=== PATIENT | female | born 1965 | race Caucasian/White ===

== ENCOUNTER 2016-04-29 01:45 | Emergency (ER) | payer OTHER ==
[~2016-04-29] VITALS: Ht 162.5 cm; Wt 102.1 kg
[~2016-04-29 01:45] MED LIST: ALBUTEROL0.09 MG/A2 IH; AMARYL4 MG PO; AMITRIPTYLINE25 MG PO; AMITRIPTYLINE50 MG PO; ASPIRIN ADULT L81 M1 PO; ASPIRIN81 M1 PO; AVELOX400 MG PO; CYCLOBENZAPRINE10 MG PO; DOXYCYCLINE HY100 M3 PO; ELAVIL25 MG PO; FLONASE 0.05% 121 EA NAS; HUMALOG 751 UNIT/0.0 SC; HUMALOG100 U/ML SC; IMODIUM2 MG PO; KEFLEX500 MG PO; LISINOPRIL10 MG PO; LISINOPRIL5 MG PO; LOMOTIL 0.025 M1 TA1 PO; LOMOTIL 0.025 M1 TAB PO; MELATONIN3 MG PO; MOTRIN800 MG PO; NAPROSYN500 MG PO; NEURONTIN100 MG PO; NEURONTIN600 MG PO; NEURONTIN800 MG PO; NORCO 5-325 TA1 EACH PO; Orphenadrine C100 MG PO; PREDNICOT10 MG PO; PREDNICOT20 MG PO; ROBITUSSIN AC 110 ML PO; SINGULAIR10 MG PO; TRAD5TAB1 PO; ULTRAM50 MG PO; VOLTAREN50 M1 PO; WOMEN'S ONE DAI1 TAB; ZITHROMAX250 MG PO; ZOFRAN ODT4 MG SL; ZOFRAN ODT8 MG PO; ZOFRAN4 MG PO; [UNRECOGNIZED DRUG - OTHER]
[2016-04-29 02:09] LABS: BASO % 0.3 % (0.0-1.0); HEMATOCRIT 38.6 % (37.0-47.0); HEMOGLOBIN 13.4 g/dl (12.0-16.0); LYMPH # 0.8 10*3/uL (1.3-4.4); LYMPH % 11.4 % (27.0-41.0); MEAN CELL VOLUME 83.9 fl (81.0-99.0); MEAN CORPUSCULAR HGB 29.1 pg (27.0-31.0); MEAN CORPUSCULAR HGB CONC 34.7 g/dl (33.0-37.0); MONO # 0.5 10*3/uL (0.1-1.0); MONO % 6.7 % (3.0-9.0); NEUT # 5.4 10*3/uL (2.3-7.9); NEUT % 81.3 % (47.0-73.0); PLATELET COUNT AUTOMATED 228 10*3/uL (130-400); RED CELL DISTRI WIDTH 12.4 % (0-14.5); WHITE BLOOD COUNT 6.7 10*3/uL (4.8-10.8)
[2016-04-29 02:22] LABS: ALBUMIN 3.4 gm/dl (3.1-4.5); ALKALINE PHOSPHATASE 74 U/L (45-117); BUN 12 mg/dl (7-24); CARBON DIOXIDE 23 mmol/L (21-32); CHLORIDE 105 mmol/L (98-107); EST GLOM FILT AFRICAN AMERICAN > 60 ml/min; GLUCOSE 410 mg/dL (65-99); POTASSIUM 4.1 mmol/L (3.5-5.1); SGOT/AST 9 IU/L (3-35); SGPT/ALT 17 U/L (12-78); SODIUM 140 mmol/L (136-145); TOTAL PROTEIN 6.7 gm/dL (6.4-8.2)
[2016-04-29] MEDS ORDERED: ZOFRAN ODT4 MG SL (02:49)
[2016-04-29 03:11] LABS: BILIRUBIN NEGATIVE (NEGATIVE); BLOOD NEGATIVE (NEGATIVE); CLARITY CLEAR (CLEAR); COLOR YELLOW (YELLOW); GLUCOSE 3+ (NEGATIVE); KETONE 2+ (NEGATIVE); LEUKO ESTERASE NEGATIVE (NEGATIVE); NITRITE NEGATIVE (NEGATIVE); PROTEIN NEGATIVE (NEGATIVE); UROBILINOGEN 0.2 E.U./dl (0.2-1.0)
[2016-04-29 03:18] LABS: EPITHELIAL CELLS 15-20; URINE REFLEX COMMENT NO (NO)
== END 2016-04-29 03:35 | disposition home or self-care (01) ==
LOC: ED 01:45
PROVIDERS: Emergency Medicine
DX: R11.2 Nausea with vomiting, unspecified (principal); R19.7 Diarrhea, unspecified; R73.9 Hyperglycemia, unspecified; I10 Essential (primary) hypertension; E13.10 Other specified diabetes mellitus with ketoacidosis without coma; Z88.6 Allergy status to analgesic agent; Z88.1 Allergy status to other antibiotic agents; Z88.8 Allergy status to other drugs, medicaments and biological substances; Z79.82 Long term (current) use of aspirin; Z79.899 Other long term (current) drug therapy

== ENCOUNTER 2016-06-30 17:18 | Inpatient (IN) | payer OTHER ==
[~2016-06-30] VITALS: Ht 162.6 cm; Wt 96.3 kg
--- NOTE | ~2016-06-30 | PR ---
[place], [place] PROGRESS NOTE NAME: SUELLEN ERWIN UNIT #: [id number] ROOM: 528 DOCTOR: RENETTA PHOENIX MD BIRTHDATE: [birth year] DOS: SUBJECTIVE: The patient who has been admitted to the hospital with nausea, vomiting and diarrhea, she is slowly getting better. She is still having some cramps in the abdomen, and she is tolerating food good and her abdomen is not distended. There is no localized tenderness in the abdomen. Her urine culture and sensitivity did not grow any bacteria. Clostridium difficile toxins were negative. OBJECTIVE: VITAL SIGNS: Blood pressure 135/70, pulse 80, respirations 20, temperature 97.6. PLAN: We will continue with the present treatment, possibly she will go home tomorrow. RENETTA PHOENIX MD CM:PNTRANS [phone] RENETTA PHOENIX MD 07/04/16 0538 interface
--- NOTE | ~2016-06-30 | CON ---
[place], [place] REPORT OF CONSULTATION NAME: SUELLEN ERWIN UNIT #: [id number] ROOM: 528 DOCTOR: JEANETTE KRAMERAYSE BIRTHDATE: [birth year] DOS: 07/03/2016 CHIEF COMPLAINT: A 50-year-old patient who was presented with chief complaint of epigastric abdominal pain, diarrhea. HISTORY OF PRESENT ILLNESS: The patient had endoscopic evaluation, was found to have gastritis. Gastric biopsy was done and under medication. The patient's consultation was dictated irritable bowel syndrome, diabetes mellitus, hypertension, obesity, gastroenteritis, all has been recognized. PAST SURGICAL HISTORY: Carpal tunnel, cholecystectomy, ____ tubal ligation. REVIEW OF SYSTEMS: HEENT: Denies double vision, blurred vision. RESPIRATORY: Denies shortness of breath. CARDIOVASCULAR: Denies chest pain. DIGESTIVE SYSTEM: Nausea and vomiting has improved; however, she is saying that she has 2-3 liquid bowel movement. Stool has been sent for evaluation. PHYSICAL EXAMINATION: VITAL SIGNS: Stable. HEENT: Head normocephalic, nontraumatic. Mouth and buccal mucosa benign. NECK: Supple, no thyromegaly. CHEST: Symmetric anatomy, equal expansion. No wheeze, no rhonchi. HEART: Normal sinus rhythm, no gallop, no murmur. ABDOMEN: Soft. No hepato-organomegaly. Bowel sounds present. No pulsatile mass. Obese. EXTREMITIES: No cyanosis, no pedal edema. NEUROLOGICAL: Alert, oriented to time, place, person. IMPRESSION AND PLAN: Liquid diarrhea, C. diff negativity, urine and blood cultures negative. The patient with history of irritable bowel syndrome. The patient drinks 2-3 liters of carbonated soda per day that I have discussed with her in her room and the last bottle was just been opened and I believe that is the culprit for sugar overloading in the patient. I have asked her to abstain from drinking carbonated soda. Hopefully, she will comply and that would be the cause for diarrhea. Otherwise, if she continues to have diarrhea, then next day or two, we will consider colonoscopy. OTHER ADJUNCTIVE DIAGNOSES: As outlined in the paragraph of past medical and surgical history. [place], [place] REPORT OF CONSULTATION NAME: RIPSUELLEN GRAMAJO UNIT #: [id number] ROOM: 528 DOCTOR: AYSE REID MD BIRTHDATE: [birth year] AYSE REID MD CM:CONSTR:REPORT OF CONSULTATION 1200 07/04/16 0717 interface
--- NOTE | ~2016-06-30 | CON ---
[place], [place] REPORT OF CONSULTATION NAME: SUELLEN ERWIN UNIT #: [id number] ROOM: 528 DOCTOR: AYSE REID MD BIRTHDATE: [birth year] DOS: 07/01/2016 HISTORY OF PRESENT ILLNESS: A 50-year-old patient who presented with chief complaint of nausea, vomiting, epigastric distress, and changes in bowel habits, few bowel movements that she considers to be diarrhea. The patient has been investigated in last year with normal colonoscopic evaluation. At the time of admission, white blood cell was 7, H and H of 13 and 39. Differential within normal limits except glucose was 400+. Electrolytes balanced, lipase, and liver function tests are all within normal limits. Troponin normal. Urinalysis was unremarkable except 1+ ketones that was expected. CBC differential within normal limits. Hemoglobin A1c 10.4. Basic metabolic panel has been reassessed. Magnesium and phosphorus within normal limits. PAST MEDICAL HISTORY: Associated hypertension, obesity, IBS, diabetes mellitus, most likely viral gastroenteritis. PAST SURGICAL HISTORY: Cholecystectomy, carpal tunnel, podiatric, and tubal ligation. SOCIAL HISTORY: Nonsmoker, nonalcohol consumer. ALLERGIES: To multiple medications including DOXYCYCLINE, LEVAQUIN, KEFLEX, PERCOCET, COMPAZINE as well, and TESSALON. MEDICATIONS: List has been reviewed including amitriptyline. REVIEW OF SYSTEMS: HEENT: Denies double vision, blurred vision. RESPIRATORY: Denies shortness of breath. CARDIOVASCULAR: Denies chest pain. DIGESTIVE SYSTEM: Nausea, vomiting, diarrhea. PHYSICAL EXAMINATION: VITAL SIGNS: Stable. GENERAL: No acute distress, nontoxic patient. HEENT: Head normocephalic, nontraumatic. Mouth and buccal mucosa benign. NECK: Supple, no thyromegaly. CHEST: Symmetric anatomy, equal expansion. No wheeze, no rhonchi. HEART: Normal sinus rhythm, no gallop, no murmur. ABDOMEN: Obese, soft. No hepato-organomegaly. Bowel sounds positive. Nonspecific tenderness. EXTREMITIES: No cyanosis. No pedal edema. Evidence of vitiligo upper and lower extremities anatomy and head and neck was noticed. NEUROLOGIC: Alert, oriented to time, place, person. IMPRESSION: 1. Diabetes mellitus, diabetic ketoacidosis with 1+ ketones positivity, glucose was approximately 445. Most likely viral gastroenteritis as a cause of diarrhea and possibility of irritable bowel syndrome, hypertension, obesity, all has been recognized. [place], [place] REPORT OF CONSULTATION NAME: SUELLEN ERWIN UNIT #: [id number] ROOM: 528 DOCTOR: AYSE REID MD BIRTHDATE: [birth year] PLAN AND DISCUSSION: We are going to endoscopically evaluate her upper GI tract and further decision to see if she has to be discharged and followed up as an outpatient. AYSE REID MD CM:CONSTR:REPORT OF CONSULTATION 1453 07/02/16 0428 interface
--- NOTE | ~2016-06-30 | O ---
[place], [place] OPERATIVE NOTE NAME: SUELLEN ERWIN UNIT #: [id number] ROOM: 528 DOCTOR: AYSE REID MD BIRTHDATE: [birth year] DOS: GASTROENDOSCOPIC REPORT INDICATIONS: A 50-year-old patient who has presented with chief complaint of epigastric abdominal pain, dyspepsia, nausea, vomiting, undergoing investigation. The patient with history of diarrhea, suspected of viral gastroenteritis in addition. Consultation in detail has been dictated. PROCEDURE: Today's procedure part of investigation is panendoscopy plus biopsy and photographic series. PREMEDICATION: Versed and Diprivan. SCOPE: Olympus forward-viewing gastroscope Q10 video. REPORT: After putting the patient in the left lateral position and after application of lubricant to the scope, the scope was introduced. Thereafter, under direct visualization, I advanced through the length of esophagus without difficulty. Distal esophagitis was noticed. Gastric pouch was entered. 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 Duodenal bulb, second and third part within normal limit. Antrum was biopsied. The patient extubated, tolerated the procedure well. IMPRESSION: Watermelon gastritis, bile reflux gastritis, status post biopsy. PLAN AND DISCUSSION: Protonix 40 mg IV b.i.d. while inpatient and as an outpatient 40 mg daily. As far as the diarrhea is concerned, is going to be self limiting. Diet is going to be soft. Clinical reassessment. Thank you very much indeed. AYSE REID MD CM:OPRECORD:OPERATIVE NOTE [phone] AYSE REID MD 07/01/162109 interface
--- NOTE | ~2016-06-30 | PR ---
[place], [place] PROGRESS NOTE NAME: SUELLEN REWIN UNIT #: [id number] ROOM: 528 DOCTOR: RENETTA PHOENIX MD BIRTHDATE: [birth year] DOS: 07/01/2016 ADDENDUM: The patient who has been admitted to hospital with vomiting, nausea and diarrhea, and the patient is stable. The detailed note will be dictated by the resident. I discussed with him. I saw this patient and also spoke with her personally. RENETTA PHOENIX MD CM:PNTRANS [phone] RENETTA PHOENIX MD 07/05/16 0654 interface
--- NOTE | ~2016-06-30 | PR ---
[place], [place] PROGRESS NOTE [id number] UN[facility] #: [id number] ROOM: 528 DOCTOR: RENETTA PHOENIX MD BIRTHDATE: [birth year] DOS: SUBJECTIVE: The patient, who has been admitted to hospital with nausea, vomiting and diarrhea. She is feeling better. She is able to tolerate liquids very well and she is also able to eat and she did not have any vomiting, and stools are formed, but she is still having 3 stools since yesterday and she denies having any pain in the abdomen and the patient was seen by Dr. Rizo, who is going to do her panendoscopy. This was done yesterday. Her stomach and duodenum were normal. Biopsy was taken. She has some gastritis due to bile reflex, otherwise it was normal. Advised the patient to be put on Protonix and her C. diff is negative. CK-MB and troponin level is normal. Blood pressure 120/64, pulse 78, respirations 18, temperature 98.4. I will encourage the patient to ambulate, put her Hep-Lock. I will continue to the other treatment, the same medication. The patient advised to drink lot of liquids. RENETTA PHOENIX MD CM:PNTRANS [phone] RENETTA PHOENIX MD 07/02/1639 interface
[2016-06-30 17:37] VITALS: BP 137/77
[2016-06-30] MEDS ORDERED: LISINOPRIL10 M1 PO (17:38)
[2016-06-30] MEDS ORDERED: MELATONIN10 M4 PO (17:39)
[2016-06-30] MEDS ORDERED: CYCLOBENZAPRINE10 MG PO (17:40)
[2016-06-30 18:00] LABS: BASO % 0.4 % (0.0-1.0); HEMATOCRIT 39.6 % (37.0-47.0); HEMOGLOBIN 13.3 g/dl (12.0-16.0); LYMPH % 14.4 % (27.0-41.0); MEAN CELL VOLUME 85.7 fl (81.0-99.0); MEAN CORPUSCULAR HGB 28.8 pg (27.0-31.0); MEAN CORPUSCULAR HGB CONC 33.6 g/dl (33.0-37.0); MONO # 0.4 10*3/uL (0.1-1.0); MONO % 6.1 % (3.0-9.0); NEUT # 5.7 10*3/uL (2.3-7.9); NEUT % 78.7 % (47.0-73.0); PLATELET COUNT AUTOMATED 254 10*3/uL (130-400); RED BLOOD COUNT 4.62 10*6/uL (4.10-5.10); RED CELL DISTRI WIDTH 12.2 % (0-14.5); WHITE BLOOD COUNT 7.2 10*3/uL (4.8-10.8)
[2016-06-30 18:16] LABS: ALBUMIN 3.6 gm/dl (3.1-4.5); ALKALINE PHOSPHATASE 84 U/L (45-117); BILIRUBIN, TOTAL 0.7 mg/dl (0.2-1.0); BUN 12 mg/dl (7-24); CARBON DIOXIDE 24 mmol/L (21-32); CHLORIDE 101 mmol/L (98-107); EST GLOM FILT AFRICAN AMERICAN > 60 ml/min; GLUCOSE 445 mg/dL (65-99); SGOT/AST 8 IU/L (3-35); SGPT/ALT 14 U/L (12-78); SODIUM 135 mmol/L (136-145); TOTAL PROTEIN 6.8 gm/dL (6.4-8.2)
[2016-06-30 19:12] LABS: BILIRUBIN NEGATIVE (NEGATIVE); BLOOD NEGATIVE (NEGATIVE); CLARITY CLEAR (CLEAR); COLOR YELLOW (YELLOW); GLUCOSE 3+ (NEGATIVE); KETONE 1+ (NEGATIVE); LEUKO ESTERASE NEGATIVE (NEGATIVE); NITRITE NEGATIVE (NEGATIVE); PH 5.5 (5.0-9.0); PROTEIN NEGATIVE (NEGATIVE); SPECIFIC GRAVITY <= 1.005 (1.005-1.030); UROBILINOGEN 0.2 E.U./dl (0.2-1.0)
[2016-06-30 19:19] LABS: BACTERIA TRACE
[2016-06-30 19:20] LABS: RBC 0-2 rbc/hpf (0-2)
[2016-06-30 19:21] LABS: URINE REFLEX COMMENT YES (NO)
[2016-06-30 20:25] VITALS: BP 135/76
[2016-07-01] VITALS (11 sets, daily range): BP systolic 116–142; BP diastolic 51–67
[2016-07-01 00:44] LABS: CPK 44 U/L (26-192)
[2016-07-01 00:47] LABS: CKMB < 0.5 ng/ml (0.5-3.6); TROPONIN I < 0.015 ng/ml (<0.045)
[2016-07-01 04:25] LABS: BASO % 0.6 % (0.0-1.0); HEMATOCRIT 37.3 % (37.0-47.0); HEMOGLOBIN 12.7 g/dl (12.0-16.0); LYMPH # 1.3 10*3/uL (1.3-4.4); LYMPH % 26.2 % (27.0-41.0); MEAN CELL VOLUME 86.5 fl (81.0-99.0); MEAN CORPUSCULAR HGB 29.5 pg (27.0-31.0); MONO # 0.4 10*3/uL (0.1-1.0); MONO % 8.9 % (3.0-9.0); NEUT # 3.1 10*3/uL (2.3-7.9); NEUT % 63.7 % (47.0-73.0); PLATELET COUNT AUTOMATED 250 10*3/uL (130-400); RED BLOOD COUNT 4.31 10*6/uL (4.10-5.10); RED CELL DISTRI WIDTH 12.2 % (0-14.5); WHITE BLOOD COUNT 4.9 10*3/uL (4.8-10.8)
[2016-07-01 04:37] LABS: BUN 8 mg/dl (7-24); CARBON DIOXIDE 29 mmol/L (21-32); CHLORIDE 108 mmol/L (98-107); EST GLOM FILT AFRICAN AMERICAN > 60 ml/min; GLUCOSE 171 mg/dL (65-99); POTASSIUM 3.7 mmol/L (3.5-5.1); SODIUM 144 mmol/L (136-145)
[2016-07-01 04:42] LABS: FREE T4 1.04 ng/dl (0.76-1.46); PHOSPHOROUS 3.5 mg/dL (2.5-4.9)
[2016-07-01 04:45] LABS: HEMOGLOBIN A1c 10.4 % (4.8-5.6)
[2016-07-01 06:16] LABS: CKMB 0.6 ng/ml (0.5-3.6); CPK 48 U/L (26-192)
[2016-07-01 06:23] LABS: TROPONIN I < 0.015 ng/ml (<0.045)
[2016-07-01] MEDS ORDERED: IMITREX100 MG PO (09:56)
[2016-07-01 12:10] LABS: CKMB 0.8 ng/ml (0.5-3.6); CPK 41 U/L (26-192)
[2016-07-01 12:13] LABS: TROPONIN I < 0.015 ng/ml (<0.045)
[2016-07-02 00:27] VITALS: BP 120/64
[2016-07-02 08:00] VITALS: BP 150/76
[2016-07-02 12:00] VITALS: BP 139/79
[2016-07-02 16:00] VITALS: BP 140/79
[2016-07-02 20:00] VITALS: BP 143/63
[2016-07-03] VITALS: BP 135/70
[2016-07-03 08:00] VITALS: BP 146/60
[2016-07-03 12:00] VITALS: BP 139/74
[2016-07-03 16:00] VITALS: BP 130/75
[2016-07-03 20:00] VITALS: BP 133/85
[2016-07-04] VITALS: BP 128/71
[2016-07-04 08:00] VITALS: BP 131/65
[2016-07-04 12:00] VITALS: BP 135/76
[2016-07-04] MEDS ORDERED: FLAGYL500 MG PO (14:18)
[2016-07-06 20:13] LABS: FINAL RESULT Final report (.)
== END 2016-07-04 15:59 | disposition home or self-care (01) | DRG 871 ==
LOC: ED 17:18 → 5E 19:04 → EDHOLD 19:04 → 5E 19:58
PROVIDERS: Student in an Organized Health Care Education/Training Program
PROC: 0DB68ZX Excision of Stomach, Via Natural or Artificial Opening Endoscopic, Diagnostic (ICD-10-PCS; principal; 2016-07-01)
DX: A41.9 Sepsis, unspecified organism (principal); E13.10 Other specified diabetes mellitus with ketoacidosis without coma; E11.49 Type 2 diabetes mellitus with other diabetic neurological complication; E87.1 Hypo-osmolality and hyponatremia; K52.9 Noninfective gastroenteritis and colitis, unspecified; K58.9 Irritable bowel syndrome, unspecified; I10 Essential (primary) hypertension; Z90.49 Acquired absence of other specified parts of digestive tract; Z82.49 Family history of ischemic heart disease and other diseases of the circulatory system; Z79.4 Long term (current) use of insulin; K29.60 Other gastritis without bleeding; E66.9 Obesity, unspecified; Z68.37 Body mass index [BMI] 37.0-37.9, adult

== ENCOUNTER 2016-11-18 18:30 | Emergency (ER) | payer BC ==
[~2016-11-18] VITALS: Ht 162.5 cm; Wt 102.1 kg
[~2016-11-18 18:30] MED LIST changes: +FLAGYL500 MG PO; +IMITREX100 MG PO; +LISINOPRIL10 M1 PO; +MELATONIN10 M4 PO
[2016-11-18 18:58] LABS: BILIRUBIN NEGATIVE (NEGATIVE); BLOOD 1+ (NEGATIVE); CLARITY SL CLOUDY (CLEAR); COLOR YELLOW (YELLOW); GLUCOSE 3+ (NEGATIVE); KETONE NEGATIVE (NEGATIVE); LEUKO ESTERASE NEGATIVE (NEGATIVE); NITRITE NEGATIVE (NEGATIVE); PH 6.5 (5.0-9.0); UROBILINOGEN 0.2 E.U./dl (0.2-1.0)
[2016-11-18 19:06] LABS: BACTERIA 1+; WBC 21-30 wbc/hpf (0-5)
[2016-11-18 20:21] LABS: BASO % 0.2 % (0.0-1.0); HEMATOCRIT 35.1 % (37.0-47.0); HEMOGLOBIN 11.9 g/dl (12.0-16.0); LYMPH # 0.5 10*3/uL (1.3-4.4); MEAN CORPUSCULAR HGB 29.2 pg (27.0-31.0); MEAN CORPUSCULAR HGB CONC 33.9 g/dl (33.0-37.0); MEAN PLATELET VOLUME 10.7 fl (9.6-12.3); MONO # 0.6 10*3/uL (0.1-1.0); MONO % 5.7 % (3.0-9.0); NEUT % 89.7 % (47.0-73.0); PLATELET COUNT AUTOMATED 195 10*3/uL (130-400); RED BLOOD COUNT 4.08 10*6/uL (4.10-5.10); RED CELL DISTRI WIDTH 12.5 % (0-14.5); WHITE BLOOD COUNT 11.1 10*3/uL (4.8-10.8)
[2016-11-18 20:37] LABS: ALBUMIN 3.1 gm/dl (3.1-4.5); ALKALINE PHOSPHATASE 75 U/L (45-117); BUN 19 mg/dl (7-24); CHLORIDE 104 mmol/L (98-107); CREATININE 0.67 mg/dL (0.55-1.02); LIPASE 66 U/L (73-393); MAGNESIUM 1.8 mg/dL (1.5-2.1); POTASSIUM 3.7 mmol/L (3.5-5.1); SGOT/AST 7 IU/L (3-35); SGPT/ALT 11 U/L (12-78); SODIUM 136 mmol/L (136-145); TOTAL PROTEIN 6.4 gm/dL (6.4-8.2)
[2016-11-19] MEDS ORDERED: CIPRO250 MG PO (01:05)
[2016-11-19] MEDS ORDERED: NORCO 5-325 TA1 EACH PO (01:05)
== END 2016-11-19 01:20 | disposition home or self-care (01) ==
LOC: ED 18:30
PROVIDERS: Emergency Medicine; Emergency Medicine Emergency Medical Services
DX: N39.0 Urinary tract infection, site not specified (principal); R10.30 Lower abdominal pain, unspecified; E13.40 Other specified diabetes mellitus with diabetic neuropathy, unspecified; I10 Essential (primary) hypertension; K58.9 Irritable bowel syndrome, unspecified; Z98.890 Other specified postprocedural states; Z98.51 Tubal ligation status; Z90.49 Acquired absence of other specified parts of digestive tract; Z79.82 Long term (current) use of aspirin; Z79.899 Other long term (current) drug therapy; Z88.3 Allergy status to other anti-infective agents; Z88.5 Allergy status to narcotic agent; Z88.1 Allergy status to other antibiotic agents; Z88.8 Allergy status to other drugs, medicaments and biological substances

== ENCOUNTER 2016-11-20 18:08 | Inpatient (IN) | payer BC ==
[~2016-11-20] VITALS: Ht 162.5 cm; Wt 92.2 kg
--- NOTE | ~2016-11-20 | DS ---
[place], [place] DISCHARGE SUMMARY NAME: SUELLEN ERWIN [facility] #: [id number] UNIT #: [id number] ROOM: 415 DOCTOR: XAVIER BROWN MD BIRTHDATE: [birth year] DOS: 11/22/2016 DISCHARGE DIAGNOSES: 1. Diabetic ketoacidosis, resolved. 2. Poor compliance with treatment. 3. Type 1 insulin-requiring diabetes mellitus. 4. Diabetic polyneuropathy. 5. Irritable bowel syndrome. 6. Benign essential hypertension. HOSPITAL COURSE: The patient presented with complaints of nausea, vomiting, dizziness, diarrhea and hyperglycemia. The patient was found to be in diabetic ketoacidosis and admitted to ICU where she was treated with infusion of normal saline as well as insulin and blood sugars monitored on regular medication regularly along with serum electrolytes and CO2 level and bicarb levels. Once the patient's bicarb levels came above 21 and she was out of diabetic ketoacidosis, the patient was taken off insulin infusion and started on a sliding scale of regular insulin. The patient's home dose of long-acting insulin 70/30 was restarted. We continued to monitor blood sugars and sugars have been now ranging between 150-250 mostly. The patient has uncontrolled diabetes from poor compliance with treatment. The patient appears to have achieved maximal benefit from this admission and has been slowly rehydrated and has good urine output along with normal serum electrolytes. The patient was also given potassium supplement during her stay at the hospital and potassium level of 3.8. The patient is feeling good and would like to be discharged to home. Benign essential hypertension with controlled blood pressures. The patient is poorly compliant with high sugar control and diet and she was educated on diabetic diet as well as the importance of good sugar control. LABORATORY DATA: Normal serum electrolytes. Blood sugars were ranging 150-250. Urine cultures grew E. coli sensitive to all antibiotics. The patient has urinary tract infection with urine culture growing E. coli ____. DISCHARGE MANAGEMENT: 1. A 70/30 insulin, 30 units before every meal, lisinopril 10 mg a day, aspirin 81 mg a day, gabapentin 800 mg b.i.d., Flexeril 10 mg every 8 hours, amitriptyline 25 mg daily, ciprofloxacin 250 mg b.i.d. for 5 more days. 2. Follow up with Dr. Juan Bolden next week. 3. For hypertension, the patient takes lisinopril. 4. For diabetic polyneuropathy, the patient takes gabapentin. 5. Chronic primary insomnia, treated and controlled with p.r.n. melatonin. 6. The patient's E. coli urine infection to be treated with ciprofloxacin. [place], [place] DISCHARGE SUMMARY NAME: SUELLEN ERWIN UNIT #: [id number] ROOM: [facility] DOCTOR: XAVIER BROWN MD BIRTHDATE: [birth year] XAVIER BROWN MD CM:MAE 29 [phone] XAVIER BROWN MD 11/22/162118 interface
--- NOTE | ~2016-11-20 | WRIGHTHP ---
[place], [place] PATIENT HISTORY AND PHYSICAL EXAM NAME: SUELLEN ERWIN [facility] #: [id number] UNIT #: [id number] ROOM: [facility] DOCTOR: XAVIER BROWN MD BIRTHDATE: [birth year] DOS: 11/20/2016 HISTORY OF PRESENT ILLNESS: A 51-year-old female with a past medical history of: 1. History of type 1 diabetes mellitus, insulin requiring. 2. Diabetic polyneuropathy. 3. Irritable bowel syndrome. 4. Benign essential hypertension. She presented to the Emergency Department with nausea, vomiting, dizziness, diarrhea and diabetic ketoacidosis. The patient was admitted to ICU and started on hydration with normal saline along with insulin infusion. As her condition improved, she was started on basal insulin along with every 4 hour insulin sliding scale. The patient's serum electrolytes, basic metabolic profile were monitored every 6 hours. The patient started to feel much better. She had no nausea, vomiting, dizziness anymore. There were no complaints of any chest pains. No shortness of breath. No other GI or urinary symptoms. The patient says she had been sick for a few days before she came to the Emergency Department. She was already on ciprofloxacin for urinary infection before she came to the Emergency Room. The patient had failed outpatient treatment. REVIEW OF SYSTEMS: LUNGS: No increasing shortness of breath or wheezing. GASTROINTESTINAL: The patient had nausea, vomiting. No diarrhea or constipation. CARDIOVASCULAR: No chest pains or palpitations. FAMILY HISTORY: Noncontributory. HOME MEDICATIONS: The patient takes 70/30 insulin, lisinopril, Flexeril, sumatriptan, amitriptyline. She was on ciprofloxacin, gabapentin at home. ALLERGIES: Known allergies to COMPAZINE, PERCOCET, TESSALON, KEFLEX, LEVAQUIN. PHYSICAL EXAMINATION: GENERAL: Alert and oriented x 3, in no visible distress. HEENT AND NECK: Extraocular movements are intact. Sclerae are anicteric. Oral mucosa is moist and clean. No obvious facial weakness. Neck is supple without any lymphadenopathy. No thyromegaly. No JVD. No carotid arterial bruits. LUNGS: Clear to auscultation. No wheezing. No rhonchi. CARDIOVASCULAR SYSTEM: Heart rate is regular in rate and rhythm. S1 and S2 normally audible. No significant murmur or any other abnormal cardiac sounds. ABDOMEN: Soft, nontender. No obvious organomegaly. Bowel sounds are present. No obvious herniation. EXTREMITIES: Without significant cyanosis or edema. Warm to touch. CENTRAL NERVOUS SYSTEM: Alert and oriented x 3. Cranial nerves II-XII are intact. Speech is normal. The patient is able to move all extremities. Normal muscle strength. Deep tendon reflexes are equal on both sides. Plantars were [place], [place] PATIENT HISTORY AND PHYSICAL EXAM [facility]: [id number] UNIT #: [id number] ROOM: [facility] DOCTOR: XAVIER BROWN MD BIRTHDATE: [birth year] downgoing. LABORATORY DATA: Normal serum electrolytes now. CO2 improved to 17 from 13 at admission. No leukocytosis. Ketones are positive. IMPRESSION: 1. The patient presenting with diabetic ketoacidosis with poor compliance, with treatment history. The patient had recurrent admissions to the hospital for the same issues. The patient was treated with hydration with normal saline, potassium chloride, insulin infusion was used and regular serum electrolytes, BUN and creatinine, CO2 were checked. Plan is to get her CO2 normal on the basic metabolic profile to treat her diabetic ketoacidosis before we stop her dextrose infusion. The patient will be put back on IV insulin infusion if necessary. I will repeat her basic metabolic profile at noon. The patient has been restarted on her basal insulin and also being given subcutaneous insulin every 4 hours according to sliding scale now that IV insulin was stopped by the nursing staff. The patient is being monitored very closely in [facility] and she is asymptomatic now and kidney function, BUN and creatinine remain normal along with normal serum electrolytes and potassium. 2. Urinary tract infection. Urine cultures are still pending. Blood cultures have been negative. The patient is being treated with ciprofloxacin for urinary tract infection because she has multiple allergies, although they seem to be more like side effects than allergies according to previous records. 3. Benign essential hypertension. Blood pressure is to be monitored and treated. 4. Diabetic polyneuropathy, symptoms are controlled. XAVIER BROWN MD CM:HISPHYS:PATIENT HISTORY AND PHYSICAL EXAMINATION 1110 1224 XAVIER BROWN MD 11/21/16 1223 interface
[~2016-11-20 18:08] MED LIST changes: +CIPRO250 MG PO
[2016-11-20 18:10] VITALS: BP 135/69
[2016-11-20 18:54] LABS: BASO % 0.4 % (0.0-1.0); HEMOGLOBIN 13.6 g/dl (12.0-16.0); LYMPH # 0.7 10*3/uL (1.3-4.4); LYMPH % 9.9 % (27.0-41.0); MEAN CORPUSCULAR HGB 29.6 pg (27.0-31.0); MEAN CORPUSCULAR HGB CONC 32.6 g/dl (33.0-37.0); MEAN PLATELET VOLUME 10.6 fl (9.6-12.3); MONO # 0.7 10*3/uL (0.1-1.0); MONO % 8.7 % (3.0-9.0); NEUT % 79.8 % (47.0-73.0); PLATELET COUNT AUTOMATED 219 10*3/uL (130-400); RED BLOOD COUNT 4.59 10*6/uL (4.10-5.10); RED CELL DISTRI WIDTH 12.3 % (0-14.5); WHITE BLOOD COUNT 7.5 10*3/uL (4.8-10.8)
[2016-11-20 18:55] LABS: HEMATOCRIT 41.7 % (37.0-47.0); MEAN CELL VOLUME 90.8 fl (81.0-99.0)
--- NOTE | 2016-11-20 18:59 | NUR ---
NURSE TO NURSE REPORT GIVEN TO THIS RN.PT RESTING IN BED.FLUIDS CONTINUE TO INFUSE.
[2016-11-20 19:00] LABS: ACT PARTIAL THROMBO TIME 30.2 SECONDS (20.8-31.5)
[2016-11-20 19:06] LABS: ALBUMIN 3.3 gm/dl (3.1-4.5); ALKALINE PHOSPHATASE 113 U/L (45-117); BUN 14 mg/dl (7-24); CHLORIDE 99 mmol/L (98-107); CREATININE 0.82 mg/dL (0.55-1.02); LIPASE 46 U/L (73-393); MAGNESIUM 1.8 mg/dL (1.5-2.1); POTASSIUM 4.2 mmol/L (3.5-5.1); SGOT/AST 14 IU/L (3-35); SGPT/ALT 25 U/L (12-78); SODIUM 132 mmol/L (136-145); TOTAL PROTEIN 7.7 gm/dL (6.4-8.2)
[2016-11-20 19:08] LABS: TROPONIN I < 0.015 ng/ml (<0.045)
[2016-11-20 19:48] VITALS: BP 138/69
--- NOTE | 2016-11-20 20:42 | NUR ---
PT REFUSING ICU ADMISSION,PT REQUESTING A REGULAR ROOM.ERASMO KAPADIA NOTIFIED.
--- NOTE | 2016-11-20 20:43 | NUR ---
ERASMO BADILLOE IN TO SPEAK WITH PT.PT AGREEABLE TO ADMISSION AT THIS TIME.
[2016-11-20 21:00] VITALS: BP 132/65
--- NOTE | 2016-11-20 21:00 | NUR ---
A 51yr old female, admitted to ICCU, under the services of Dr. STEPHANIE KRAMER,[facility] with a diagnosis of DKA. Chief complaint is nausea and vomiting. Patient arrived via stretcher from ER. Monitor applied. Initial assessment completed. Vital signs taken and recorded. See assessment for past medical history, medications and allergies. Patient and/or family oriented to unit. [facility] visitation policy reviewed. Clothing/patient valuable form completed. ALBERT SAM L
[2016-11-21] VITALS: BP 136/68
--- NOTE | 2016-11-21 00:06 | NUR ---
ZOFRAN GIVEN EARLIER FOR NAUSEA, EFFECTIVE. IMITREX GIVEN FOR MIGRAINE, INEFFECTIVE FOR MIGRAINE. NICHOLAS WILKINS RN
--- NOTE | 2016-11-21 00:08 | NUR ---
TYLENOL GIVEN AT 2238 ORDERED FOR HEADACHE PAIN, INEFFECTIVE. NICHOLAS WILKINS RN
[2016-11-21 00:13] LABS: BUN 11 mg/dl (7-24); CHLORIDE 110 mmol/L (98-107); CREATININE 0.66 mg/dL (0.55-1.02); POTASSIUM 3.8 mmol/L (3.5-5.1); SODIUM 138 mmol/L (136-145)
[2016-11-21 04:00] VITALS: BP 132/62
[2016-11-21 05:18] LABS: BUN 10 mg/dl (7-24); CHLORIDE 112 mmol/L (98-107); CREATININE 0.55 mg/dL (0.55-1.02); POTASSIUM 4.2 mmol/L (3.5-5.1); SODIUM 140 mmol/L (136-145)
--- NOTE | 2016-11-21 05:46 | NUR ---
PT'S ANION GAP CLOSED AT 11. INSULIN DRIP DISCONTINUE. PT. TO RECEIVED BEDSIDE GLUCS Q4H WITH COVERAGE ORDERED. NICHOLAS WILKINS RN
[2016-11-21 08:00] VITALS: BP 157/80
--- NOTE | 2016-11-21 08:30 | NUR ---
Exercise Instruct in to talk to patient. Patient states lives at HOME with HER SON. There are MANY steps in the home. Physician: DR LANDIN Pharmacy: [facility] IN [place] Home health services: NONE Patient's level of ADLs: INDEPENDENT Patient has working utilities: YES DME: NONE Follow-up physician's appointment after d/c: PREFERS TO MAKE HER OWN APPT Does patient want to access PORTAL?: Discharge plan HOME. RAYMON MUELLER
[2016-11-21 11:58] LABS: BUN 9 mg/dl (7-24); CHLORIDE 108 mmol/L (98-107); CREATININE 0.77 mg/dL (0.55-1.02); POTASSIUM 4.1 mmol/L (3.5-5.1); SODIUM 136 mmol/L (136-145)
[2016-11-21 12:50] VITALS: BP 130/56
[2016-11-21 16:00] VITALS: BP 121/70
[2016-11-21 18:23] LABS: BUN 10 mg/dl (7-24); CHLORIDE 107 mmol/L (98-107); CREATININE 0.74 mg/dL (0.55-1.02); POTASSIUM 3.8 mmol/L (3.5-5.1); SODIUM 139 mmol/L (136-145)
[2016-11-21 20:00] VITALS: BP 128/67
--- NOTE | 2016-11-21 20:26 | NUR ---
PT. RESTING IN BED. HEP LOCK IN LA ASYMPT. LUNGS CLEAR BILAT, PULSE OX 97% ON RA. ABDOMEN SOFT, NONDISTENDED AND NORMO. NO PERIPHERAL EDEMA NOTED. RESP. EASY AND REG NO DISTRESS. NICHOLAS WILKINS RN
--- NOTE | 2016-11-21 21:38 | NUR ---
MEDICATED WITH PO IMETREX ORDERED PER PT REQUEST FOR C/O HEADACHE.
--- NOTE | 2016-11-21 21:55 | NUR ---
PT. TRANSFERRED TO [facility], VS STABLE, ALL BELONGINGS WITH PATIENT. NO COMPLAINTS VOICED. REPORT GIVEN TO DOREEN WILKINS RN
--- NOTE | 2016-11-21 22:03 | NUR ---
PATIENT RESTING IN BED. ASSESSMENT COMPLETE. ORIENTED TO ROOM AND CALL LIGHT. NO NEEDS MADE AT THIS TIME. BED IN LOWEST AND LOCKED POSITION, CALL LIGHT IN REACH
--- NOTE | 2016-11-21 22:59 | NUR ---
24 HR chart check completed.
[2016-11-22] VITALS: BP 129/63
--- NOTE | 2016-11-22 01:52 | NUR ---
PATIENT RESTING IN BED WITH NO S/S OF DISTRESS. RESPS EASY AND REGULAR. BED IN LOWEST POSITION, CALL LIGHT IN REACH
[2016-11-22 08:00] VITALS: BP 127/71
[2016-11-22 12:00] VITALS: BP 107/74
[2016-11-22 16:00] VITALS: BP 112/55
--- NOTE | 2016-11-22 18:44 | NUR ---
[facility] Discharge instructions reviewed with patient/family. Patient receptive and verbalizes understanding. Follow-up care arranged. Written instructions given to patient/family. DONOVAN MCKENZIE
== END 2016-11-22 18:44 | disposition home or self-care (01) | DRG 638 ==
LOC: ED 18:08 → 4E 20:10 → ICCU 20:10 → EDHOLD 20:10 → ICCU 20:18 → 4E 11-21 21:50
PROVIDERS: Nurse Practitioner Family; ADMIT Internal Medicine
DX: E10.10 Type 1 diabetes mellitus with ketoacidosis without coma (principal); N39.0 Urinary tract infection, site not specified; E10.42 Type 1 diabetes mellitus with diabetic polyneuropathy; I10 Essential (primary) hypertension; K58.9 Irritable bowel syndrome, unspecified; Z91.14 Patient's other noncompliance with medication regimen; Z88.1 Allergy status to other antibiotic agents; Z88.8 Allergy status to other drugs, medicaments and biological substances; Z79.82 Long term (current) use of aspirin; Z79.4 Long term (current) use of insulin; Z79.899 Other long term (current) drug therapy; Z82.49 Family history of ischemic heart disease and other diseases of the circulatory system; Z83.6 Family history of other diseases of the respiratory system; Z83.3 Family history of diabetes mellitus; Z80.9 Family history of malignant neoplasm, unspecified

== ENCOUNTER → 2017-01-10 | Outpatient (CLI) | payer BC | END | disposition home or self-care (01) | LOC: MAMMO 12-27 17:40 | DX: Z12.31 Encounter for screening mammogram for malignant neoplasm of breast (principal) ==

== ENCOUNTER 2017-03-25 09:36 | Inpatient (IN) | payer BC ==
[~2017-03-25] VITALS: Ht 162.5 cm; Wt 90.1 kg
--- NOTE | ~2017-03-25 | WRIGHTHP ---
[place], [place] PATIENT HISTORY AND PHYSICAL EXAM NAME: SUELLEN ERWIN [facility] #: [id number] UNIT #: [id number] ROOM: [facility] DOCTOR: RENETTA PHOENIX MD BIRTHDATE: [birth year] DOS: 03/25/2017 HISTORY OF PRESENT ILLNESS: The patient has been admitted to hospital from the Emergency Department with history of severe pain in the abdomen with nausea and repeated vomiting since yesterday, progressively getting worse and weaker and she came to the Emergency Department where on investigation was found to be in diabetic ketoacidosis with severe dehydration with repeated vomiting and uncontrolled diabetes mellitus. The patient does not take very good care of her diabetes mellitus. She does not control her medication properly though she has been instructed again and again about it. PAST MEDICAL HISTORY: Acute abdominal pain, acute gastroenteritis, diabetic neuropathy, diabetic ketoacidosis, glucosuria, hypertension, hyperglycemia, syndrome, insulin-dependent diabetes mellitus, lymphopenia, sepsis, uncontrolled diabetes mellitus, ketones in urine and urinary tract infection. PAST SURGICAL HISTORY: Carpal tunnel syndrome, cholecystectomy, foot surgery and tubal ligation. PERSONAL HISTORY: She does not drink, does not smoke, does not do any drugs. ALLERGIES: TESSELON PERLS, DOXYCYCLINE, COMPAZINE, PERCOCET, KEFLEX, LEVAQUIN. MEDICATIONS: The patient is at present taking following medications: Imitrex 100 mg on p.r.n. basis for her migraine, insulin Humalog 75/25 mix 30 units 3 times daily, aspirin 81 mg daily, gabapentin 800 mg twice daily, Elavil 25 mg at bedtime, lisinopril 10 mg daily, melatonin 10 mg daily, cyclobenzaprine 10 mg p.r.n. FAMILY HISTORY: Her father of lymphoma and COPD. Mother at 66 of myocardial infarction. There is history of diabetes mellitus, hypertension, cancer and coronary heart disease in the family. PHYSICAL EXAMINATION: GENERAL: The patient seems to be dehydrated and in pain and feeling weak. VITAL SIGNS: Her blood pressure 150/66, pulse is 102, respirations 26, temperature 98.1. She seemed to be dehydrated. NECK: No neck rigidity. HEART: Somewhat tachycardic. No murmur. LUNGS: Clear. No creps or rhonchi. ABDOMEN: Not distended. Having definite tenderness in the epigastrium. Liver and spleen not enlarged. There is no other area of tenderness, no mass felt. EXTREMITIES: No edema of leg. CENTRAL NERVOUS SYSTEM: No neurological deficit observed. LABORATORY DATA: Her lactic acid level is 2, which is within normal limit. Protime is 10.3, which is normal. CBC showed white count 15,800, hemoglobin 15.3, hematocrit 46.2, 93% neutrophils, 3% lymphocytes. A rapid influenza test is negative. Ketones are positive at 1:16 dilution. Comprehensive metabolic profile showed glucose 440. Sodium 134, low; carbon dioxide 11, low; total [place], [place] PATIENT HISTORY AND PHYSICAL EXAM NAME: SUELLEN ERWIN UNIT #: [id number] ROOM: [facility] DOCTOR: RENETTA PHOENIX MD BIRTHDATE: [birth year] protein 8.5, low. Other values are normal. Troponin levels are normal. Arterial blood gases show pH is 7.11, pCO2 is 21, pO2 is 120, bicarbonate is 6.5 and O2 saturation 97.3 and chest x-ray is normal. DIAGNOSES: Acute diabetic ketoacidosis with dehydration with uncontrolled insulin-dependent diabetes mellitus with migraine, hypertension, hyperglycemia. PLAN OF TREATMENT: The patient will be admitted to the unit protocol of her ketoacidosis and control her diabetes mellitus. For details, please refer to order sheet. RENETTA PHOENIX MD CM:HISPHYS:PATIENT HISTORY AND PHYSICAL EXAMINATION 1236 1320 RENETTA PHOENIX MD 03/25/17 1318 interface
--- NOTE | ~2017-03-25 | PR ---
[place], [place] PROGRESS NOTE NAME: SUELLEN ERWIN [facility] #: [id number] UNIT #: [id number] ROOM: [facility] DOCTOR: RENETTA PHOENIX MD BIRTHDATE: [birth year] DOS: SUBJECTIVE: The patient has been admitted to the hospital with history of diabetic ketoacidosis, with insulin-dependent diabetes mellitus, with noncompliant behavior and severe vomiting and diarrhea and dehydration. The patient is feeling much better today. She is not vomiting. She is retaining diet fairly good and sitting comfortably in the bed without any distress and her tongue is not as much dry as yesterday. Her urine culture and sensitivity have negative bacteria. I started her on Cipro 500 mg twice daily. Her vitamin B12 and folic acid are normal. Her vitamin D is low. Comprehensive metabolic profile shows glucose 229, chloride is 109, carbon dioxide is 19, calcium 7.5, phosphorous 1.6. Other values are fairly normal. Lipid profile is normal. Her thyroid profile is normal. Hemoglobin A1c 13.3. I discussed with the patient that she has problem of not taking good care of her diabetes. I counseled her in detail how she can adjust her insulin at home and that she has to regulate her diet properly and not ____ 8 at any time. She has to eat the same amount of food in the breakfast, lunch and dinner. I explained to her all these things in detail to her. OBJECTIVE: VITAL SIGNS: Her blood pressure today is 128/68, pulse 56, respirations 20, temperature is 99.5. CHEST: Clear. HEART: Regular. ABDOMEN: Soft. RENETTA PHOENIX MD CM:PNTRANS 1100 140 RENETTA PHOENIX MD 03/26/17 1407 interface
[2017-03-25 10:22] VITALS: BP 170/96
[2017-03-25 10:38] LABS: HEMATOCRIT 46.2 % (37.0-47.0); HEMOGLOBIN 15.3 g/dl (12.0-16.0); MEAN CELL VOLUME 87.2 fl (81.0-99.0); MEAN CORPUSCULAR HGB 28.9 pg (27.0-31.0); MEAN CORPUSCULAR HGB CONC 33.1 g/dl (33.0-37.0); PLATELET COUNT AUTOMATED 343 10*3/uL (130-400); RED CELL DISTRI WIDTH 12.3 % (0-14.5); WHITE BLOOD COUNT 15.8 10*3/uL (4.8-10.8)
[2017-03-25 10:39] VITALS: BP 149/70
[2017-03-25 10:48] LABS: ACT PARTIAL THROMBO TIME 25.1 SECONDS (20.8-31.5)
[2017-03-25 10:55] LABS: BURR CELLS FEW; PLATELET SUFFICIENCY NORMAL (NORMAL); TOTAL CELLS COUNTED 100 #CELLS
[2017-03-25 10:59] LABS: ABG HCO3 6.5 mmol/l (22-26); ABG O2 SATURATION 97.3 % (95-97)
[2017-03-25 11:01] LABS: ALBUMIN 4.4 gm/dl (3.1-4.5); ALKALINE PHOSPHATASE 99 U/L (45-117); BUN 19 mg/dl (7-24); CHLORIDE 101 mmol/L (98-107); CREATININE 0.98 mg/dL (0.55-1.02); POTASSIUM 4.8 mmol/L (3.5-5.1); SGOT/AST 9 IU/L (3-35); SGPT/ALT 18 U/L (12-78); SODIUM 134 mmol/L (136-145); TOTAL PROTEIN 8.5 gm/dL (6.4-8.2)
[2017-03-25 11:03] LABS: ABG BASE EXCESS -22.4 mmol/L (-2.0-2.0); ARTERIAL BLOOD GAS PH 7.115 (7.35-7.45)
[2017-03-25 11:03] LABS: TROPONIN I < 0.015 ng/ml (<0.045)
[2017-03-25 11:05] VITALS: BP 150/66
[2017-03-25 12:00] VITALS: BP 144/67
[2017-03-25 12:59] LABS: BILIRUBIN NEGATIVE (NEGATIVE); BLOOD TRACE-LYSED (NEGATIVE); CLARITY CLEAR (CLEAR); COLOR YELLOW (YELLOW); GLUCOSE 2+ (NEGATIVE); KETONE 3+ (NEGATIVE); LEUKO ESTERASE NEGATIVE (NEGATIVE); NITRITE NEGATIVE (NEGATIVE); SPECIFIC GRAVITY >= 1.030 (1.005-1.030); UROBILINOGEN 0.2 E.U./dl (0.2-1.0)
[2017-03-25 13:07] LABS: BACTERIA TRACE
[2017-03-25 14:43] LABS: BUN 17 mg/dl (7-24); CHLORIDE 114 mmol/L (98-107); CREATININE 0.71 mg/dL (0.55-1.02); POTASSIUM 4.3 mmol/L (3.5-5.1); SODIUM 141 mmol/L (136-145)
[2017-03-25 16:00] VITALS: BP 126/67
[2017-03-25 18:48] LABS: BUN 13 mg/dl (7-24); CHLORIDE 110 mmol/L (98-107); CREATININE 0.74 mg/dL (0.55-1.02); SODIUM 138 mmol/L (136-145)
[2017-03-25 20:00] VITALS: BP 109/50
[2017-03-25 22:04] LABS: BUN 12 mg/dl (7-24); CHLORIDE 108 mmol/L (98-107); CREATININE 0.76 mg/dL (0.55-1.02); POTASSIUM 3.5 mmol/L (3.5-5.1); SODIUM 137 mmol/L (136-145)
[2017-03-26] VITALS: BP 120/59
[2017-03-26 04:00] VITALS: BP 114/65
[2017-03-26 05:23] LABS: BASO % 0.2 % (0.0-1.0); HEMATOCRIT 36.5 % (37.0-47.0); HEMOGLOBIN 12.5 g/dl (12.0-16.0); LYMPH # 1.5 10*3/uL (1.3-4.4); LYMPH % 12.7 % (27.0-41.0); MEAN CELL VOLUME 84.3 fl (81.0-99.0); MEAN CORPUSCULAR HGB 28.9 pg (27.0-31.0); MEAN CORPUSCULAR HGB CONC 34.2 g/dl (33.0-37.0); MEAN PLATELET VOLUME 10.7 fl (9.6-12.3); MONO # 0.7 10*3/uL (0.1-1.0); MONO % 6.5 % (3.0-9.0); NEUT # 9.2 10*3/uL (2.3-7.9); NEUT % 80.1 % (47.0-73.0); PLATELET COUNT AUTOMATED 264 10*3/uL (130-400); RED BLOOD COUNT 4.33 10*6/uL (4.10-5.10); RED CELL DISTRI WIDTH 12.6 % (0-14.5); WHITE BLOOD COUNT 11.5 10*3/uL (4.8-10.8)
[2017-03-26 05:28] LABS: ACT PARTIAL THROMBO TIME 22.1 SECONDS (20.8-31.5)
[2017-03-26 05:45] LABS: ALBUMIN 3.1 gm/dl (3.1-4.5); ALKALINE PHOSPHATASE 66 U/L (45-117); BUN 11 mg/dl (7-24); CHLORIDE 109 mmol/L (98-107); CHOLESTEROL 134 mg/dL (<200); CREATININE 0.67 mg/dL (0.55-1.02); HDL CHOLESTEROL 46 mg/dl (40-60); LDL CHOLESTEROL 76 mg/dL (9-159); PHOSPHOROUS 1.6 mg/dL (2.5-4.9); POTASSIUM 3.5 mmol/L (3.5-5.1); SGOT/AST 8 IU/L (3-35); SGPT/ALT 14 U/L (12-78); SODIUM 141 mmol/L (136-145); TRIGLYCERIDES 62 mg/dl (<150); VLDL CHOLESTEROL 12 mg/dL (6-40)
[2017-03-26 05:46] LABS: FREE T4 1.14 ng/dl (0.76-1.46)
[2017-03-26 05:51] LABS: THYROID STIM HORMONE (HS) 0.558 uIU/ml (0.358-4.75)
[2017-03-26 08:00] VITALS: BP 128/68
[2017-03-26 08:41] LABS: VITAMIN D, 25-HYDROXY 15.2 ng/mL (30-100)
[2017-03-26 12:00] VITALS: BP 123/57
[2017-03-26 16:00] VITALS: BP 129/60
[2017-03-26 20:00] VITALS: BP 145/77
[2017-03-27] VITALS: BP 116/66
[2017-03-27 04:00] VITALS: BP 116/74
[2017-03-27 04:27] LABS: BASO % 0.3 % (0.0-1.0); EOS % 0.2 % (1.0-4.0); HEMATOCRIT 33.8 % (37.0-47.0); HEMOGLOBIN 11.8 g/dl (12.0-16.0); LYMPH # 1.7 10*3/uL (1.3-4.4); LYMPH % 29.1 % (27.0-41.0); MEAN CELL VOLUME 83.5 fl (81.0-99.0); MEAN CORPUSCULAR HGB 29.1 pg (27.0-31.0); MEAN CORPUSCULAR HGB CONC 34.9 g/dl (33.0-37.0); MONO # 0.7 10*3/uL (0.1-1.0); MONO % 11.1 % (3.0-9.0); NEUT # 3.5 10*3/uL (2.3-7.9); NEUT % 58.8 % (47.0-73.0); PLATELET COUNT AUTOMATED 218 10*3/uL (130-400); RED BLOOD COUNT 4.05 10*6/uL (4.10-5.10); RED CELL DISTRI WIDTH 12.6 % (0-14.5)
[2017-03-27 04:45] LABS: BUN 11 mg/dl (7-24); CHLORIDE 112 mmol/L (98-107); SODIUM 146 mmol/L (136-145)
[2017-03-27 08:00] VITALS: BP 138/78
[2017-03-27 12:00] VITALS: BP 138/77
[2017-03-27] MEDS ORDERED: VITAMIN D5000 UNI1 PO (12:43)
[2017-03-27] MEDS ORDERED: CIPROFLOXACIN500 M4 PO (13:13)
== END 2017-03-27 14:09 | disposition home or self-care (01) | DRG 871 ==
LOC: ED 09:36 → EDHOLD 11:22 → ICCU 11:22
PROVIDERS: Emergency Medicine; Hospitalist
DX: A41.51 Sepsis due to Escherichia coli [E. coli] (principal); E11.10 Type 2 diabetes mellitus with ketoacidosis without coma; E11.42 Type 2 diabetes mellitus with diabetic polyneuropathy; E83.39 Other disorders of phosphorus metabolism; N30.01 Acute cystitis with hematuria; E86.0 Dehydration; I10 Essential (primary) hypertension; K58.9 Irritable bowel syndrome, unspecified; E66.9 Obesity, unspecified; E87.6 Hypokalemia; G43.909 Migraine, unspecified, not intractable, without status migrainosus; F51.01 Primary insomnia; D64.9 Anemia, unspecified; E11.65 Type 2 diabetes mellitus with hyperglycemia; Z88.1 Allergy status to other antibiotic agents; Z88.6 Allergy status to analgesic agent; Z79.4 Long term (current) use of insulin; Z88.8 Allergy status to other drugs, medicaments and biological substances; Z90.49 Acquired absence of other specified parts of digestive tract; Z98.51 Tubal ligation status; Z82.5 Family history of asthma and other chronic lower respiratory diseases; Z82.49 Family history of ischemic heart disease and other diseases of the circulatory system; Z68.34 Body mass index [BMI] 34.0-34.9, adult

== ENCOUNTER → 2017-04-18 | Outpatient (CLI) | payer BC ==
[~2017-04-18] MED LIST changes: +CIPROFLOXACIN500 M4 PO; +VITAMIN D5000 UNI1 PO
== END | disposition home or self-care (01) ==
LOC: RAD 16:11
DX: M65.4 Radial styloid tenosynovitis [de Quervain] (principal); M25.531 Pain in right wrist

== ENCOUNTER → 2017-07-14 | Outpatient (CLI) | payer BC | END | disposition home or self-care (01) | LOC: RAD 16:26 | DX: J18.9 Pneumonia, unspecified organism (principal) ==

== ENCOUNTER 2017-11-04 20:06 | Emergency (ER) | payer BC ==
[~2017-11-04] VITALS: Ht 162.5 cm; Wt 99.8 kg
[2017-11-04 21:17] LABS: BILIRUBIN NEGATIVE (NEGATIVE); BLOOD NEGATIVE (NEGATIVE); CLARITY CLEAR (CLEAR); COLOR YELLOW (YELLOW); GLUCOSE 3+ (NEGATIVE); KETONE NEGATIVE (NEGATIVE); LEUKO ESTERASE NEGATIVE (NEGATIVE); NITRITE NEGATIVE (NEGATIVE); SPECIFIC GRAVITY <= 1.005 (1.005-1.030); UROBILINOGEN 0.2 E.U./dl (0.2-1.0)
[2017-11-04 21:19] LABS: BASO % 0.4 % (0.0-1.0); EOS % 0.2 % (1.0-4.0); HEMATOCRIT 37.2 % (37.0-47.0); HEMOGLOBIN 12.4 g/dl (12.0-16.0); LYMPH # 1.5 10*3/uL (1.3-4.4); LYMPH % 26.4 % (27.0-41.0); MEAN CELL VOLUME 88.2 fl (81.0-99.0); MEAN CORPUSCULAR HGB 29.4 pg (27.0-31.0); MEAN CORPUSCULAR HGB CONC 33.3 g/dl (33.0-37.0); MEAN PLATELET VOLUME 10.1 fl (9.6-12.3); MONO # 0.4 10*3/uL (0.1-1.0); MONO % 7.4 % (3.0-9.0); NEUT # 3.7 10*3/uL (2.3-7.9); NEUT % 65.2 % (47.0-73.0); PLATELET COUNT AUTOMATED 217 10*3/uL (130-400); RED BLOOD COUNT 4.22 10*6/uL (4.10-5.10); RED CELL DISTRI WIDTH 12.3 % (0-14.5); WHITE BLOOD COUNT 5.7 10*3/uL (4.8-10.8)
[2017-11-04 21:34] LABS: ALBUMIN 3.3 gm/dl (3.1-4.5); ALKALINE PHOSPHATASE 71 U/L (45-117); BUN 18 mg/dl (7-24); CHLORIDE 103 mmol/L (98-107); CREATININE 0.74 mg/dL (0.55-1.02); SGOT/AST 9 IU/L (3-35); SGPT/ALT 18 U/L (12-78); SODIUM 138 mmol/L (136-145); TOTAL PROTEIN 6.7 gm/dL (6.4-8.2)
== END 2017-11-05 01:27 | disposition home or self-care (01) ==
LOC: ED 20:06
PROVIDERS: Emergency Medicine
DX: E11.65 Type 2 diabetes mellitus with hyperglycemia (principal); E11.10 Type 2 diabetes mellitus with ketoacidosis without coma; I10 Essential (primary) hypertension; K58.9 Irritable bowel syndrome, unspecified; G43.909 Migraine, unspecified, not intractable, without status migrainosus; F51.01 Primary insomnia; Z90.49 Acquired absence of other specified parts of digestive tract; Z98.51 Tubal ligation status; Z79.4 Long term (current) use of insulin; Z79.82 Long term (current) use of aspirin; Z79.899 Other long term (current) drug therapy; Z88.5 Allergy status to narcotic agent; Z88.8 Allergy status to other drugs, medicaments and biological substances; Z88.1 Allergy status to other antibiotic agents

== ENCOUNTER → 2017-12-12 | Outpatient (CLI) | payer BC | END | disposition home or self-care (01) | LOC: RAD 14:19 | DX: J18.9 Pneumonia, unspecified organism (principal); I10 Essential (primary) hypertension; E11.9 Type 2 diabetes mellitus without complications ==

== ENCOUNTER 2018-04-22 13:29 | Emergency (ER) | payer BC ==
[~2018-04-22] VITALS: Ht 162.5 cm; Wt 104.3 kg
--- NOTE | ~2018-04-22 | EKG ---
[place], [place] ELECTROCARDIOGRAM REPORT NAME: SUELLEN ERWIN UNIT #: [id number] ROOM: DOCTOR: EPIPHANY DRAFT REPORT BIRTHDATE: [birth year] [facility] Test Date: 2018-04-22 Test Time: 14:06:53 Pat Name: SUELLEN ERWIN Department: ER Room: Gender: F Collections Analyst: : 1965 Requested By: SHLOMO KRUEGER DNP Order Number: [id number] Reading MD: Leslye Forrest MD Measurements Intervals [place] Rate: 88 P: 32 SC: 159 QRS: 116 QRSD: 94 T: 14 QT: 414 QTc: 501 Interpretive Statements Sinus rhythm Right axis deviation Nonspecific T abnrm, anterolateral leads Borderline prolonged QT interval Electronically Signed On 04-23-2018 14:06:19 PDT by Leslye Forrest MD CM:EKGRPT:ELECTROCARDIOGRAM REPORT 1406 1406 SHLOMO KRUEGER DNP EPIPHANY DRAFT REPORT SHLOMO KRUEGER DNP
[2018-04-22 14:14] LABS: BASO % 0.6 % (0.0-1.0); HEMATOCRIT 38.2 % (37.0-47.0); HEMOGLOBIN 12.8 g/dl (12.0-16.0); LYMPH # 0.4 10*3/uL (1.3-4.4); LYMPH % 8.2 % (27.0-41.0); MEAN CELL VOLUME 89.9 fl (81.0-99.0); MEAN CORPUSCULAR HGB 30.1 pg (27.0-31.0); MEAN CORPUSCULAR HGB CONC 33.5 g/dl (33.0-37.0); MEAN PLATELET VOLUME 10.1 fl (9.6-12.3); MONO # 0.6 10*3/uL (0.1-1.0); MONO % 10.8 % (3.0-9.0); NEUT # 4.1 10*3/uL (2.3-7.9); PLATELET COUNT AUTOMATED 202 10*3/uL (130-400); RED BLOOD COUNT 4.25 10*6/uL (4.10-5.10); RED CELL DISTRI WIDTH 12.2 % (0-14.5); WHITE BLOOD COUNT 5.1 10*3/uL (4.8-10.8)
[2018-04-22 14:29] LABS: ACT PARTIAL THROMBO TIME 25.3 SECONDS (20.8-31.5)
[2018-04-22 14:35] LABS: ALBUMIN 3.2 gm/dl (3.1-4.5); ALKALINE PHOSPHATASE 72 U/L (45-117); BUN 11 mg/dl (7-24); CHLORIDE 106 mmol/L (98-107); CREATININE 0.66 mg/dL (0.55-1.02); POTASSIUM 3.7 mmol/L (3.5-5.1); SGOT/AST 11 IU/L (3-35); SGPT/ALT 15 U/L (12-78); SODIUM 138 mmol/L (136-145); TOTAL PROTEIN 6.7 gm/dL (6.4-8.2)
[2018-04-22 14:36] LABS: TROPONIN I < 0.015 ng/ml (<0.045)
[2018-04-22] MEDS ORDERED: GOOD NEIGHBOR M25 M1 PO (16:03)
[2018-04-22] MEDS ORDERED: ZOFRAN4 MG PO (16:03)
[2018-07-10] MEDS ORDERED: AMITRIPTYLINE50 MG PO (01:14)
[2018-07-10] MEDS ORDERED: NEURONTIN600 MG PO (01:16)
[2018-07-10] MEDS ORDERED: MELATONIN10 M5 SL (01:19)
[2018-07-10] MEDS ORDERED: MELATONIN10 M4 PO (01:20)
[2018-07-10] MEDS ORDERED: HUMALOG 751 UNIT/0.0 SC (01:22)
[2018-07-10] MEDS ORDERED: CALCIUM 600 +1 EAC4 PO (01:23)
[2018-07-10] MEDS ORDERED: ONE DAILY FOR1 EACH PO (01:24)
[2018-07-11] MEDS ORDERED: ZOLOFT25 MG PO (12:02)
[2018-07-11] MEDS ORDERED: HUMALOG 751 UNIT/0.0 SC (12:02)
[2018-07-13] MEDS ORDERED: OZEMPIC0.25 MG/01 SQ (13:46)
[2018-07-13] MEDS ORDERED: ZANTAC 150150 MG PO (13:48)
[2018-07-17] MEDS ORDERED: IBUPROFEN600 MG PO (08:35)
== END 2018-04-22 16:09 | disposition home or self-care (01) ==
LOC: ED 13:29
PROVIDERS: Nurse Practitioner Family
DX: B34.9 Viral infection, unspecified (principal); R42 Dizziness and giddiness; R79.1 Abnormal coagulation profile; E11.9 Type 2 diabetes mellitus without complications; Z88.1 Allergy status to other antibiotic agents; Z88.8 Allergy status to other drugs, medicaments and biological substances; Z79.899 Other long term (current) drug therapy; Z79.82 Long term (current) use of aspirin; Z88.6 Allergy status to analgesic agent; Z79.4 Long term (current) use of insulin

== ENCOUNTER → 2018-06-18 | Outpatient (CLI) | payer OTHER ==
[~2018-06-18] MED LIST changes: +CALCIUM 600 +1 EAC4 PO; +GOOD NEIGHBOR M25 M1 PO; +IBUPROFEN600 MG PO; +MELATONIN10 M5 SL; +ONE DAILY FOR1 EACH PO; +OZEMPIC0.25 MG/01 SQ; +ZANTAC 150150 MG PO; +ZOLOFT25 MG PO
== END | disposition home or self-care (01) ==
LOC: RAD 17:24
DX: S33.5XXA Sprain of ligaments of lumbar spine, initial encounter (principal); X58.XXXA Exposure to other specified factors, initial encounter; Y93.89 Activity, other specified; Y92.89 Other specified places as the place of occurrence of the external cause; Y99.8 Other external cause status

== ENCOUNTER 2019-02-20 07:53 | Emergency (ER) | payer OTHER ==
[~2019-02-20] VITALS: Ht 162.5 cm; Wt 99.8 kg
[2019-02-20 08:47] LABS: HEMATOCRIT 43.4 % (37.0-47.0); HEMOGLOBIN 14.1 g/dl (12.0-16.0); MEAN CELL VOLUME 90.4 fl (81.0-99.0); MEAN CORPUSCULAR HGB 29.4 pg (27.0-31.0); MEAN CORPUSCULAR HGB CONC 32.5 g/dl (33.0-37.0); MEAN PLATELET VOLUME 10.2 fl (9.6-12.3); PLATELET COUNT AUTOMATED 243 10*3/uL (130-400); RED CELL DISTRI WIDTH 12.2 % (0-14.5); WHITE BLOOD COUNT 9.2 10*3/uL (4.8-10.8)
[2019-02-20 09:02] LABS: ALBUMIN 3.5 gm/dl (3.1-4.5); ALKALINE PHOSPHATASE 72 U/L (45-117); BUN 17 mg/dl (7-24); CHLORIDE 108 mmol/L (98-107); CREATININE 0.79 mg/dL (0.55-1.02); POTASSIUM 4.5 mmol/L (3.5-5.1); SGOT/AST 11 IU/L (3-35); SGPT/ALT 18 U/L (12-78); SODIUM 140 mmol/L (136-145); TOTAL PROTEIN 6.8 gm/dL (6.4-8.2)
[2019-02-20 09:23] LABS: TOTAL CELLS COUNTED 100 #CELLS
[2019-02-20 09:24] LABS: PLATELET SUFFICIENCY NORMAL (NORMAL)
[2019-02-20] MEDS ORDERED: TAMIFLU 75MG CA75 MG PO (09:45)
== END 2019-02-20 09:46 | disposition home or self-care (01) ==
LOC: ED 07:53
PROVIDERS: Emergency Medicine
DX: Z20.828 Contact with and (suspected) exposure to other viral communicable diseases (principal); R11.2 Nausea with vomiting, unspecified; R19.7 Diarrhea, unspecified; I10 Essential (primary) hypertension; E78.00 Pure hypercholesterolemia, unspecified; E11.43 Type 2 diabetes mellitus with diabetic autonomic (poly)neuropathy; G43.909 Migraine, unspecified, not intractable, without status migrainosus; E66.9 Obesity, unspecified; Z88.8 Allergy status to other drugs, medicaments and biological substances; Z88.1 Allergy status to other antibiotic agents; Z88.6 Allergy status to analgesic agent; Z79.899 Other long term (current) drug therapy; Z79.82 Long term (current) use of aspirin; Z68.34 Body mass index [BMI] 34.0-34.9, adult

== ENCOUNTER → 2019-05-15 | Outpatient (CLI) | payer OTHER ==
[~2019-05-15] MED LIST changes: +TAMIFLU 75MG CA75 MG PO
== END | disposition home or self-care (01) ==
LOC: RAD 16:53
DX: M25.562 Pain in left knee (principal)

== ENCOUNTER → 2019-07-17 | Outpatient (CLI) | payer OTHER | LOC: MRI 07-10 15:00 | DX: M94.262 Chondromalacia, left knee (principal); M25.562 Pain in left knee; R07.9 Chest pain, unspecified; R05 Cough ==

== ENCOUNTER → 2019-08-15 | Outpatient (CLI) | payer OTHER ==
[2019-08-15 19:09] LABS: BASO % 0.5 % (0.0-1.0); HEMATOCRIT 42.7 % (37.0-47.0); LYMPH # 1.8 10*3/uL (1.3-4.4); LYMPH % 25.3 % (27.0-41.0); MEAN CELL VOLUME 87.1 fl (81.0-99.0); MEAN CORPUSCULAR HGB 28.6 pg (27.0-31.0); MEAN CORPUSCULAR HGB CONC 32.8 g/dl (33.0-37.0); MEAN PLATELET VOLUME 11.8 fl (9.6-12.3); MONO # 0.5 10*3/uL (0.1-1.0); MONO % 6.7 % (3.0-9.0); NEUT # 4.9 10*3/uL (2.3-7.9); NEUT % 67.1 % (47.0-73.0); PLATELET COUNT AUTOMATED 285 10*3/uL (130-400); RED CELL DISTRI WIDTH 12.9 % (0-14.5); WHITE BLOOD COUNT 7.3 10*3/uL (4.8-10.8)
[2019-08-15 19:34] LABS: BACTERIA 1+; BILIRUBIN NEGATIVE (NEGATIVE); BLOOD NEGATIVE (NEGATIVE); CLARITY CLEAR (CLEAR); COLOR YELLOW (YELLOW); EPITHELIAL CELLS 16-20; GLUCOSE 2+ (NEGATIVE); KETONE NEGATIVE (NEGATIVE); LEUKO ESTERASE TRACE (NEGATIVE); NITRITE NEGATIVE (NEGATIVE); SPECIFIC GRAVITY 1.015 (1.005-1.030); UROBILINOGEN 0.2 E.U./dl (0.2-1.0); WBC 21-30 wbc/hpf (0-5); YEAST 1+
[2019-08-15 19:39] LABS: ALBUMIN 3.4 gm/dl (3.1-4.5); ALKALINE PHOSPHATASE 73 U/L (45-117); BUN 19 mg/dl (7-24); CHLORIDE 103 mmol/L (98-107); CREATININE 0.86 mg/dL (0.55-1.02); FREE T4 1.02 ng/dl (0.76-1.46); POTASSIUM 3.9 mmol/L (3.5-5.1); SGOT/AST 11 IU/L (3-35); SGPT/ALT 15 U/L (12-78); SODIUM 134 mmol/L (136-145); TOTAL PROTEIN 6.9 gm/dL (6.4-8.2)
== END | disposition home or self-care (01) ==
LOC: LAB 15:24
PROVIDERS: Internal Medicine
DX: R53.83 Other fatigue (principal)

== ENCOUNTER → 2019-10-26 | Outpatient (CLI) | payer OTHER ==
[2019-10-26 11:37] LABS: BILIRUBIN NEGATIVE; BUN 15 mg/dl (7-24); CHLORIDE 104 mmol/L (98-107); CLARITY CLEAR (CLEAR); COLOR YELLOW (YELLOW); CREATININE 0.74 mg/dL (0.55-1.02); GLUCOSE 3+; KETONE 2+; POTASSIUM 4.5 mmol/L (3.5-5.1); SODIUM 139 mmol/L (136-145)
[2019-10-26 11:38] LABS: BLOOD NEGATIVE (NEGATIVE); LEUKO ESTERASE NEGATIVE (NEGATIVE); NITRITE NEGATIVE (NEGATIVE); SPECIFIC GRAVITY >= 1.030 (1.001-1.030); UROBILINOGEN 0.2 E.U./dl (0.0-1.0)
== END | disposition home or self-care (01) ==
LOC: LAB 10:37
PROVIDERS: ATTEND Internal Medicine
DX: E11.65 Type 2 diabetes mellitus with hyperglycemia (principal); R30.0 Dysuria

== ENCOUNTER 2019-11-21 12:09 | Inpatient (IN) | payer OTHER ==
[~2019-11-21] VITALS: Ht 162.6 cm; Wt 97.2 kg
[2019-11-21 12:35] VITALS: BP 135/68
[2019-11-21 14:13] LABS: BASO # 0.1 10*3/uL (0.0-0.1); BASO % 0.4 % (0.0-1.0); HEMATOCRIT 44.6 % (37.0-47.0); LYMPH # 0.9 10*3/uL (1.3-4.4); LYMPH % 7.7 % (27.0-41.0); MEAN CELL VOLUME 90.3 fl (81.0-99.0); MEAN CORPUSCULAR HGB 28.5 pg (27.0-31.0); MEAN CORPUSCULAR HGB CONC 31.6 g/dl (33.0-37.0); MEAN PLATELET VOLUME 10.8 fl (9.6-12.3); MONO # 0.3 10*3/uL (0.1-1.0); MONO % 2.1 % (3.0-9.0); NEUT # 10.8 10*3/uL (2.3-7.9); NEUT % 88.9 % (47.0-73.0); PLATELET COUNT AUTOMATED 327 10*3/uL (130-400); RED BLOOD COUNT 4.94 10*6/uL (4.10-5.10); RED CELL DISTRI WIDTH 12.1 % (0-14.5); WHITE BLOOD COUNT 12.1 10*3/uL (4.8-10.8)
[2019-11-21 14:33] LABS: ALKALINE PHOSPHATASE 99 U/L (45-117); BUN 23 mg/dl (7-24); CHLORIDE 100 mmol/L (98-107); CREATININE 1.07 mg/dL (0.55-1.02); LIPASE 37 U/L (73-393); POTASSIUM 4.5 mmol/L (3.5-5.1); SGOT/AST 9 IU/L (3-35); SGPT/ALT 15 U/L (12-78); SODIUM 133 mmol/L (136-145); TOTAL PROTEIN 8.3 gm/dL (6.4-8.2)
[2019-11-21 14:35] LABS: TROPONIN I < 0.015 ng/ml (<0.045)
[2019-11-21 14:37] LABS: ACT PARTIAL THROMBO TIME 23.7 SECONDS (20.0-32.1); INTERNATIONAL NORM RATIO 0.9 (2.0-3.5)
[2019-11-21 16:17] LABS: BILIRUBIN Negative (Negative); BLOOD Negative (Negative); CLARITY Clear (Clear); COLOR Yellow (Yellow); GLUCOSE 3+ (Negative); KETONE 4+ (Negative); LEUKO ESTERASE Negative (Negative); NITRITE Negative (Negative); SPECIFIC GRAVITY 1.025 (1.001-1.030); UROBILINOGEN 0.2 E.U./dl (0.0-1.0)
[2019-11-21 16:45] LABS: ABG BASE EXCESS -7.7 mmol/L (-2.0-2.0); ARTERIAL BLOOD GAS PH 7.347 (7.35-7.45)
[2019-11-21 16:51] LABS: BACTERIA TRACE; EPITHELIAL CELLS 0-2; WBC 0-2 wbc/hpf (0-5)
[2019-11-21 17:30] VITALS: BP 98/52
[2019-11-21 18:19] LABS: BUN 19 mg/dl (7-24); CHLORIDE 109 mmol/L (98-107); CREATININE 0.85 mg/dL (0.55-1.02); SODIUM 139 mmol/L (136-145)
[2019-11-21] MEDS ORDERED: PANTOPRAZOLE SO40 MG PO (19:28)
[2019-11-21 20:00] VITALS: BP 123/47
[2019-11-21 22:37] LABS: BUN 19 mg/dl (7-24); CHLORIDE 106 mmol/L (98-107); CREATININE 0.81 mg/dL (0.55-1.02); POTASSIUM 4.1 mmol/L (3.5-5.1); SODIUM 138 mmol/L (136-145)
[2019-11-22] VITALS: BP 121/48
[2019-11-22 03:10] LABS: BUN 18 mg/dl (7-24); CHLORIDE 106 mmol/L (98-107); POTASSIUM 3.8 mmol/L (3.5-5.1); SODIUM 138 mmol/L (136-145)
[2019-11-22 04:00] VITALS: BP 143/82
[2019-11-22 06:20] LABS: BASO # 0.1 10*3/uL (0.0-0.1); BASO % 0.6 % (0.0-1.0); EOS # 0.2 10*3/uL (0.0-0.4); EOS % 2.6 % (1.0-4.0); HEMATOCRIT 39.7 % (37.0-47.0); LYMPH # 1.5 10*3/uL (1.3-4.4); LYMPH % 17.2 % (27.0-41.0); MEAN CELL VOLUME 88.4 fl (81.0-99.0); MEAN CORPUSCULAR HGB 28.5 pg (27.0-31.0); MEAN CORPUSCULAR HGB CONC 32.2 g/dl (33.0-37.0); MEAN PLATELET VOLUME 10.8 fl (9.6-12.3); MONO # 0.6 10*3/uL (0.1-1.0); MONO % 7.2 % (3.0-9.0); NEUT # 6.3 10*3/uL (2.3-7.9); NEUT % 71.8 % (47.0-73.0); PLATELET COUNT AUTOMATED 251 10*3/uL (130-400); RED BLOOD COUNT 4.49 10*6/uL (4.10-5.10); RED CELL DISTRI WIDTH 12.4 % (0-14.5); WHITE BLOOD COUNT 8.8 10*3/uL (4.8-10.8)
[2019-11-22 06:36] LABS: CHLORIDE 107 mmol/L (98-107); POTASSIUM 3.6 mmol/L (3.5-5.1); SODIUM 137 mmol/L (136-145)
[2019-11-22 06:47] LABS: ALKALINE PHOSPHATASE 72 U/L (45-117); BUN 17 mg/dl (7-24); CREATININE 0.89 mg/dL (0.55-1.02); SGOT/AST 9 IU/L (3-35); SGPT/ALT 12 U/L (12-78); TOTAL PROTEIN 6.3 gm/dL (6.4-8.2)
[2019-11-22 08:00] VITALS: BP 119/67
[2019-11-22 10:23] LABS: BUN 18 mg/dl (7-24); CHLORIDE 107 mmol/L (98-107); CREATININE 0.85 mg/dL (0.55-1.02); POTASSIUM 3.8 mmol/L (3.5-5.1); SODIUM 138 mmol/L (136-145)
[2019-11-22 12:00] VITALS: BP 106/51
[2019-11-22 16:00] VITALS: BP 109/62
[2019-11-22 20:00] VITALS: BP 125/65
[2019-11-23] VITALS: BP 96/42
[2019-11-23 12:00] VITALS: BP 134/61
[2019-11-23] MEDS ORDERED: INSULIN LI100 UNIT/3 SC (12:14)
[2019-11-23] MEDS ORDERED: HUMALOG 751 UNIT/0.0 SC (12:16)
[2019-11-23] MEDS ORDERED: LIPITOR40 MG PO (12:18)
== END 2019-11-23 15:30 | disposition home or self-care (01) | DRG 637 ==
LOC: ED 12:09 → EDHOLD 15:07 → 5E 15:07 → ICCU 15:07 → 5E 11-22 15:10
PROVIDERS: Internal Medicine; Nurse Practitioner Family; Student in an Organized Health Care Education/Training Program; ADMIT Internal Medicine; ATTEND Internal Medicine
DX: E11.10 Type 2 diabetes mellitus with ketoacidosis without coma (principal); N17.0 Acute kidney failure with tubular necrosis; E87.1 Hypo-osmolality and hyponatremia; K58.9 Irritable bowel syndrome, unspecified; E11.40 Type 2 diabetes mellitus with diabetic neuropathy, unspecified; I10 Essential (primary) hypertension; T14.8XXA Other injury of unspecified body region, initial encounter; F51.01 Primary insomnia; E83.41 Hypermagnesemia; E66.9 Obesity, unspecified; Z79.4 Long term (current) use of insulin; Z90.49 Acquired absence of other specified parts of digestive tract; Z82.49 Family history of ischemic heart disease and other diseases of the circulatory system; Z88.1 Allergy status to other antibiotic agents; Z88.8 Allergy status to other drugs, medicaments and biological substances; Z79.82 Long term (current) use of aspirin; Z79.899 Other long term (current) drug therapy; Y93.89 Activity, other specified; Y92.89 Other specified places as the place of occurrence of the external cause; Y99.8 Other external cause status; Z68.36 Body mass index [BMI] 36.0-36.9, adult

== ENCOUNTER → 2020-04-05 | Outpatient (CLI) | payer OTHER ==
[~2020-04-05] MED LIST changes: +B121000 MCG/1 IM; +D3-200050 MCG PO; +DEBROX15 ML OT; +DITROPAN XL10 MG PO; +GABAPENTIN600 MG PO; +HUMALOG100 UNIT/2 SQ; +INSULIN LI100 UNIT/3 SC; +LIPITOR40 MG PO; +MEDI-MECLIZINE25 MG PO; +PANTOPRAZOLE SO40 MG PO; +ZOLOFT100 MG PO
[2020-04-05 13:04] LABS: ALBUMIN 3.4 gm/dl (3.1-4.5); BUN 19 mg/dl (7-24); CHLORIDE 107 mmol/L (98-107); CHOLESTEROL 136 mg/dL (<200); CREATININE 0.66 mg/dL (0.55-1.02); HDL CHOLESTEROL 61 mg/dl (40-60); LDL CHOLESTEROL 66 mg/dL (9-159); POTASSIUM 3.7 mmol/L (3.5-5.1); SGOT/AST 9 IU/L (3-35); SGPT/ALT 21 U/L (12-78); SODIUM 140 mmol/L (136-145); TOTAL PROTEIN 6.9 gm/dL (6.4-8.2); VLDL CHOLESTEROL 9 mg/dL (6-40)
[2020-04-05 13:10] LABS: ALKALINE PHOSPHATASE 81 U/L (45-117); FREE T4 0.83 ng/dl (0.76-1.46)
[2020-04-07 13:07] LABS: CREATININE,URINE 62.9 mg/dL (Not Estab.)
== END | disposition home or self-care (01) ==
LOC: LAB 11:46
PROVIDERS: Nurse Practitioner; ATTEND Internal Medicine
DX: E10.8 Type 1 diabetes mellitus with unspecified complications (principal); E78.5 Hyperlipidemia, unspecified; E03.9 Hypothyroidism, unspecified

== ENCOUNTER 2020-06-08 05:21 | Observation (INO) | payer OTHER ==
[~2020-06-08] VITALS: Ht 162.6 cm; Wt 111.1 kg
[~2020-06-08 05:21] MED LIST changes: -B121000 MCG/1 IM; -D3-200050 MCG PO; -DEBROX15 ML OT; -DITROPAN XL10 MG PO; -GABAPENTIN600 MG PO; -HUMALOG100 UNIT/2 SQ; -MEDI-MECLIZINE25 MG PO; -ZOLOFT100 MG PO
[2020-06-08 05:41] VITALS: BP 131/68
[2020-06-08 07:04] LABS: BASO % 0.5 % (0.0-1.0); HEMATOCRIT 41.3 % (37.0-47.0); LYMPH # 0.9 10*3/uL (1.3-4.4); LYMPH % 16.2 % (27.0-41.0); MEAN CELL VOLUME 89.6 fl (81.0-99.0); MEAN CORPUSCULAR HGB 28.6 pg (27.0-31.0); MEAN PLATELET VOLUME 9.6 fl (9.6-12.3); MONO # 0.4 10*3/uL (0.1-1.0); MONO % 7.1 % (3.0-9.0); NEUT # 4.3 10*3/uL (2.3-7.9); NEUT % 75.8 % (47.0-73.0); PLATELET COUNT AUTOMATED 282 10*3/uL (130-400); RED BLOOD COUNT 4.61 10*6/uL (4.10-5.10); RED CELL DISTRI WIDTH 12.5 % (0-14.5); WHITE BLOOD COUNT 5.6 10*3/uL (4.8-10.8)
[2020-06-08 07:23] LABS: ALBUMIN 3.2 gm/dl (3.1-4.5); ALKALINE PHOSPHATASE 82 U/L (45-117); BUN 18 mg/dl (7-24); CHLORIDE 107 mmol/L (98-107); CREATININE 0.74 mg/dL (0.55-1.02); POTASSIUM 4.2 mmol/L (3.5-5.1); SGOT/AST 13 IU/L (3-35); SGPT/ALT 21 U/L (12-78); SODIUM 140 mmol/L (136-145); TOTAL PROTEIN 6.8 gm/dL (6.4-8.2)
[2020-06-08 07:29] LABS: TROPONIN I < 0.015 ng/ml (<0.045)
[2020-06-08 17:15] VITALS: BP 150/85
[2020-06-08] MEDS ORDERED: ZOLOFT100 MG PO (17:48)
[2020-06-08] MEDS ORDERED: LIPITOR40 MG PO (17:49)
[2020-06-08] MEDS ORDERED: PANTOPRAZOLE SO40 MG PO (17:50)
[2020-06-08] MEDS ORDERED: DITROPAN XL10 MG PO (17:52)
[2020-06-08] MEDS ORDERED: HUMALOG100 UNIT/2 SQ (19:23)
[2020-06-08 20:00] VITALS: BP 120/60
[2020-06-08] MEDS ORDERED: GABAPENTIN600 MG PO (20:42)
[2020-06-09] VITALS: BP 116/48
[2020-06-09 06:16] LABS: BASO % 0.6 % (0.0-1.0); HEMATOCRIT 41.8 % (37.0-47.0); LYMPH # 1.5 10*3/uL (1.3-4.4); LYMPH % 28.7 % (27.0-41.0); MEAN CELL VOLUME 91.9 fl (81.0-99.0); MEAN CORPUSCULAR HGB 28.8 pg (27.0-31.0); MEAN CORPUSCULAR HGB CONC 31.3 g/dl (33.0-37.0); MEAN PLATELET VOLUME 9.9 fl (9.6-12.3); MONO # 0.4 10*3/uL (0.1-1.0); MONO % 8.3 % (3.0-9.0); NEUT # 3.2 10*3/uL (2.3-7.9); NEUT % 61.8 % (47.0-73.0); PLATELET COUNT AUTOMATED 285 10*3/uL (130-400); RED BLOOD COUNT 4.55 10*6/uL (4.10-5.10); RED CELL DISTRI WIDTH 12.4 % (0-14.5); WHITE BLOOD COUNT 5.2 10*3/uL (4.8-10.8)
[2020-06-09 06:41] LABS: ALBUMIN 3.1 gm/dl (3.1-4.5); BUN 22 mg/dl (7-24); CHLORIDE 111 mmol/L (98-107); CREATININE 0.64 mg/dL (0.55-1.02); POTASSIUM 4.3 mmol/L (3.5-5.1); SGOT/AST 15 IU/L (3-35); SGPT/ALT 20 U/L (12-78); SODIUM 143 mmol/L (136-145); TOTAL PROTEIN 6.1 gm/dL (6.4-8.2)
[2020-06-09 06:51] LABS: ALKALINE PHOSPHATASE 71 U/L (45-117)
[2020-06-09 08:00] VITALS: BP 137/63
[2020-06-09 12:00] VITALS: BP 142/66
[2020-06-09 16:00] VITALS: BP 144/68
[2020-06-09] MEDS ORDERED: D3-200050 MCG PO (16:16)
[2020-06-09] MEDS ORDERED: MEDI-MECLIZINE25 MG PO ×2 (16:16→16:33)
[2020-06-09] MEDS ORDERED: DEBROX15 ML OT ×3 (16:23→16:25)
[2020-06-09] MEDS ORDERED: B121000 MCG/1 IM (16:33)
== END 2020-06-09 17:15 | disposition home or self-care (01) ==
LOC: ED 05:21 → EDHOLD 09:53 → 4E 16:50
PROVIDERS: Emergency Medicine; Student in an Organized Health Care Education/Training Program; ADMIT Internal Medicine; ATTEND Internal Medicine
DX: R42 Dizziness and giddiness (principal); Z20.822 Contact with and (suspected) exposure to COVID-19; I10 Essential (primary) hypertension; E66.9 Obesity, unspecified; K58.9 Irritable bowel syndrome, unspecified; E11.40 Type 2 diabetes mellitus with diabetic neuropathy, unspecified; E11.10 Type 2 diabetes mellitus with ketoacidosis without coma; G40.909 Epilepsy, unspecified, not intractable, without status epilepticus; G47.00 Insomnia, unspecified; E55.9 Vitamin D deficiency, unspecified; R26.81 Unsteadiness on feet; E11.65 Type 2 diabetes mellitus with hyperglycemia; E83.41 Hypermagnesemia; Z79.4 Long term (current) use of insulin; Z98.890 Other specified postprocedural states; Z90.49 Acquired absence of other specified parts of digestive tract

== ENCOUNTER → 2020-07-15 | Outpatient (CLI) | payer OTHER ==
[~2020-07-15] MED LIST changes: +B121000 MCG/1 IM; +D3-200050 MCG PO; +DEBROX15 ML OT; +DITROPAN XL10 MG PO; +GABAPENTIN600 MG PO; +HUMALOG100 UNIT/2 SQ; +MEDI-MECLIZINE25 MG PO; +ZOLOFT100 MG PO
[2020-07-15 20:40] LABS: ALBUMIN 3.5 gm/dl (3.1-4.5); ALKALINE PHOSPHATASE 89 U/L (45-117); BUN 21 mg/dl (7-24); CHLORIDE 106 mmol/L (98-107); CHOLESTEROL 146 mg/dL (<200); CREATININE 0.81 mg/dL (0.55-1.02); LDL CHOLESTEROL 70 mg/dL (9-159); SGOT/AST 12 IU/L (3-35); SGPT/ALT 20 U/L (12-78); SODIUM 139 mmol/L (136-145); TOTAL PROTEIN 6.9 gm/dL (6.4-8.2); TRIGLYCERIDES 119 mg/dl (<150)
[2020-07-15 20:41] LABS: FREE T4 0.81 ng/dl (0.76-1.46)
[2020-07-17 04:06] LABS: LDL CHOLESTEROL (DIRECT) 71 mg/dL (0-99)
== END | disposition home or self-care (01) ==
LOC: LAB 19:17
PROVIDERS: ATTEND Internal Medicine Endocrinology, Diabetes & Metabolism
DX: E10.8 Type 1 diabetes mellitus with unspecified complications (principal); E78.5 Hyperlipidemia, unspecified; E03.9 Hypothyroidism, unspecified

== ENCOUNTER → 2020-09-02 | Outpatient (CLI) | payer OTHER ==
[2020-09-02 18:52] LABS: ALBUMIN 3.6 gm/dl (3.1-4.5); ALKALINE PHOSPHATASE 81 U/L (45-117); BUN 19 mg/dl (7-24); CHLORIDE 106 mmol/L (98-107); CHOLESTEROL 133 mg/dL (<200); CREATININE 0.61 mg/dL (0.55-1.02); LDL CHOLESTEROL 65 mg/dL (9-159); POTASSIUM 3.7 mmol/L (3.5-5.1); SGOT/AST 13 IU/L (3-35); SGPT/ALT 18 U/L (12-78); SODIUM 140 mmol/L (136-145); TOTAL PROTEIN 6.9 gm/dL (6.4-8.2); TRIGLYCERIDES 86 mg/dl (<150)
[2020-09-03 08:08] LABS: LDL CHOLESTEROL (DIRECT) 61 mg/dL (0-99)
== END | disposition home or self-care (01) ==
LOC: LAB 17:43
PROVIDERS: ATTEND Nurse Practitioner
DX: M79.672 Pain in left foot (principal); E10.8 Type 1 diabetes mellitus with unspecified complications; E78.5 Hyperlipidemia, unspecified; E03.9 Hypothyroidism, unspecified

== ENCOUNTER 2020-10-03 17:39 | Emergency (ER) | payer OTHER ==
[~2020-10-03] VITALS: Wt 104.3 kg
== END 2020-10-03 23:56 | disposition home or self-care (01) ==
LOC: ED 17:39
DX: S92.511A Displaced fracture of proximal phalanx of right lesser toe(s), initial encounter for closed fracture (principal); Z88.1 Allergy status to other antibiotic agents; Z88.8 Allergy status to other drugs, medicaments and biological substances; Z79.899 Other long term (current) drug therapy; Z79.4 Long term (current) use of insulin; X58.XXXA Exposure to other specified factors, initial encounter; Y93.89 Activity, other specified; Y92.89 Other specified places as the place of occurrence of the external cause; Y99.8 Other external cause status

== ENCOUNTER → 2020-12-11 | Outpatient (CLI) | payer OTHER | END | disposition home or self-care (01) | LOC: MRI 07:49 | PROVIDERS: ATTEND Internal Medicine | DX: M25.561 Pain in right knee (principal) ==

== ENCOUNTER → 2020-12-21 | Outpatient (CLI) | payer OTHER | END | disposition home or self-care (01) | LOC: RAD 15:27 | PROVIDERS: ATTEND Internal Medicine | DX: M25.561 Pain in right knee (principal) ==

== ENCOUNTER 2020-12-23 12:44 | Emergency (ER) | payer OTHER ==
[~2020-12-23] VITALS: Wt 108.9 kg
== END 2020-12-23 17:02 | disposition home or self-care (01) ==
LOC: ED 12:44
DX: S80.12XA Contusion of left lower leg, initial encounter (principal); S80.11XA Contusion of right lower leg, initial encounter; Z88.8 Allergy status to other drugs, medicaments and biological substances; Z88.1 Allergy status to other antibiotic agents; Z79.899 Other long term (current) drug therapy; W22.8XXA Striking against or struck by other objects, initial encounter; Y93.89 Activity, other specified; Y92.89 Other specified places as the place of occurrence of the external cause; Y99.8 Other external cause status

== ENCOUNTER 2021-01-28 13:26 | Inpatient (IN) | payer OTHER ==
[2021-01-28 14:50] VITALS: BP 128/60
[2021-01-28 15:19] LABS: BASO % 0.3 % (0.0-1.0); HEMATOCRIT 40.5 % (37.0-47.0); LYMPH # 0.4 10*3/uL (1.3-4.4); MEAN CELL VOLUME 88.6 fl (81.0-99.0); MEAN CORPUSCULAR HGB 28.7 pg (27.0-31.0); MEAN CORPUSCULAR HGB CONC 32.3 g/dl (33.0-37.0); MONO # 0.3 10*3/uL (0.1-1.0); MONO % 5.5 % (3.0-9.0); NEUT # 5.3 10*3/uL (2.3-7.9); NEUT % 87.7 % (47.0-73.0); PLATELET COUNT AUTOMATED 204 10*3/uL (130-400); RED BLOOD COUNT 4.57 10*6/uL (4.10-5.10); RED CELL DISTRI WIDTH 12.1 % (0-14.5)
[2021-01-28 15:31] LABS: ACT PARTIAL THROMBO TIME 24.5 SECONDS (20.0-32.1)
[2021-01-28 15:40] LABS: ALBUMIN 3.4 gm/dl (3.1-4.5); ALKALINE PHOSPHATASE 81 U/L (45-117); BUN 17 mg/dl (7-24); CHLORIDE 102 mmol/L (98-107); CREATININE 0.85 mg/dL (0.55-1.02); LIPASE 26 U/L (73-393); POTASSIUM 4.1 mmol/L (3.5-5.1); SGOT/AST 25 IU/L (3-35); SGPT/ALT 23 U/L (12-78); SODIUM 135 mmol/L (136-145); TOTAL PROTEIN 7.1 gm/dL (6.4-8.2)
[2021-01-28 20:22] VITALS: BP 133/55
[2021-01-28 20:32] LABS: BUN 17 mg/dl (7-24); CHLORIDE 105 mmol/L (98-107); CREATININE 0.77 mg/dL (0.55-1.02); POTASSIUM 3.7 mmol/L (3.5-5.1); SODIUM 137 mmol/L (136-145)
[2021-01-28 21:00] LABS: BILIRUBIN Negative (Negative); BLOOD Negative (Negative); CLARITY Clear (Clear); COLOR Yellow (Yellow); GLUCOSE 3+ (Negative); KETONE 3+ (Negative); LEUKO ESTERASE Negative (Negative); NITRITE Negative (Negative); PH 6.5 (4.5-8.0); SPECIFIC GRAVITY >= 1.030 (1.001-1.030)
[2021-01-28 21:22] LABS: BACTERIA 1+
[2021-01-28 21:23] LABS: MUCOUS 1+
[2021-01-29 00:39] VITALS: BP 124/49
[2021-01-29 06:46] VITALS: BP 119/58
[2021-01-29 07:29] LABS: BASO % 0.3 % (0.0-1.0); HEMATOCRIT 37.9 % (37.0-47.0); LYMPH % 28.3 % (27.0-41.0); MEAN CELL VOLUME 88.1 fl (81.0-99.0); MEAN CORPUSCULAR HGB 28.8 pg (27.0-31.0); MEAN CORPUSCULAR HGB CONC 32.7 g/dl (33.0-37.0); MEAN PLATELET VOLUME 10.5 fl (9.6-12.3); MONO # 0.4 10*3/uL (0.1-1.0); NEUT % 58.8 % (47.0-73.0); PLATELET COUNT AUTOMATED 224 10*3/uL (130-400); RED CELL DISTRI WIDTH 12.4 % (0-14.5); WHITE BLOOD COUNT 3.4 10*3/uL (4.8-10.8)
[2021-01-29 07:39] LABS: BUN 14 mg/dl (7-24); CHLORIDE 106 mmol/L (98-107); CREATININE 0.65 mg/dL (0.55-1.02); POTASSIUM 3.6 mmol/L (3.5-5.1); SODIUM 137 mmol/L (136-145)
[2021-01-29 09:16] VITALS: BP 106/65
[2021-01-29 14:19] LABS: BUN 17 mg/dl (7-24); CHLORIDE 103 mmol/L (98-107); CREATININE 0.96 mg/dL (0.55-1.02); POTASSIUM 3.8 mmol/L (3.5-5.1); SODIUM 137 mmol/L (136-145)
== END 2021-01-29 16:37 | disposition home or self-care (01) | DRG 637 ==
LOC: ED 13:26 → EDHOLD 17:29
PROVIDERS: Emergency Medicine; Student in an Organized Health Care Education/Training Program; ADMIT Internal Medicine; ATTEND Internal Medicine
DX: E11.10 Type 2 diabetes mellitus with ketoacidosis without coma (principal); U07.1 COVID-19; E11.40 Type 2 diabetes mellitus with diabetic neuropathy, unspecified; E83.41 Hypermagnesemia; I10 Essential (primary) hypertension; E66.01 Morbid (severe) obesity due to excess calories; F51.01 Primary insomnia; E53.8 Deficiency of other specified B group vitamins; G43.909 Migraine, unspecified, not intractable, without status migrainosus; Z79.899 Other long term (current) drug therapy; Z90.49 Acquired absence of other specified parts of digestive tract; Z82.49 Family history of ischemic heart disease and other diseases of the circulatory system; Z83.6 Family history of other diseases of the respiratory system; Z88.8 Allergy status to other drugs, medicaments and biological substances; Z79.82 Long term (current) use of aspirin; Z79.4 Long term (current) use of insulin; Z86.79 Personal history of other diseases of the circulatory system

== ENCOUNTER 2021-02-01 02:20 | Emergency (ER) | payer OTHER ==
[~2021-02-01] VITALS: Ht 165.1 cm; Wt 131.1 kg
[2021-02-01 04:03] LABS: HEMATOCRIT 37.7 % (37.0-47.0); LYMPH # 0.4 10*3/uL (1.3-4.4); LYMPH % 12.8 % (27.0-41.0); MEAN CELL VOLUME 90.6 fl (81.0-99.0); MEAN CORPUSCULAR HGB 29.1 pg (27.0-31.0); MEAN CORPUSCULAR HGB CONC 32.1 g/dl (33.0-37.0); MEAN PLATELET VOLUME 10.2 fl (9.6-12.3); MONO # 0.3 10*3/uL (0.1-1.0); MONO % 9.1 % (3.0-9.0); NEUT # 2.6 10*3/uL (2.3-7.9); NEUT % 77.8 % (47.0-73.0); PLATELET COUNT AUTOMATED 184 10*3/uL (130-400); RED BLOOD COUNT 4.16 10*6/uL (4.10-5.10); RED CELL DISTRI WIDTH 12.1 % (0-14.5); WHITE BLOOD COUNT 3.3 10*3/uL (4.8-10.8)
[2021-02-01 04:18] LABS: ALBUMIN 3.1 gm/dl (3.1-4.5); ALKALINE PHOSPHATASE 72 U/L (45-117); BUN 11 mg/dl (7-24); CHLORIDE 109 mmol/L (98-107); CREATININE 0.65 mg/dL (0.55-1.02); POTASSIUM 3.4 mmol/L (3.5-5.1); SGOT/AST 35 IU/L (3-35); SGPT/ALT 27 U/L (12-78); SODIUM 139 mmol/L (136-145); TOTAL PROTEIN 6.4 gm/dL (6.4-8.2)
[2021-02-01] MEDS ORDERED: ZOFRAN4 MG PO (09:33)
== END 2021-02-01 09:54 | disposition home or self-care (01) ==
LOC: ED 02:20
PROVIDERS: Emergency Medicine
DX: U07.1 COVID-19 (principal)

== ENCOUNTER → 2021-03-24 | Outpatient (CLI) | payer OTHER ==
[2021-03-24 10:46] LABS: ALBUMIN 3.3 gm/dl (3.1-4.5); ALKALINE PHOSPHATASE 82 U/L (45-117); BUN 17 mg/dl (7-24); CHLORIDE 105 mmol/L (98-107); CHOLESTEROL 125 mg/dL (<200); CREATININE 0.76 mg/dL (0.55-1.02); POTASSIUM 4.3 mmol/L (3.5-5.1); SGOT/AST 17 IU/L (3-35); SGPT/ALT 19 U/L (12-78); SODIUM 138 mmol/L (136-145); TOTAL PROTEIN 6.9 gm/dL (6.4-8.2); TRIGLYCERIDES 56 mg/dl (<150)
[2021-03-24 10:51] LABS: FREE T4 0.96 ng/dl (0.76-1.46); LDL CHOLESTEROL 56 mg/dL (9-159)
[2021-03-25 05:06] LABS: LDL CHOLESTEROL (DIRECT) 67 mg/dL (0-99)
== END | disposition home or self-care (01) ==
LOC: LAB 09:59
PROVIDERS: ATTEND Internal Medicine Endocrinology, Diabetes & Metabolism
DX: E10.8 Type 1 diabetes mellitus with unspecified complications (principal); E03.9 Hypothyroidism, unspecified; E78.5 Hyperlipidemia, unspecified

== ENCOUNTER 2021-07-22 12:43 | Emergency (ER) | payer OTHER ==
[~2021-07-22] VITALS: Ht 162.5 cm; Wt 113.4 kg
[2021-07-22 13:52] LABS: HEMATOCRIT 39.9 % (37.0-47.0); MEAN CELL VOLUME 88.5 fl (81.0-99.0); MEAN CORPUSCULAR HGB 28.8 pg (27.0-31.0); MEAN CORPUSCULAR HGB CONC 32.6 g/dl (33.0-37.0); MEAN PLATELET VOLUME 10.3 fl (9.6-12.3); PLATELET COUNT AUTOMATED 232 10*3/uL (130-400); RED BLOOD COUNT 4.51 10*6/uL (4.10-5.10); RED CELL DISTRI WIDTH 12.4 % (0-14.5); WHITE BLOOD COUNT 10.8 10*3/uL (4.8-10.8)
[2021-07-22 13:54] LABS: MANUAL DIFF REFLEX YES
[2021-07-22 14:08] LABS: ALKALINE PHOSPHATASE 81 U/L (45-117); BUN 24 mg/dl (7-24); CHLORIDE 103 mmol/L (98-107); CREATININE 0.91 mg/dL (0.55-1.02); LIPASE 18 U/L (73-393); POTASSIUM 5.3 mmol/L (3.5-5.1); SGOT/AST 35 IU/L (3-35); SGPT/ALT 23 U/L (12-78); SODIUM 135 mmol/L (136-145); TOTAL PROTEIN 6.9 gm/dL (6.4-8.2)
[2021-07-22 14:15] LABS: PLATELET SUFFICIENCY NORMAL (NORMAL); TOTAL CELLS COUNTED 100 #CELLS; TOXIC GRANULATION SLIGHT
[2021-07-22 14:57] LABS: BILIRUBIN Negative (Negative); BLOOD Negative (Negative); CLARITY Clear (Clear); COLOR Yellow (Yellow); GLUCOSE 3+ (Negative); KETONE Negative (Negative); LEUKO ESTERASE Negative (Negative); NITRITE Negative (Negative); SPECIFIC GRAVITY 1.025 (1.001-1.030)
[2021-07-22 15:04] LABS: BACTERIA 2+
[2021-07-22 15:05] LABS: WBC 16-20 wbc/hpf (0-5)
[2021-07-22] MEDS ORDERED: ZOFRAN4 MG PO (17:01)
[2021-07-22] MEDS ORDERED: NITROFURANTOIN100 M9 PO (17:01)
== END 2021-07-22 17:25 | disposition home or self-care (01) ==
LOC: ED 12:43
PROVIDERS: Family Medicine
DX: N39.0 Urinary tract infection, site not specified (principal); Z88.8 Allergy status to other drugs, medicaments and biological substances; Z88.1 Allergy status to other antibiotic agents; Z98.51 Tubal ligation status; Z90.49 Acquired absence of other specified parts of digestive tract; Z98.890 Other specified postprocedural states

== ENCOUNTER → 2021-09-01 | Outpatient (CLI) | payer OTHER ==
[~2021-09-01] MED LIST changes: +NITROFURANTOIN100 M9 PO
[2021-09-01 08:51] LABS: ACT PARTIAL THROMBO TIME 24.8 SECONDS (20.0-32.1)
[2021-09-01 08:55] LABS: ALKALINE PHOSPHATASE 73 U/L (45-117); BUN 22 mg/dl (7-24); CHLORIDE 108 mmol/L (98-107); CREATININE 0.68 mg/dL (0.55-1.02); POTASSIUM 4.3 mmol/L (3.5-5.1); SGOT/AST 14 IU/L (3-35); SGPT/ALT 19 U/L (12-78); SODIUM 140 mmol/L (136-145); TOTAL PROTEIN 6.6 gm/dL (6.4-8.2)
[2021-09-01 09:02] VITALS: BP 140/65
== END | disposition home or self-care (01) ==
LOC: CT 08-31 08:00 → LAB 01:39 → CT 01:39
PROVIDERS: ATTEND Internal Medicine
DX: I51.7 Cardiomegaly (principal); R16.0 Hepatomegaly, not elsewhere classified; K76.6 Portal hypertension; M16.11 Unilateral primary osteoarthritis, right hip; Z90.49 Acquired absence of other specified parts of digestive tract

== ENCOUNTER 2021-09-19 08:39 | Emergency (ER) | payer OTHER ==
[~2021-09-19] VITALS: Ht 162.5 cm; Wt 108.9 kg
== END 2021-09-19 10:40 | disposition home or self-care (01) ==
LOC: ED 08:39
DX: S93.402A Sprain of unspecified ligament of left ankle, initial encounter (principal); S83.92XA Sprain of unspecified site of left knee, initial encounter; Z88.8 Allergy status to other drugs, medicaments and biological substances; Z88.1 Allergy status to other antibiotic agents; Z88.6 Allergy status to analgesic agent; Z79.2 Long term (current) use of antibiotics; Z79.899 Other long term (current) drug therapy; Z79.4 Long term (current) use of insulin; Z79.82 Long term (current) use of aspirin; Z90.49 Acquired absence of other specified parts of digestive tract; Z98.51 Tubal ligation status; Z98.890 Other specified postprocedural states; W01.0XXA Fall on same level from slipping, tripping and stumbling without subsequent striking against object, initial encounter; Y93.89 Activity, other specified; Y92.89 Other specified places as the place of occurrence of the external cause; Y99.8 Other external cause status

== ENCOUNTER → 2021-12-07 | Outpatient (CLI) | payer OTHER ==
[2021-12-07 09:29] LABS: CREATININE 0.72 mg/dL (0.55-1.02)
== END | disposition home or self-care (01) ==
LOC: CT 08:00 → LAB 08:37
PROVIDERS: Radiology Diagnostic Radiology; ATTEND Internal Medicine
DX: Z01.818 Encounter for other preprocedural examination (principal); Z90.49 Acquired absence of other specified parts of digestive tract; R93.5 Abnormal findings on diagnostic imaging of other abdominal regions, including retroperitoneum; R59.9 Enlarged lymph nodes, unspecified

== ENCOUNTER → 2022-02-12 | Outpatient (CLI) | payer OTHER ==
[2022-02-12 11:26] LABS: ALKALINE PHOSPHATASE 84 U/L (46-116); BUN 10 mg/dl (9-23); CHLORIDE 103 mmol/L (98-107); CHOLESTEROL 130 mg/dL (<200); CREATININE 0.79 mg/dL (0.55-1.02); FREE T4 0.91 ng/dl (0.89-1.76); LDL CHOLESTEROL 64 mg/dL (9-159); POTASSIUM 4.9 mmol/L (3.4-5.1); SGPT/ALT 13 U/L (10-49); THYROID STIM HORMONE (HS) 1.911 uIU/ml (0.550-4.780); TOTAL PROTEIN 6.8 gm/dL (6.0-8.0); TRIGLYCERIDES 59 mg/dl (<150)
== END | disposition home or self-care (01) ==
LOC: LAB 10:48
PROVIDERS: ATTEND Physician Assistant
DX: E10.65 Type 1 diabetes mellitus with hyperglycemia (principal)

== ENCOUNTER → 2022-10-04 | Outpatient (CLI) | payer OTHER ==
[2022-10-04 17:44] LABS: ALKALINE PHOSPHATASE 83 U/L (46-116); BUN 16 mg/dl (9-23); CHLORIDE 112 mmol/L (98-107); CHOLESTEROL 161 mg/dL (<200); FREE T4 0.82 ng/dl (0.89-1.76); LDL CHOLESTEROL 94 mg/dL (9-159); POTASSIUM 4.2 mmol/L (3.4-5.1); SGPT/ALT 10 U/L (10-49); TOTAL PROTEIN 6.5 gm/dL (6.0-8.0)
== END | disposition home or self-care (01) ==
LOC: LAB 17:02
PROVIDERS: ATTEND Physician Assistant
DX: E10.65 Type 1 diabetes mellitus with hyperglycemia (principal); E78.5 Hyperlipidemia, unspecified; E03.9 Hypothyroidism, unspecified

== ENCOUNTER 2022-10-23 20:13 | Inpatient (IN) | payer OTHER ==
[~2022-10-23] VITALS: Ht 162.5 cm; Wt 115.4 kg
[2022-10-23 20:26] VITALS: BP 129/56
[2022-10-23 20:51] LABS: HEMATOCRIT 41.3 % (37.0-47.0); MEAN CELL VOLUME 88.2 fl (81.0-99.0); MEAN CORPUSCULAR HGB 29.3 pg (27.0-31.0); MEAN CORPUSCULAR HGB CONC 33.2 g/dl (33.0-37.0); MEAN PLATELET VOLUME 10.5 fl (9.6-12.3); PLATELET COUNT AUTOMATED 302 10*3/uL (130-400); RED BLOOD COUNT 4.68 10*6/uL (4.10-5.10); RED CELL DISTRI WIDTH 12.7 % (0-14.5); WHITE BLOOD COUNT 15.4 10*3/uL (4.8-10.8)
[2022-10-23 20:53] LABS: MANUAL DIFF REFLEX YES
[2022-10-23 21:14] LABS: POTASSIUM 4.6 mmol/L (3.4-5.1); TOTAL PROTEIN 7.5 gm/dL (6.0-8.0)
[2022-10-23 21:16] LABS: PLATELET SUFFICIENCY NORMAL (NORMAL); TOTAL CELLS COUNTED 100 #CELLS
[2022-10-23 21:18] LABS: BURR CELLS FEW
[2022-10-23] MEDS ORDERED: LISINOPRIL20 MG PO (22:13)
[2022-10-24] VITALS (7 sets, daily range): BP systolic 110–152; BP diastolic 50–78
[2022-10-24 01:27] LABS: BUN 21 mg/dl (9-23); CHLORIDE 109 mmol/L (98-107); POTASSIUM 4.1 mmol/L (3.4-5.1)
[2022-10-24 05:50] LABS: VITAMIN D, 25-HYDROXY 33.7 ng/mL (30-100)
[2022-10-24 05:52] LABS: BUN 24 mg/dl (9-23); CHLORIDE 109 mmol/L (98-107); POTASSIUM 4.2 mmol/L (3.4-5.1)
[2022-10-24 06:34] LABS: BASO % 0.3 % (0.0-1.0); HEMATOCRIT 34.1 % (37.0-47.0); LYMPH # 0.9 10*3/uL (1.3-4.4); LYMPH % 8.7 % (27.0-41.0); MEAN CELL VOLUME 88.1 fl (81.0-99.0); MEAN CORPUSCULAR HGB 29.2 pg (27.0-31.0); MEAN CORPUSCULAR HGB CONC 33.1 g/dl (33.0-37.0); MONO # 0.8 10*3/uL (0.1-1.0); MONO % 7.7 % (3.0-9.0); NEUT % 82.7 % (47.0-73.0); PLATELET COUNT AUTOMATED 261 10*3/uL (130-400); RED BLOOD COUNT 3.87 10*6/uL (4.10-5.10); RED CELL DISTRI WIDTH 12.8 % (0-14.5); WHITE BLOOD COUNT 10.8 10*3/uL (4.8-10.8)
[2022-10-24 18:32] LABS: BILIRUBIN Negative (Negative); BLOOD Negative (Negative); CLARITY Clear (Clear); COLOR Yellow (Yellow); GLUCOSE 1+ (Negative); KETONE 1+ (Negative); LEUKO ESTERASE 1+ (Negative); NITRITE Negative (Negative); SPECIFIC GRAVITY >= 1.030 (1.001-1.030)
[2022-10-24 18:54] LABS: BACTERIA 2+; RBC 0-2 rbc/hpf (0-2)
[2022-10-24 20:28] LABS: BUN 20 mg/dl (9-23); CHLORIDE 110 mmol/L (98-107); POTASSIUM 3.5 mmol/L (3.4-5.1)
[2022-10-25] VITALS: BP 132/63
[2022-10-25 06:21] LABS: BUN 14 mg/dl (9-23); CHLORIDE 112 mmol/L (98-107); POTASSIUM 3.8 mmol/L (3.4-5.1)
[2022-10-25 08:00] VITALS: BP 142/60
[2022-10-25 12:00] VITALS: BP 152/63
[2022-10-25] MEDS ORDERED: CEFUROXIME AXE500 MG PO (12:31)
[2022-10-25 16:00] VITALS: BP 140/78
== END 2022-10-25 18:21 | disposition home or self-care (01) | DRG 638 ==
LOC: ED 20:13 → ICCU 10-24 02:26 → EDHOLD 10-24 02:26 → ICCU 10-24 07:54
PROVIDERS: Internal Medicine; Student in an Organized Health Care Education/Training Program; ADMIT Internal Medicine; ATTEND Internal Medicine
DX: E10.10 Type 1 diabetes mellitus with ketoacidosis without coma (principal); N17.9 Acute kidney failure, unspecified; N39.0 Urinary tract infection, site not specified; N18.9 Chronic kidney disease, unspecified; D72.829 Elevated white blood cell count, unspecified; I12.9 Hypertensive chronic kidney disease with stage 1 through stage 4 chronic kidney disease, or unspecified chronic kidney disease; E10.22 Type 1 diabetes mellitus with diabetic chronic kidney disease; E78.5 Hyperlipidemia, unspecified; E10.40 Type 1 diabetes mellitus with diabetic neuropathy, unspecified; F51.01 Primary insomnia; E87.8 Other disorders of electrolyte and fluid balance, not elsewhere classified; Z88.6 Allergy status to analgesic agent; Z86.16 Personal history of COVID-19; Z88.1 Allergy status to other antibiotic agents; Z88.8 Allergy status to other drugs, medicaments and biological substances; Z90.49 Acquired absence of other specified parts of digestive tract; Z98.51 Tubal ligation status; Z82.49 Family history of ischemic heart disease and other diseases of the circulatory system; Z83.6 Family history of other diseases of the respiratory system

== ENCOUNTER → 2022-11-15 | Outpatient (CLI) | payer OTHER ==
[~2022-11-15] MED LIST changes: +CEFUROXIME AXE500 MG PO; +LISINOPRIL20 MG PO
== END | disposition home or self-care (01) ==
LOC: MAMMO 16:15
PROVIDERS: ATTEND Internal Medicine
DX: Z12.31 Encounter for screening mammogram for malignant neoplasm of breast (principal)

== ENCOUNTER 2022-11-27 12:43 | Inpatient (IN) | payer OTHER ==
[2022-11-27] VITALS (10 sets, daily range): BP systolic 153–189; BP diastolic 61–95
[~2022-11-27] VITALS: Ht 162.5 cm; Wt 113.6 kg
[2022-11-27 17:17] LABS: BASO % 0.2 % (0.0-1.0); EOS % 0.1 % (1.0-4.0); HEMATOCRIT 40.5 % (37.0-47.0); LYMPH # 1.1 10*3/uL (1.3-4.4); LYMPH % 11.3 % (27.0-41.0); MEAN CELL VOLUME 87.9 fl (81.0-99.0); MEAN CORPUSCULAR HGB 29.3 pg (27.0-31.0); MEAN CORPUSCULAR HGB CONC 33.3 g/dl (33.0-37.0); MEAN PLATELET VOLUME 10.2 fl (9.6-12.3); MONO # 0.6 10*3/uL (0.1-1.0); MONO % 5.8 % (3.0-9.0); NEUT # 8.1 10*3/uL (2.3-7.9); NEUT % 82.4 % (47.0-73.0); PLATELET COUNT AUTOMATED 243 10*3/uL (130-400); RED BLOOD COUNT 4.61 10*6/uL (4.10-5.10); RED CELL DISTRI WIDTH 12.7 % (0-14.5); WHITE BLOOD COUNT 9.8 10*3/uL (4.8-10.8)
[2022-11-27 17:58] LABS: ALKALINE PHOSPHATASE 128 U/L (46-116); BUN 13 mg/dl (9-23); CHLORIDE 107 mmol/L (98-107); POTASSIUM 3.8 mmol/L (3.4-5.1); SGPT/ALT 57 U/L (10-49); TOTAL PROTEIN 6.7 gm/dL (6.0-8.0)
[2022-11-27 21:12] LABS: BILIRUBIN Negative (Negative); BLOOD Negative (Negative); CLARITY Clear (Clear); COLOR Yellow (Yellow); GLUCOSE Negative (Negative); KETONE Negative (Negative); LEUKO ESTERASE 2+ (Negative); NITRITE Negative (Negative); PH 6.5 (4.5-8.0); SPECIFIC GRAVITY 1.015 (1.001-1.030)
[2022-11-27 21:38] LABS: BACTERIA 3+
[2022-11-27 21:39] LABS: EPITHELIAL CELLS TNTC; WBC 21-30 wbc/hpf (0-5)
[2022-11-28] VITALS (9 sets, daily range): BP systolic 118–150; BP diastolic 48–83
[2022-11-28 04:33] LABS: BASO % 0.4 % (0.0-1.0); HEMATOCRIT 37.4 % (37.0-47.0); LYMPH # 0.7 10*3/uL (1.3-4.4); LYMPH % 9.6 % (27.0-41.0); MEAN CELL VOLUME 87.6 fl (81.0-99.0); MEAN CORPUSCULAR HGB 29.7 pg (27.0-31.0); MONO # 0.6 10*3/uL (0.1-1.0); MONO % 7.4 % (3.0-9.0); NEUT # 6.3 10*3/uL (2.3-7.9); NEUT % 82.3 % (47.0-73.0); PLATELET COUNT AUTOMATED 229 10*3/uL (130-400); RED BLOOD COUNT 4.27 10*6/uL (4.10-5.10); RED CELL DISTRI WIDTH 12.8 % (0-14.5); WHITE BLOOD COUNT 7.6 10*3/uL (4.8-10.8)
[2022-11-28 04:53] LABS: ALKALINE PHOSPHATASE 107 U/L (46-116); BUN 13 mg/dl (9-23); CHLORIDE 107 mmol/L (98-107); POTASSIUM 3.7 mmol/L (3.4-5.1); SGPT/ALT 41 U/L (10-49); TOTAL PROTEIN 6.1 gm/dL (6.0-8.0)
[2022-11-29] VITALS: BP 102/50
[2022-11-29 05:32] LABS: ALKALINE PHOSPHATASE 96 U/L (46-116); BUN 11 mg/dl (9-23); CHLORIDE 108 mmol/L (98-107); POTASSIUM 3.6 mmol/L (3.4-5.1); SGPT/ALT 20 U/L (10-49); TOTAL PROTEIN 6.1 gm/dL (6.0-8.0)
[2022-11-29 06:15] LABS: BASO % 0.5 % (0.0-1.0); HEMATOCRIT 39.6 % (37.0-47.0); LYMPH # 1.3 10*3/uL (1.3-4.4); LYMPH % 16.3 % (27.0-41.0); MEAN CELL VOLUME 90.2 fl (81.0-99.0); MEAN CORPUSCULAR HGB 29.2 pg (27.0-31.0); MEAN CORPUSCULAR HGB CONC 32.3 g/dl (33.0-37.0); MEAN PLATELET VOLUME 11.5 fl (9.6-12.3); MONO # 0.8 10*3/uL (0.1-1.0); MONO % 9.8 % (3.0-9.0); PLATELET COUNT AUTOMATED 239 10*3/uL (130-400); RED BLOOD COUNT 4.39 10*6/uL (4.10-5.10); RED CELL DISTRI WIDTH 12.6 % (0-14.5); WHITE BLOOD COUNT 8.2 10*3/uL (4.8-10.8)
[2022-11-29 08:12] VITALS: BP 122/51
[2022-11-29 11:20] VITALS: BP 113/46
[2022-11-29 16:00] VITALS: BP 118/60
[2022-11-29 20:00] VITALS: BP 118/76
[2022-11-30] VITALS: BP 136/82
[2022-11-30 08:00] VITALS: BP 133/90
[2022-11-30 12:00] VITALS: BP 116/66
[2022-11-30 16:00] VITALS: BP 136/61
== END 2022-11-30 17:17 | disposition left against medical advice (07) | DRG 494 ==
LOC: ED 12:43 → 5E 17:07 → EDHOLD 17:07 → 5E 18:58
PROVIDERS: Internal Medicine; ADMIT Internal Medicine; ATTEND Internal Medicine
PROC: 0QSK04Z Reposition Left Fibula with Internal Fixation Device, Open Approach (ICD-10-PCS; principal; 2022-11-28)
PROC: 0QSH04Z Reposition Left Tibia with Internal Fixation Device, Open Approach (ICD-10-PCS; 2022-11-28)
PROC: 3E0T3BZ Introduction of Anesthetic Agent into Peripheral Nerves and Plexi, Percutaneous Approach (ICD-10-PCS; 2022-11-28)
DX: S82.852A Displaced trimalleolar fracture of left lower leg, initial encounter for closed fracture (principal); E10.40 Type 1 diabetes mellitus with diabetic neuropathy, unspecified; I10 Essential (primary) hypertension; G43.909 Migraine, unspecified, not intractable, without status migrainosus; E53.8 Deficiency of other specified B group vitamins; R26.81 Unsteadiness on feet; Z88.1 Allergy status to other antibiotic agents; Z88.8 Allergy status to other drugs, medicaments and biological substances; Z90.49 Acquired absence of other specified parts of digestive tract; Z98.51 Tubal ligation status; Z83.6 Family history of other diseases of the respiratory system; Z82.49 Family history of ischemic heart disease and other diseases of the circulatory system; Z83.3 Family history of diabetes mellitus; Z80.9 Family history of malignant neoplasm, unspecified

== ENCOUNTER → 2022-12-05 | Outpatient (CLI) | payer OTHER | END | disposition home or self-care (01) | LOC: ORTHO 13:20 | PROVIDERS: ATTEND Orthopaedic Surgery | DX: S82.852A Displaced trimalleolar fracture of left lower leg, initial encounter for closed fracture (principal); X58.XXXA Exposure to other specified factors, initial encounter; Y93.89 Activity, other specified; Y92.89 Other specified places as the place of occurrence of the external cause; Y99.8 Other external cause status ==

== ENCOUNTER → 2023-01-04 | Outpatient (CLI) | payer OTHER | END | disposition home or self-care (01) | LOC: ORTHO 11:03 | PROVIDERS: ATTEND Orthopaedic Surgery | DX: S82.852D Displaced trimalleolar fracture of left lower leg, subsequent encounter for closed fracture with routine healing (principal); X58.XXXD Exposure to other specified factors, subsequent encounter ==

== ENCOUNTER → 2023-02-15 | Outpatient (CLI) | payer OTHER | END | disposition home or self-care (01) | LOC: ORTHO 02:47 | PROVIDERS: ATTEND Orthopaedic Surgery | DX: S82.852D Displaced trimalleolar fracture of left lower leg, subsequent encounter for closed fracture with routine healing (principal); M79.89 Other specified soft tissue disorders; X58.XXXD Exposure to other specified factors, subsequent encounter ==

== ENCOUNTER 2023-03-19 21:02 | Inpatient (IN) | payer OTHER ==
[~2023-03-19] VITALS: Ht 167.6 cm; Wt 112.6 kg
[2023-03-19] MEDS ORDERED: INSULIN REGULAR, HUMAN 1 UNIT/0.01 ML IV ONE ×2 (21:25→22:10)
[2023-03-19] MEDS ORDERED: SODIUM CHLORIDE 0.9% 1,000 ML IV ONE ×2 (21:25→21:27)
[2023-03-19] MEDS ORDERED: Ondansetron Hydrochloride 4 MG/2 ML VIAL ONE (21:27)
[2023-03-19 21:35] LABS: HEMATOCRIT 40.9 % (37.0-47.0); MEAN CELL VOLUME 90.7 fl (81.0-99.0); MEAN CORPUSCULAR HGB 28.8 pg (27.0-31.0); MEAN CORPUSCULAR HGB CONC 31.8 g/dl (33.0-37.0); MEAN PLATELET VOLUME 10.9 fl (9.6-12.3); PLATELET COUNT AUTOMATED 291 10*3/uL (130-400); RED BLOOD COUNT 4.51 10*6/uL (4.10-5.10); RED CELL DISTRI WIDTH 12.7 % (0-14.5); WHITE BLOOD COUNT 16.7 10*3/uL (4.8-10.8)
[2023-03-19 21:36] LABS: MANUAL DIFF REFLEX YES
[2023-03-19 21:54] LABS: PLATELET SUFFICIENCY NORMAL (NORMAL); TOTAL CELLS COUNTED 100 #CELLS
[2023-03-19 22:04] LABS: ALKALINE PHOSPHATASE 115 U/L (46-116); BUN 20 mg/dl (9-23); CHLORIDE 98 mmol/L (98-107); LIPASE 19 U/L (12-53); POTASSIUM 4.7 mmol/L (3.4-5.1); SGPT/ALT 17 U/L (5-49); TOTAL PROTEIN 7.3 gm/dL (6.0-8.0)
[2023-03-19] MEDS ORDERED: ACETAMINOPHEN 325 MG TAB PO ONE (22:20)
[2023-03-19 22:52] LABS: BILIRUBIN Negative (Negative); BLOOD Negative (Negative); CLARITY Clear (Clear); COLOR Yellow (Yellow); GLUCOSE 3+ (Negative); KETONE 3+ (Negative); LEUKO ESTERASE Negative (Negative); NITRITE Negative (Negative); PH 5.5 (4.5-8.0); SPECIFIC GRAVITY >= 1.030 (1.001-1.030); UROBILINOGEN 0.2 E.U./dl (0.0-1.0)
[2023-03-20 00:44] LABS: ABG BASE EXCESS -2.1 mmol/L (-2.0-2.0); ARTERIAL BLOOD GAS PH 7.414 (7.35-7.45)
[2023-03-20 01:35] VITALS: BP 106/44
[2023-03-20 02:47] VITALS: BP 111/61
[2023-03-20 03:00] VITALS: BP 96/32
[2023-03-20] MEDS ORDERED: DEXCOM G61 EAC1 MC (03:15)
[2023-03-20] MEDS ORDERED: SAMBUCUS E50 MG/5 M1 PO (03:15)
[2023-03-20 03:16] LABS: BUN 21 mg/dl (9-23); CHLORIDE 104 mmol/L (98-107); POTASSIUM 4.7 mmol/L (3.4-5.1)
[2023-03-20] MEDS ORDERED: CLOBEX T (03:17)
[2023-03-20] MEDS ORDERED: INSULIN REGULAR IN 0.9 % NACL 100 ML IV SCH ×2 (03:30→07:10)
[2023-03-20] MEDS ORDERED: Acetaminophen/Hydrocodone 5 MG/325 MG TABLET PO ONE (03:30)
[2023-03-20] MEDS ORDERED: Ondansetron Hydrochloride 4 MG/2 ML VIAL IV ONE (03:30)
[2023-03-20] MEDS ORDERED: DEXTROSE 5% SALINE 0.45% 1,000 ML IV SCH (03:35)
[2023-03-20] MEDS ORDERED: Ondansetron Hydrochloride 4 MG/2 ML VIAL IM ONE (05:25)
[2023-03-20] MEDS ORDERED: INSULIN REGULAR, HUMAN 1 UNIT/0.01 ML SC ONE (05:25)
[2023-03-20 06:44] LABS: ALKALINE PHOSPHATASE 98 U/L (46-116); BUN 16 mg/dl (9-23); CHLORIDE 103 mmol/L (98-107); POTASSIUM 4.9 mmol/L (3.4-5.1); SGPT/ALT 14 U/L (5-49); TOTAL PROTEIN 6.6 gm/dL (6.0-8.0)
[2023-03-20 06:49] LABS: HEMATOCRIT 37.5 % (37.0-47.0); MANUAL DIFF REFLEX YES; MEAN CELL VOLUME 91.2 fl (81.0-99.0); MEAN CORPUSCULAR HGB 28.7 pg (27.0-31.0); MEAN CORPUSCULAR HGB CONC 31.5 g/dl (33.0-37.0); MEAN PLATELET VOLUME 12.1 fl (9.6-12.3); PLATELET COUNT AUTOMATED 274 10*3/uL (130-400); RED BLOOD COUNT 4.11 10*6/uL (4.10-5.10); RED CELL DISTRI WIDTH 13.1 % (0-14.5); WHITE BLOOD COUNT 13.9 10*3/uL (4.8-10.8)
[2023-03-20 07:40] LABS: BURR CELLS MODERATE; PLATELET SUFFICIENCY NORMAL (NORMAL); POLYCHROMASIA SLIGHT; TOTAL CELLS COUNTED 100 #CELLS; TOXIC GRANULATION SLIGHT; VACUOLATION OF NEUTROPHILS SLIGHT
[2023-03-20] MEDS ORDERED: Enoxaparin Sodium 40 MG/0.4 ML SYR SC SCH (10:00)
[2023-03-20 10:47] LABS: BUN 22 mg/dl (9-23); CHLORIDE 108 mmol/L (98-107)
[2023-03-20 10:48] LABS: POTASSIUM 3.8 mmol/L (3.4-5.1)
[2023-03-20 12:00] VITALS: BP 104/42
[2023-03-20] MEDS ORDERED: Insulin Glargine, Recombinan 1 UNIT/0.01 ML SC ONE ×2 (12:20→22:15)
[2023-03-20] MEDS ORDERED: Doxycycline Hyclate 100 MG CAP PO SCH (12:36)
[2023-03-20 16:00] VITALS: BP 113/39
[2023-03-20] MEDS ORDERED: INSULIN REGULAR, HUMAN 1 UNIT/0.01 ML SC SCH (16:30)
[2023-03-20] MEDS ORDERED: Ketorolac Tromethamine 30 MG/ML VIAL IV ONE (19:55)
[2023-03-20 20:00] VITALS: BP 138/60
[2023-03-21] VITALS: BP 122/48
[2023-03-21 06:15] LABS: BASO % 0.2 % (0.0-1.0); EOS % 0.2 % (1.0-4.0); HEMATOCRIT 37.1 % (37.0-47.0); LYMPH # 1.4 10*3/uL (1.3-4.4); MEAN CELL VOLUME 90.7 fl (81.0-99.0); MEAN CORPUSCULAR HGB 28.6 pg (27.0-31.0); MEAN CORPUSCULAR HGB CONC 31.5 g/dl (33.0-37.0); MONO # 0.9 10*3/uL (0.1-1.0); NEUT # 11.8 10*3/uL (2.3-7.9); NEUT % 83.2 % (47.0-73.0); PLATELET COUNT AUTOMATED 268 10*3/uL (130-400); RED BLOOD COUNT 4.09 10*6/uL (4.10-5.10); RED CELL DISTRI WIDTH 13.2 % (0-14.5); WHITE BLOOD COUNT 14.2 10*3/uL (4.8-10.8)
[2023-03-21 06:28] LABS: BUN 22 mg/dl (9-23); CHLORIDE 105 mmol/L (98-107)
[2023-03-21 08:00] VITALS: BP 133/54
[2023-03-21 12:00] VITALS: BP 149/69
[2023-03-21] MEDS ORDERED: DOXYCYCLINE MO100 MG PO (12:21)
[2023-03-21] MEDS ORDERED: Insulin Glargine, Recombinan 1 UNIT/0.01 ML SC ONE (13:30)
== END 2023-03-21 18:59 | disposition home or self-care (01) | DRG 637 ==
LOC: ED 21:02 → EDHOLD 03-20 02:04 → ICCU 03-20 02:04
PROVIDERS: Internal Medicine; Student in an Organized Health Care Education/Training Program; ADMIT Internal Medicine; ATTEND Internal Medicine
DX: E11.10 Type 2 diabetes mellitus with ketoacidosis without coma (principal); N17.0 Acute kidney failure with tubular necrosis; Z68.41 Body mass index [BMI] 40.0-44.9, adult; I95.9 Hypotension, unspecified; J40 Bronchitis, not specified as acute or chronic; E86.0 Dehydration; E66.9 Obesity, unspecified; Z98.51 Tubal ligation status; Z90.49 Acquired absence of other specified parts of digestive tract; Z82.5 Family history of asthma and other chronic lower respiratory diseases; Z82.49 Family history of ischemic heart disease and other diseases of the circulatory system; Z88.1 Allergy status to other antibiotic agents; Z88.8 Allergy status to other drugs, medicaments and biological substances; Z88.5 Allergy status to narcotic agent; Z79.82 Long term (current) use of aspirin; Z79.4 Long term (current) use of insulin; Z79.899 Other long term (current) drug therapy

== ENCOUNTER → 2023-03-27 | Outpatient (CLI) | payer OTHER ==
[~2023-03-27] MED LIST changes: +CLOBEX T; +DEXCOM G61 EAC1 MC; +DOXYCYCLINE MO100 MG PO; +SAMBUCUS E50 MG/5 M1 PO
== END | disposition home or self-care (01) ==
LOC: ORTHO 02:07
PROVIDERS: ATTEND Orthopaedic Surgery
DX: S82.852D Displaced trimalleolar fracture of left lower leg, subsequent encounter for closed fracture with routine healing (principal); M25.472 Effusion, left ankle; X58.XXXD Exposure to other specified factors, subsequent encounter

== ENCOUNTER → 2023-05-26 | Outpatient (CLI) | payer OTHER | LOC: ORTHO 00:44 | PROVIDERS: ATTEND Orthopaedic Surgery | DX: S82.852D Displaced trimalleolar fracture of left lower leg, subsequent encounter for closed fracture with routine healing (principal); M79.89 Other specified soft tissue disorders; X58.XXXD Exposure to other specified factors, subsequent encounter ==

== ENCOUNTER 2023-06-20 18:29 | Inpatient (IN) | payer OTHER ==
[~2023-06-20] VITALS: Ht 162.6 cm; Wt 122.0 kg
[2023-06-20 18:48] VITALS: BP 146/51
[2023-06-20] MEDS ORDERED: SODIUM CHLORIDE 0.9% 1,000 ML IV ONE ×3 (18:50→23:47)
[2023-06-20 19:05] LABS: HEMATOCRIT 37.5 % (37.0-47.0); MEAN CELL VOLUME 89.9 fl (81.0-99.0); MEAN CORPUSCULAR HGB 28.8 pg (27.0-31.0); MEAN PLATELET VOLUME 10.5 fl (9.6-12.3); PLATELET COUNT AUTOMATED 259 10*3/uL (130-400); RED BLOOD COUNT 4.17 10*6/uL (4.10-5.10); WHITE BLOOD COUNT 14.4 10*3/uL (4.8-10.8)
[2023-06-20 19:10] LABS: VENOUS PH 7.336 (7.37-7.45)
[2023-06-20 19:11] LABS: MANUAL DIFF REFLEX YES
[2023-06-20 19:28] LABS: ALKALINE PHOSPHATASE 92 U/L (46-116); BUN 23 mg/dl (9-23); CHLORIDE 101 mmol/L (98-107); POTASSIUM 4.6 mmol/L (3.4-5.1); SGPT/ALT 15 U/L (5-49); TOTAL PROTEIN 6.9 gm/dL (6.0-8.0)
[2023-06-20 19:29] LABS: PLATELET SUFFICIENCY NORMAL (NORMAL); TOTAL CELLS COUNTED 100 #CELLS
[2023-06-20 19:30] LABS: BURR CELLS FEW
[2023-06-20] MEDS ORDERED: INSULIN REGULAR, HUMAN 1 UNIT/0.01 ML IV ONE (19:45)
[2023-06-20 20:01] LABS: BILIRUBIN Negative (Negative); BLOOD Negative (Negative); CLARITY Clear (Clear); COLOR Yellow (Yellow); GLUCOSE 3+ (Negative); KETONE 2+ (Negative); NITRITE Negative (Negative); SPECIFIC GRAVITY 1.025 (1.001-1.030); UROBILINOGEN 0.2 E.U./dl (0.0-1.0)
[2023-06-20 20:14] LABS: BACTERIA 1+; LEUKO ESTERASE Trace (Negative); RBC 0-2 rbc/hpf (0-2)
[2023-06-20] MEDS ORDERED: ACETAMINOPHEN 325 MG TAB PO ONE (20:20)
[2023-06-20] MEDS ORDERED: Ondansetron Hydrochloride 4 MG/2 ML VIAL IV ONE ×2 (22:05→22:35)
[2023-06-20] MEDS ORDERED: Magnesium Hydroxide 30 ML UDC PO PRN (22:25)
[2023-06-20] MEDS ORDERED: ACETAMINOPHEN 650 MG SUPP R PRN (22:25)
[2023-06-20] MEDS ORDERED: ACETAMINOPHEN 325 MG TAB PO PRN (22:25)
[2023-06-20] MEDS ORDERED: BISACODYL 5 MG TAB PO PRN (22:25)
[2023-06-20] MEDS ORDERED: BISACODYL 10 MG SUPP R PRN (22:25)
[2023-06-20 23:28] VITALS: BP 141/75
[2023-06-20 23:33] LABS: BUN 20 mg/dl (9-23); CHLORIDE 106 mmol/L (98-107); POTASSIUM 4.3 mmol/L (3.4-5.1)
[2023-06-20] MEDS ORDERED: DEXTROSE 10 % IN WATER 250 ML DEHP.FR.BG IV PRN (23:40)
[2023-06-20] MEDS ORDERED: POTASSIUM CHLORIDE 20 MEQ/100 ML BAG IV PRN (23:40)
[2023-06-20] MEDS ORDERED: INSULIN REGULAR IN 0.9 % NACL 100 ML IV SCH (23:40)
[2023-06-20] MEDS ORDERED: POTASSIUM CHLORIDE 20 MEQ TAB PO PRN (23:40)
[2023-06-21] VITALS (7 sets, daily range): BP systolic 101–157; BP diastolic 42–57
[2023-06-21] MEDS ORDERED: SODIUM CHLORIDE 0.9% 1,000 ML IV ONE (01:35)
[2023-06-21] MEDS ORDERED: Ketorolac Tromethamine 15 MG/ML VIAL IV ONE (01:40)
[2023-06-21] MEDS ORDERED: CIPROFLOXACIN 200 ML IV SCH (01:40)
[2023-06-21] MEDS ORDERED: diphenhydrAMINE hydrochloride 50 MG/ML VIAL IV ONE (01:40)
[2023-06-21 02:05] LABS: VITAMIN D, 25-HYDROXY 46.5 ng/mL (30-100)
[2023-06-21] MEDS ORDERED: SODIUM CHLORIDE 0.45% 1,000 ML IV SCH ×2 (02:50→02:55)
[2023-06-21] MEDS ORDERED: POTASSIUM CL D5/.45NS SOL. 1,000 ML IV ONE (03:00)
[2023-06-21 04:59] LABS: BUN 19 mg/dl (9-23); CHLORIDE 110 mmol/L (98-107); CHOLESTEROL 114 mg/dL (<200); FREE T4 0.92 ng/dl (0.89-1.76); LDL CHOLESTEROL 54 mg/dL (9-159); POTASSIUM 4.2 mmol/L (3.4-5.1); TRIGLYCERIDES 49 mg/dl (<150)
[2023-06-21 08:13] LABS: BUN 26 mg/dl (9-23); CHLORIDE 112 mmol/L (98-107); POTASSIUM 3.7 mmol/L (3.4-5.1)
[2023-06-21] MEDS ORDERED: Ondansetron Hydrochloride 4 MG TAB PO PRN (12:35)
[2023-06-21 12:36] LABS: BUN 27 mg/dl (9-23); CHLORIDE 106 mmol/L (98-107); POTASSIUM 4.3 mmol/L (3.4-5.1)
[2023-06-21] MEDS ORDERED: INSULIN REGULAR, HUMAN 1 UNIT/0.01 ML SC ONE (12:50)
[2023-06-21] MEDS ORDERED: SODIUM CHLORIDE 0.9% 1,000 ML IV SCH (13:50)
[2023-06-21] MEDS ORDERED: INSULIN LISPRO 1 UNIT/0.01 ML SQ ONE (15:45)
[2023-06-21] MEDS ORDERED: DEXTROSE 10 % IN WATER 250 ML IV PRN (16:10)
[2023-06-21] MEDS ORDERED: INSULIN LISPRO 1 UNIT/0.01 ML SQ SCH (16:30)
[2023-06-21] MEDS ORDERED: Insulin Glargine, Recombinan 1 UNIT/0.01 ML SC ONE (17:30)
[2023-06-21] MEDS ORDERED: Ketorolac Tromethamine 30 MG/ML VIAL IV ONE (19:15)
[2023-06-22] VITALS: BP 122/50
[2023-06-22] MEDS ORDERED: Pantoprazole Sodium 40 MG VIAL IV SCH (06:00)
[2023-06-22 06:11] LABS: BUN 25 mg/dl (9-23); CHLORIDE 107 mmol/L (98-107)
[2023-06-22 06:30] LABS: BASO % 0.4 % (0.0-1.0); HEMATOCRIT 33.7 % (37.0-47.0); LYMPH # 1.3 10*3/uL (1.3-4.4); LYMPH % 13.5 % (27.0-41.0); MEAN CELL VOLUME 92.3 fl (81.0-99.0); MEAN CORPUSCULAR HGB 28.8 pg (27.0-31.0); MEAN CORPUSCULAR HGB CONC 31.2 g/dl (33.0-37.0); MEAN PLATELET VOLUME 10.4 fl (9.6-12.3); MONO # 0.7 10*3/uL (0.1-1.0); MONO % 6.9 % (3.0-9.0); NEUT # 7.6 10*3/uL (2.3-7.9); NEUT % 78.8 % (47.0-73.0); PLATELET COUNT AUTOMATED 261 10*3/uL (130-400); RED BLOOD COUNT 3.65 10*6/uL (4.10-5.10); RED CELL DISTRI WIDTH 13.4 % (0-14.5); WHITE BLOOD COUNT 9.7 10*3/uL (4.8-10.8)
[2023-06-22 08:00] VITALS: BP 122/50
[2023-06-22 12:00] VITALS: BP 141/51
[2023-06-23] MEDS ORDERED: AQUAPHOR OINTMENT Base 50 GM TUBE T SCH (10:00)
== END 2023-06-22 17:17 | disposition home or self-care (01) | DRG 638 ==
LOC: ED 18:29 → EDHOLD 21:28 → ICCU 06-21 18:37
PROVIDERS: Physician Assistant Medical; Student in an Organized Health Care Education/Training Program; ADMIT Internal Medicine; ATTEND Internal Medicine
DX: E10.10 Type 1 diabetes mellitus with ketoacidosis without coma (principal); N39.0 Urinary tract infection, site not specified; E10.49 Type 1 diabetes mellitus with other diabetic neurological complication; I10 Essential (primary) hypertension; E53.8 Deficiency of other specified B group vitamins; E55.9 Vitamin D deficiency, unspecified; E78.5 Hyperlipidemia, unspecified; E86.0 Dehydration; Z90.49 Acquired absence of other specified parts of digestive tract; Z98.51 Tubal ligation status; Z82.5 Family history of asthma and other chronic lower respiratory diseases; Z82.49 Family history of ischemic heart disease and other diseases of the circulatory system; Z88.1 Allergy status to other antibiotic agents; Z88.5 Allergy status to narcotic agent; Z88.8 Allergy status to other drugs, medicaments and biological substances; Z79.82 Long term (current) use of aspirin; Z79.4 Long term (current) use of insulin; Z79.899 Other long term (current) drug therapy

== ENCOUNTER 2023-08-03 22:07 | Emergency (ER) | payer OTHER ==
[~2023-08-03] VITALS: Ht 162.5 cm; Wt 113.4 kg
[2023-08-03] MEDS ORDERED: SODIUM CHLORIDE 0.9% 1,000 ML IV ONE (22:30)
[2023-08-03] MEDS ORDERED: Ondansetron Hydrochloride 4 MG/2 ML VIAL IV ONE (22:30)
[2023-08-03 23:09] LABS: BASO % 0.3 % (0.0-1.0); EOS % 0.1 % (1.0-4.0); HEMATOCRIT 37.4 % (37.0-47.0); LYMPH # 0.8 10*3/uL (1.3-4.4); LYMPH % 8.3 % (27.0-41.0); MEAN CELL VOLUME 89.5 fl (81.0-99.0); MEAN CORPUSCULAR HGB 29.2 pg (27.0-31.0); MEAN CORPUSCULAR HGB CONC 32.6 g/dl (33.0-37.0); MEAN PLATELET VOLUME 10.1 fl (9.6-12.3); MONO # 0.4 10*3/uL (0.1-1.0); MONO % 4.5 % (3.0-9.0); NEUT # 8.3 10*3/uL (2.3-7.9); NEUT % 86.5 % (47.0-73.0); PLATELET COUNT AUTOMATED 254 10*3/uL (130-400); RED BLOOD COUNT 4.18 10*6/uL (4.10-5.10); RED CELL DISTRI WIDTH 12.8 % (0-14.5); WHITE BLOOD COUNT 9.6 10*3/uL (4.8-10.8)
[2023-08-03 23:22] LABS: ACT PARTIAL THROMBO TIME 23.9 SECONDS (20.0-32.1)
[2023-08-03 23:30] LABS: ALKALINE PHOSPHATASE 81 U/L (46-116); BUN 14 mg/dl (9-23); CHLORIDE 108 mmol/L (98-107); LIPASE 20 U/L (12-53); POTASSIUM 3.7 mmol/L (3.4-5.1); SGPT/ALT 10 U/L (5-49); TOTAL PROTEIN 6.9 gm/dL (6.0-8.0)
[2023-08-03] MEDS ORDERED: Meclizine Hydrochloride 25 MG TAB PO ONE (23:40)
[2023-08-04 00:59] LABS: BILIRUBIN Negative (Negative); BLOOD Negative (Negative); CLARITY Clear (Clear); COLOR Yellow (Yellow); GLUCOSE Trace (Negative); KETONE 1+ (Negative); LEUKO ESTERASE Negative (Negative); NITRITE Negative (Negative); SPECIFIC GRAVITY 1.015 (1.001-1.030); UROBILINOGEN 0.2 E.U./dl (0.0-1.0)
[2023-08-04 01:20] LABS: EPITHELIAL CELLS 16-20
[2023-08-04] MEDS ORDERED: Ondansetron4 MG PO ×2 (01:31→09:22)
[2023-08-04] MEDS ORDERED: Ondansetron Hydrochloride 4 MG/2 ML VIAL IV ONE (01:45)
[2023-08-04] MEDS ORDERED: Phenergan25 MG PO (09:22)
== END 2023-08-04 02:43 | disposition home or self-care (01) ==
LOC: ED 22:07
PROVIDERS: Nurse Practitioner Family
DX: R11.2 Nausea with vomiting, unspecified (principal); R42 Dizziness and giddiness; E11.649 Type 2 diabetes mellitus with hypoglycemia without coma; Z79.4 Long term (current) use of insulin; E78.00 Pure hypercholesterolemia, unspecified; E11.40 Type 2 diabetes mellitus with diabetic neuropathy, unspecified

== ENCOUNTER 2023-08-04 06:52 | Emergency (ER) | payer OTHER ==
[~2023-08-04] VITALS: Ht 162.5 cm; Wt 113.4 kg
[~2023-08-04 06:52] MED LIST changes: +Ondansetron4 MG PO
[2023-08-04] MEDS ORDERED: diphenhydrAMINE hydrochloride 50 MG/ML VIAL IV ONE (07:40)
[2023-08-04] MEDS ORDERED: SODIUM CHLORIDE 0.9% 1,000 ML IV ONE (07:40)
[2023-08-04] MEDS ORDERED: Metoclopramide Hydrochloride 10 MG/2 ML AMP IV ONE (07:40)
[2023-08-04] MEDS ORDERED: FAMOTIDINE 50 ML IV ONE (07:40)
[2023-08-04 07:56] LABS: HEMATOCRIT 41.4 % (37.0-47.0); MEAN CELL VOLUME 90.4 fl (81.0-99.0); MEAN CORPUSCULAR HGB 29.3 pg (27.0-31.0); MEAN CORPUSCULAR HGB CONC 32.4 g/dl (33.0-37.0); MEAN PLATELET VOLUME 10.1 fl (9.6-12.3); PLATELET COUNT AUTOMATED 268 10*3/uL (130-400); RED BLOOD COUNT 4.58 10*6/uL (4.10-5.10); RED CELL DISTRI WIDTH 12.9 % (0-14.5); WHITE BLOOD COUNT 16.4 10*3/uL (4.8-10.8)
[2023-08-04 08:03] LABS: MANUAL DIFF REFLEX YES
[2023-08-04 08:26] LABS: BURR CELLS MODERATE; PLATELET SUFFICIENCY NORMAL (NORMAL); POLYCHROMASIA SLIGHT; ROULEAUX SLIGHT; TOTAL CELLS COUNTED 100 #CELLS
[2023-08-04 08:32] LABS: ALKALINE PHOSPHATASE 88 U/L (46-116); BUN 17 mg/dl (9-23); CHLORIDE 106 mmol/L (98-107); POTASSIUM 3.7 mmol/L (3.4-5.1); SGPT/ALT 13 U/L (5-49); TOTAL PROTEIN 7.2 gm/dL (6.0-8.0)
[2023-08-04 09:01] LABS: BILIRUBIN Negative (Negative); BLOOD Negative (Negative); CLARITY Clear (Clear); COLOR Yellow (Yellow); GLUCOSE 3+ (Negative); KETONE 3+ (Negative); LEUKO ESTERASE Negative (Negative); NITRITE Negative (Negative); PH 5.5 (4.5-8.0); SPECIFIC GRAVITY >= 1.030 (1.001-1.030); UROBILINOGEN 0.2 E.U./dl (0.0-1.0)
[2023-08-04] MEDS ORDERED: INSULIN REGULAR, HUMAN 1 UNIT/0.01 ML IV ONE (09:20)
[2023-08-04] MEDS ORDERED: Ondansetron4 MG PO (09:22)
[2023-08-04] MEDS ORDERED: Phenergan25 MG PO (09:22)
[2023-08-04 09:57] LABS: BACTERIA 1+
== END 2023-08-04 09:55 | disposition home or self-care (01) ==
LOC: ED 06:52
PROVIDERS: Emergency Medicine
DX: R11.2 Nausea with vomiting, unspecified (principal); E10.65 Type 1 diabetes mellitus with hyperglycemia; I10 Essential (primary) hypertension; E78.5 Hyperlipidemia, unspecified; E78.00 Pure hypercholesterolemia, unspecified; Z79.4 Long term (current) use of insulin; Z88.8 Allergy status to other drugs, medicaments and biological substances; Z88.1 Allergy status to other antibiotic agents; Z90.49 Acquired absence of other specified parts of digestive tract; Z98.890 Other specified postprocedural states; Z98.51 Tubal ligation status

== ENCOUNTER → 2023-12-26 | Outpatient (CLI) | payer OTHER ==
[~2023-12-26] MED LIST changes: +Phenergan25 MG PO
== END | disposition home or self-care (01) ==
LOC: MAMMO 13:19
PROVIDERS: ATTEND Internal Medicine
DX: Z12.31 Encounter for screening mammogram for malignant neoplasm of breast (principal); M25.572 Pain in left ankle and joints of left foot; M25.472 Effusion, left ankle

== ENCOUNTER 2024-02-05 17:27 | Inpatient (IN) | payer OTHER ==
[~2024-02-05] VITALS: Ht 162.6 cm; Wt 127.0 kg
[2024-02-05] VITALS (9 sets, daily range): BP systolic 11–133; BP diastolic 26–54
[2024-02-05] MEDS ORDERED: SODIUM CHLORIDE 0.9% 1,000 ML IV ONE ×4 (17:35→21:35)
[2024-02-05 18:00] LABS: BILIRUBIN Negative (Negative); BLOOD Trace-Intact (Negative); CLARITY Clear (Clear); COLOR Yellow (Yellow); GLUCOSE 3+ (Negative); KETONE 1+ (Negative); LEUKO ESTERASE Negative (Negative); NITRITE Negative (Negative); SPECIFIC GRAVITY 1.025 (1.001-1.030); UROBILINOGEN 0.2 E.U./dl (0.0-1.0)
[2024-02-05 18:03] LABS: ABG BASE EXCESS -15.1 mmol/L (-2.0-3.0); ARTERIAL BLOOD GAS PH 7.263 (7.350-7.450); ARTERIAL BLOOD GAS PO2 120.9 mmHg (83.0-108.0)
[2024-02-05 18:08] LABS: WBC 0-2 wbc/hpf (0-5)
[2024-02-05 18:11] LABS: URINE AMPHETAMINES Negative (1000ng/ml); URINE BARBITURATES Negative (200ng/ml); URINE BENZODIAZEPINES Negative (200ng/ml); URINE CANNABINOIDS (THC) Negative (50ng/ml); URINE COCAINE Negative (300ng/ml); URINE METHADONE Negative (300ng/ml); URINE OPIATES Negative (300ng/ml); URINE PHENCYCLIDINE Negative (25ng/ml)
[2024-02-05 18:27] LABS: HEMATOCRIT 36.7 % (37.0-47.0); MEAN CELL VOLUME 98.4 fl (81.0-99.0); MEAN CORPUSCULAR HGB 29.5 pg (27.0-31.0); MEAN PLATELET VOLUME 11.5 fl (9.6-12.3); PLATELET COUNT AUTOMATED 287 10*3/uL (130-400); RED BLOOD COUNT 3.73 10*6/uL (4.10-5.10); RED CELL DISTRI WIDTH 13.9 % (0-14.5); WHITE BLOOD COUNT 17.4 10*3/uL (4.8-10.8)
[2024-02-05 18:31] LABS: MANUAL DIFF REFLEX YES
[2024-02-05 18:48] LABS: ALKALINE PHOSPHATASE 99 U/L (46-116); BUN 41 mg/dl (9-23); CHLORIDE 97 mmol/L (98-107); CPK 178 U/L (34-171); ETHYL ALCOHOL < 3.0 mg/dl (<3); POTASSIUM 5.1 mmol/L (3.4-5.1); SGPT/ALT 27 U/L (5-49); TOTAL PROTEIN 6.4 gm/dL (6.0-8.0)
[2024-02-05] MEDS ORDERED: NOREPINEPHRINE BITARTRATE/D5W 250 ML IV SCH (18:55)
[2024-02-05] MEDS ORDERED: INSULIN REGULAR IN 0.9 % NACL 100 ML IV SCH ×2 (19:00→21:35)
[2024-02-05] MEDS ORDERED: INSULIN REGULAR, HUMAN 1 UNIT/0.01 ML IV ONE (19:00)
[2024-02-05 19:02] LABS: PLATELET SUFFICIENCY NORMAL (NORMAL); TOTAL CELLS COUNTED 100 #CELLS
[2024-02-05 19:03] LABS: BURR CELLS FEW; OVALOCYTES FEW
[2024-02-05] MEDS ORDERED: Vancomycin Hydrochloride 250 ML IV ONE ×2 (19:10→21:50)
[2024-02-05] MEDS ORDERED: Piperacillin Sodium/Tazobact 50 ML IV ONE (19:10)
[2024-02-05] MEDS ORDERED: Ketamine Hydrochloride 500 MG/10 ML VIAL IV ONE (19:25)
[2024-02-05] MEDS ORDERED: Midazolam Hydrochloride 5 MG/5 ML VIAL IV ONE (19:55)
[2024-02-05] MEDS ORDERED: ACETAMINOPHEN 325 MG TAB PO PRN (21:30)
[2024-02-05] MEDS ORDERED: Magnesium Hydroxide 30 ML UDC PO PRN (21:30)
[2024-02-05] MEDS ORDERED: BISACODYL 5 MG TAB PO PRN (21:30)
[2024-02-05] MEDS ORDERED: BISACODYL 10 MG SUPP R PRN (21:30)
[2024-02-05] MEDS ORDERED: ACETAMINOPHEN 650 MG SUPP R PRN (21:30)
[2024-02-05] MEDS ORDERED: POTASSIUM CHLORIDE 20 MEQ TAB PO PRN (21:35)
[2024-02-05] MEDS ORDERED: POTASSIUM CHLORIDE 20 MEQ/100 ML BAG IV PRN (21:35)
[2024-02-05] MEDS ORDERED: METRONIDAZOLE 100 ML IV SCH (22:00)
[2024-02-05] MEDS ORDERED: Doxycycline Hyclate 100 MG in SODIUM CHLORIDE 0.9% 250 ML IV SCH (22:00)
[2024-02-05] MEDS ORDERED: Promethazine Hydrochloride 25 MG/ML VIAL IV PRN (22:30)
[2024-02-05] MEDS ORDERED: ASPIRIN 300 MG SUPP R ONE (22:35)
[2024-02-05] MEDS ORDERED: HEPARIN SODIUM 250 ML IV SCH (22:40)
[2024-02-05 22:54] LABS: BUN 50 mg/dl (9-23); CHLORIDE 104 mmol/L (98-107)
[2024-02-05 23:01] LABS: POTASSIUM 3.6 mmol/L (3.4-5.1)
[2024-02-06] VITALS (50 sets, daily range): BP systolic 91–162; BP diastolic 34–66
[2024-02-06] MEDS ORDERED: LORazepam 2 MG/ML VIAL IM ONE (01:10)
[2024-02-06] MEDS ORDERED: LORazepam 2 MG/ML VIAL IV PRN (01:35)
[2024-02-06] MEDS ORDERED: Piperacillin Sodium/Tazobact 2.25 GM in SODIUM CHLORIDE 0.9% 50 ML IV SCH (02:00)
[2024-02-06 02:32] LABS: POTASSIUM 3.5 mmol/L (3.4-5.1)
[2024-02-06] MEDS ORDERED: Lactated Ringer's Solution 1,000 ML IV ONE (03:05)
[2024-02-06] MEDS ORDERED: DEXTROSE 5% SALINE 0.45% 1,000 ML IV SCH (05:20)
[2024-02-06 05:58] LABS: FREE T4 0.83 ng/dl (0.89-1.76)
[2024-02-06 06:39] LABS: HEMATOCRIT 32.6 % (37.0-47.0); MEAN CORPUSCULAR HGB 29.2 pg (27.0-31.0); MEAN CORPUSCULAR HGB CONC 32.2 g/dl (33.0-37.0); MEAN PLATELET VOLUME 10.5 fl (9.6-12.3); PLATELET COUNT AUTOMATED 343 10*3/uL (130-400); RED BLOOD COUNT 3.59 10*6/uL (4.10-5.10); RED CELL DISTRI WIDTH 13.5 % (0-14.5); WHITE BLOOD COUNT 20.5 10*3/uL (4.8-10.8)
[2024-02-06 06:56] LABS: MANUAL DIFF REFLEX YES; MEAN CELL VOLUME 90.8 fl (81.0-99.0)
[2024-02-06 07:19] LABS: TOTAL CELLS COUNTED 100 #CELLS
[2024-02-06 07:20] LABS: PLATELET SUFFICIENCY NORMAL (NORMAL); POLYCHROMASIA SLIGHT
[2024-02-06 08:11] LABS: VITAMIN D, 25-HYDROXY 30.2 ng/mL (30-100)
[2024-02-06] MEDS ORDERED: DEXMEDETOMIDINE IN 0.9 % NACL 100 ML IV SCH (09:35)
[2024-02-06] MEDS ORDERED: ASPIRIN ENTERIC COATED 81 MG TAB PO SCH (10:00)
[2024-02-06] MEDS ORDERED: ATORVASTATIN CALCIUM 40 MG TABLET PO SCH (10:00)
[2024-02-06 10:04] LABS: POTASSIUM 4.4 mmol/L (3.4-5.1)
[2024-02-06] MEDS ORDERED: LORazepam 2 MG/ML VIAL ONE (11:39)
[2024-02-06] MEDS ORDERED: SODIUM CHLORIDE 0.9% 2,000 ML IV ONE (13:04)
[2024-02-07] MEDS ORDERED: VANCOMYCIN/WATER FOR INJ (PEG) 400 ML IV SCH (10:00)
== END 2024-02-06 16:07 | disposition short-term general hospital (02) | DRG 871 ==
LOC: ED 17:27 → EDHOLD 21:06 → ICCU 21:06
PROVIDERS: Nurse Practitioner Family; ADMIT Internal Medicine; ATTEND Internal Medicine
PROC: 02HV33Z Insertion of Infusion Device into Superior Vena Cava, Percutaneous Approach (ICD-10-PCS; principal; 2024-02-05)
PROC: B548ZZA Ultrasonography of Superior Vena Cava, Guidance (ICD-10-PCS; 2024-02-05)
DX: A41.9 Sepsis, unspecified organism (principal); E11.10 Type 2 diabetes mellitus with ketoacidosis without coma; G93.41 Metabolic encephalopathy; J96.01 Acute respiratory failure with hypoxia; R65.21 Severe sepsis with septic shock; N17.0 Acute kidney failure with tubular necrosis; I21.4 Non-ST elevation (NSTEMI) myocardial infarction; N18.4 Chronic kidney disease, stage 4 (severe); E87.0 Hyperosmolality and hypernatremia; D50.9 Iron deficiency anemia, unspecified; E11.22 Type 2 diabetes mellitus with diabetic chronic kidney disease; E11.40 Type 2 diabetes mellitus with diabetic neuropathy, unspecified; I12.9 Hypertensive chronic kidney disease with stage 1 through stage 4 chronic kidney disease, or unspecified chronic kidney disease; Z20.822 Contact with and (suspected) exposure to COVID-19; E55.9 Vitamin D deficiency, unspecified; E78.5 Hyperlipidemia, unspecified; Z79.4 Long term (current) use of insulin; Z82.5 Family history of asthma and other chronic lower respiratory diseases; Z82.49 Family history of ischemic heart disease and other diseases of the circulatory system; Z88.1 Allergy status to other antibiotic agents; Z88.8 Allergy status to other drugs, medicaments and biological substances; Z79.899 Other long term (current) drug therapy; Z90.49 Acquired absence of other specified parts of digestive tract; Z98.51 Tubal ligation status; Z79.82 Long term (current) use of aspirin

== ENCOUNTER 2024-02-13 12:32 | Inpatient (IN) | payer OTHER ==
[~2024-02-13] VITALS: Ht 162.6 cm; Wt 113.6 kg
[2024-02-13] MEDS ORDERED: SODIUM CHLORIDE 0.9% 1,000 ML IV ONE (13:00)
[2024-02-13] MEDS ORDERED: Ondansetron Hydrochloride 4 MG/2 ML VIAL IV ONE (13:00)
[2024-02-13] MEDS ORDERED: INSULIN REGULAR, HUMAN 1 UNIT/0.01 ML IV ONE (13:00)
[2024-02-13 14:07] LABS: BILIRUBIN Negative (Negative); BLOOD Negative (Negative); CLARITY Clear (Clear); COLOR Yellow (Yellow); GLUCOSE 3+ (Negative); KETONE 1+ (Negative); LEUKO ESTERASE Negative (Negative); NITRITE Negative (Negative); PH 5.5 (4.5-8.0); SPECIFIC GRAVITY >= 1.030 (1.001-1.030); UROBILINOGEN 0.2 E.U./dl (0.0-1.0)
[2024-02-13 14:18] LABS: EPITHELIAL CELLS 21-30; RBC 0-2 rbc/hpf (0-2); WBC 0-2 wbc/hpf (0-5)
[2024-02-13 14:38] LABS: BASO % 0.4 % (0.0-1.0); HEMATOCRIT 38.2 % (37.0-47.0); MEAN CELL VOLUME 92.9 fl (81.0-99.0); MEAN CORPUSCULAR HGB 29.7 pg (27.0-31.0); MEAN CORPUSCULAR HGB CONC 31.9 g/dl (33.0-37.0); MEAN PLATELET VOLUME 11.1 fl (9.6-12.3); MONO # 0.5 10*3/uL (0.1-1.0); MONO % 7.1 % (3.0-9.0); NEUT % 80.6 % (47.0-73.0); PLATELET COUNT AUTOMATED 263 10*3/uL (130-400); RED BLOOD COUNT 4.11 10*6/uL (4.10-5.10); RED CELL DISTRI WIDTH 13.5 % (0-14.5); WHITE BLOOD COUNT 7.4 10*3/uL (4.8-10.8)
[2024-02-13 14:45] LABS: VENOUS BLOOD GAS O2 SAT 91.1 % (60.0-85.0)
[2024-02-13 15:14] LABS: POTASSIUM 4.8 mmol/L (3.4-5.1); TOTAL PROTEIN 7.5 gm/dL (6.0-8.0)
[2024-02-13 17:11] LABS: ACT PARTIAL THROMBO TIME 23.6 SECONDS (20.0-32.1)
[2024-02-13] MEDS ORDERED: SODIUM CHLORIDE 0.9% 1,000 ML IV SCH (18:55)
[2024-02-13 19:43] LABS: BUN 11 mg/dl (9-23); CHLORIDE 104 mmol/L (98-107)
[2024-02-13 19:44] LABS: POTASSIUM 3.7 mmol/L (3.4-5.1)
[2024-02-13] MEDS ORDERED: POTASSIUM CHLORIDE 20 MEQ TAB PO ONE (20:15)
[2024-02-13] MEDS ORDERED: MIX SC ONE (20:25)
[2024-02-13] MEDS ORDERED: INSULIN NOVOLOG SC ONE (20:25)
[2024-02-13 20:34] VITALS: BP 138/74
[2024-02-13] MEDS ORDERED: GABAPENTIN 600 MG TAB PO SCH (22:00)
[2024-02-13] MEDS ORDERED: ATORVASTATIN CALCIUM 40 MG TABLET PO SCH (22:00)
[2024-02-13] MEDS ORDERED: Oxybutynin Chloride 5 MG TAB PO SCH (22:00)
[2024-02-13] MEDS ORDERED: Pantoprazole Sodium 40 MG TAB PO SCH (22:00)
[2024-02-13] MEDS ORDERED: ASPIRIN, CHEWABLE 81 MG TAB PO SCH (22:00)
[2024-02-13] MEDS ORDERED: INSULIN NPH HUM/REG INSULIN HM 1 UNIT/0.01 ML SC ONE (23:25)
[2024-02-14 00:42] LABS: BUN 12 mg/dl (9-23); CHLORIDE 102 mmol/L (98-107); POTASSIUM 4.1 mmol/L (3.4-5.1)
[2024-02-14 01:37] VITALS: BP 124/70
[2024-02-14] MEDS ORDERED: ACETAMINOPHEN 325 MG TAB PO PRN (04:35)
[2024-02-14 06:04] VITALS: BP 134/59
[2024-02-14 06:50] LABS: BASO % 0.2 % (0.0-1.0); HEMATOCRIT 31.9 % (37.0-47.0); MEAN CELL VOLUME 92.2 fl (81.0-99.0); MEAN CORPUSCULAR HGB 29.5 pg (27.0-31.0); MONO # 0.8 10*3/uL (0.1-1.0); MONO % 7.7 % (3.0-9.0); NEUT # 7.9 10*3/uL (2.3-7.9); NEUT % 76.3 % (47.0-73.0); PLATELET COUNT AUTOMATED 243 10*3/uL (130-400); RED BLOOD COUNT 3.46 10*6/uL (4.10-5.10); RED CELL DISTRI WIDTH 13.9 % (0-14.5); WHITE BLOOD COUNT 10.3 10*3/uL (4.8-10.8)
[2024-02-14 07:13] LABS: ALKALINE PHOSPHATASE 104 U/L (46-116); BUN 12 mg/dl (9-23); CHLORIDE 104 mmol/L (98-107); POTASSIUM 4.2 mmol/L (3.4-5.1); SGPT/ALT 63 U/L (5-49); TOTAL PROTEIN 5.8 gm/dL (6.0-8.0)
[2024-02-14] MEDS ORDERED: Sertraline Hydrochloride 50 MG TAB PO SCH (10:00)
[2024-02-14] MEDS ORDERED: Enoxaparin Sodium 40 MG/0.4 ML SYR SC SCH (10:00)
[2024-02-14] MEDS ORDERED: LISINOPRIL 20 MG TAB PO SCH (10:00)
[2024-02-14] MEDS ORDERED: INSULIN NPH HUM/REG INSULIN HM 1 UNIT/0.01 ML SC ONE (13:45)
[2024-02-14] MEDS ORDERED: DEXTROSE 50% 25 GM/50 ML VIAL IV PRN (13:45)
[2024-02-14] MEDS ORDERED: INSULIN REGULAR, HUMAN 1 UNIT/0.01 ML SC SCH (16:30)
[2024-02-14] MEDS ORDERED: Insulin Glargine, Recombinan 1 UNIT/0.01 ML SC ONE (17:10)
[2024-02-14] MEDS ORDERED: INSULIN LISPRO 1 UNIT/0.01 ML SQ ONE (17:10)
[2024-02-14 17:52] VITALS: BP 158/84
[2024-02-14 19:42] VITALS: BP 149/73
[2024-02-14 22:18] VITALS: BP 154/60
[2024-02-15 01:00] VITALS: BP 120/64
[2024-02-15] MEDS ORDERED: Lopressor25 MG PO (01:26)
[2024-02-15] MEDS ORDERED: LANTUS100 UNIT/1 SQ (01:27)
[2024-02-15 08:00] VITALS: BP 146/866
[2024-02-15] MEDS ORDERED: Insulin Glargine, Recombinan 1 UNIT/0.01 ML SC ONE (11:00)
[2024-02-15 11:54] VITALS: BP 130/50
[2024-02-15] MEDS ORDERED: INSULIN NPH HUM/REG INSULIN HM 1 UNIT/0.01 ML SC SCH (16:00)
== END 2024-02-15 15:03 | disposition home or self-care (01) | DRG 638 ==
LOC: ED 12:32 → EDHOLD 18:10 → 4E 18:10 → ICCU 19:42 → EDHOLD 20:22 → 4E 02-14 23:45
PROVIDERS: Internal Medicine; ADMIT Internal Medicine; ATTEND Internal Medicine
DX: E11.10 Type 2 diabetes mellitus with ketoacidosis without coma (principal); N18.4 Chronic kidney disease, stage 4 (severe); E11.40 Type 2 diabetes mellitus with diabetic neuropathy, unspecified; E53.8 Deficiency of other specified B group vitamins; E55.9 Vitamin D deficiency, unspecified; G43.909 Migraine, unspecified, not intractable, without status migrainosus; K58.9 Irritable bowel syndrome, unspecified; F51.01 Primary insomnia; E78.5 Hyperlipidemia, unspecified; E11.22 Type 2 diabetes mellitus with diabetic chronic kidney disease; I12.9 Hypertensive chronic kidney disease with stage 1 through stage 4 chronic kidney disease, or unspecified chronic kidney disease; I25.2 Old myocardial infarction; Z90.49 Acquired absence of other specified parts of digestive tract; Z98.51 Tubal ligation status; Z82.5 Family history of asthma and other chronic lower respiratory diseases; Z82.49 Family history of ischemic heart disease and other diseases of the circulatory system; Z83.3 Family history of diabetes mellitus; Z88.1 Allergy status to other antibiotic agents; Z88.8 Allergy status to other drugs, medicaments and biological substances; Z88.5 Allergy status to narcotic agent; Z79.82 Long term (current) use of aspirin; Z79.4 Long term (current) use of insulin; Z79.899 Other long term (current) drug therapy

== ENCOUNTER 2024-02-17 13:02 | Inpatient (IN) | payer OTHER ==
[~2024-02-17] VITALS: Ht 162.5 cm; Wt 120.3 kg
[~2024-02-17 13:02] MED LIST changes: +INSULIN NPH HUM/REG INSULIN HM 1 UNIT/0.01 ML SC ONE; +LANTUS100 UNIT/1 SQ; +Lopressor25 MG PO
[2024-02-17 13:12] VITALS: BP 142/58
[2024-02-17] MEDS ORDERED: SODIUM CHLORIDE 0.9% 1,000 ML IV ONE ×2 (13:30→17:05)
[2024-02-17 14:19] LABS: BILIRUBIN Negative (Negative); BLOOD Negative (Negative); CLARITY Clear (Clear); COLOR Yellow (Yellow); GLUCOSE 3+ (Negative); KETONE Trace (Negative); LEUKO ESTERASE Negative (Negative); NITRITE Negative (Negative); SPECIFIC GRAVITY 1.025 (1.001-1.030); UROBILINOGEN 0.2 E.U./dl (0.0-1.0)
[2024-02-17 14:31] LABS: BASO # 0.1 10*3/uL (0.0-0.1); BASO % 0.4 % (0.0-1.0); EOS % 0.1 % (1.0-4.0); HEMATOCRIT 33.9 % (37.0-47.0); MEAN CELL VOLUME 93.1 fl (81.0-99.0); MEAN CORPUSCULAR HGB 29.7 pg (27.0-31.0); MEAN CORPUSCULAR HGB CONC 31.9 g/dl (33.0-37.0); MEAN PLATELET VOLUME 10.6 fl (9.6-12.3); MONO # 0.8 10*3/uL (0.1-1.0); MONO % 4.8 % (3.0-9.0); NEUT # 14.4 10*3/uL (2.3-7.9); NEUT % 87.5 % (47.0-73.0); PLATELET COUNT AUTOMATED 274 10*3/uL (130-400); RED BLOOD COUNT 3.64 10*6/uL (4.10-5.10); RED CELL DISTRI WIDTH 14.1 % (0-14.5); WHITE BLOOD COUNT 16.4 10*3/uL (4.8-10.8)
[2024-02-17 14:32] LABS: BACTERIA TRACE; EPITHELIAL CELLS 16-20; WBC 0-2 wbc/hpf (0-5); YEAST TRACE
[2024-02-17 14:44] LABS: VENOUS BLOOD GAS O2 SAT 98.4 % (60.0-85.0)
[2024-02-17 14:55] LABS: ALKALINE PHOSPHATASE 108 U/L (46-116); BUN 9 mg/dl (9-23); CHLORIDE 102 mmol/L (98-107); LIPASE 27 U/L (12-53); POTASSIUM 3.8 mmol/L (3.4-5.1); SGPT/ALT 37 U/L (5-49); TOTAL PROTEIN 6.2 gm/dL (6.0-8.0)
[2024-02-17] MEDS ORDERED: INSULIN REGULAR, HUMAN 1 UNIT/0.01 ML IV ONE (15:10)
[2024-02-17] MEDS ORDERED: Ciprofloxacin Hydrochloride 500 MG TAB PO ONE (15:20)
[2024-02-17] MEDS ORDERED: METRONIDAZOLE 500 MG TAB PO ONE (15:20)
[2024-02-17] MEDS ORDERED: VANCOMYCIN HCL 250 MG CAPSULE PO SCH (18:00)
[2024-02-17 19:32] VITALS: BP 147/55
[2024-02-17] MEDS ORDERED: Insulin Glargine, Recombinan 1 UNIT/0.01 ML SC SCH (22:00)
[2024-02-17] MEDS ORDERED: GABAPENTIN 600 MG TAB PO SCH (22:00)
[2024-02-17] MEDS ORDERED: Oxybutynin Chloride 5 MG TAB PO SCH (22:00)
[2024-02-17] MEDS ORDERED: Metoprolol Tartrate 25 MG TAB PO SCH (22:00)
[2024-02-17] MEDS ORDERED: ASPIRIN, CHEWABLE 81 MG TAB PO SCH (22:00)
[2024-02-17] MEDS ORDERED: Pantoprazole Sodium 40 MG TAB PO SCH (22:00)
[2024-02-17] MEDS ORDERED: Melatonin 5 MG TABLET PO SCH (22:00)
[2024-02-17] MEDS ORDERED: ATORVASTATIN CALCIUM 40 MG TABLET PO SCH (22:00)
[2024-02-18 05:35] VITALS: BP 149/57
[2024-02-18 08:00] VITALS: BP 149/54
[2024-02-18] MEDS ORDERED: Menthol/Zinc Oxide 4 GM THIN T PRN (09:45)
[2024-02-18] MEDS ORDERED: ACETAMINOPHEN 325 MG TAB PO PRN (09:45)
[2024-02-18] MEDS ORDERED: DEXTROSE 10 % IN WATER 250 ML IV PRN (09:50)
[2024-02-18] MEDS ORDERED: DEXTROSE 50% 25 GM/50 ML VIAL IV PRN (09:50)
[2024-02-18] MEDS ORDERED: Menthol/Zinc Oxide 4 GM THIN T SCH (10:00)
[2024-02-18] MEDS ORDERED: Sertraline Hydrochloride 50 MG TAB PO SCH (10:00)
[2024-02-18] MEDS ORDERED: LISINOPRIL 20 MG TAB PO SCH (10:00)
[2024-02-18] MEDS ORDERED: Enoxaparin Sodium 40 MG/0.4 ML SYR SC SCH (10:00)
[2024-02-18] MEDS ORDERED: INSULIN REGULAR, HUMAN 1 UNIT/0.01 ML SC SCH (11:30)
[2024-02-18 17:00] VITALS: BP 144/68
[2024-02-18] MEDS ORDERED: SODIUM CHLORIDE 0.9% 1,000 ML IV SCH (17:00)
[2024-02-18 17:08] VITALS: BP 153/50
[2024-02-18] MEDS ORDERED: METRONIDAZOLE 100 ML IV SCH (18:00)
[2024-02-18] MEDS ORDERED: INSULIN LISPRO 1 UNIT/0.01 ML SQ SCH (22:00)
[2024-02-18] MEDS ORDERED: Insulin Glargine, Recombinan 1 UNIT/0.01 ML SC SCH (22:00)
[2024-02-18 22:23] VITALS: BP 149/57
[2024-02-19 06:01] VITALS: BP 144/79
[2024-02-19 06:33] LABS: HEMATOCRIT 32.7 % (37.0-47.0); MEAN CELL VOLUME 93.2 fl (81.0-99.0); MEAN CORPUSCULAR HGB 29.3 pg (27.0-31.0); MEAN CORPUSCULAR HGB CONC 31.5 g/dl (33.0-37.0); MEAN PLATELET VOLUME 10.5 fl (9.6-12.3); PLATELET COUNT AUTOMATED 295 10*3/uL (130-400); RED BLOOD COUNT 3.51 10*6/uL (4.10-5.10); RED CELL DISTRI WIDTH 14.1 % (0-14.5); WHITE BLOOD COUNT 8.6 10*3/uL (4.8-10.8)
[2024-02-19 06:41] LABS: MANUAL DIFF REFLEX YES
[2024-02-19 07:09] LABS: ALKALINE PHOSPHATASE 85 U/L (46-116); BUN 6 mg/dl (9-23); CHLORIDE 107 mmol/L (98-107); SGPT/ALT 25 U/L (5-49); TOTAL PROTEIN 5.4 gm/dL (6.0-8.0)
[2024-02-19 08:00] VITALS: BP 153/59
[2024-02-19 08:04] LABS: BASOPHILS 1 % (0-1); BURR CELLS FEW; OVALOCYTES FEW; PLATELET SUFFICIENCY NORMAL (NORMAL); POLYCHROMASIA SLIGHT; ROULEAUX SLIGHT; SCHISTOCYTES FEW; TOTAL CELLS COUNTED 100 #CELLS
[2024-02-19 08:37] VITALS: BP 153/59
[2024-02-19] MEDS ORDERED: LISINOPRIL 10 MG TAB PO SCH (10:00)
[2024-02-19 11:42] VITALS: BP 128/75
[2024-02-19 20:00] VITALS: BP 144/65
[2024-02-19 20:30] VITALS: BP 144/68
[2024-02-20] VITALS: BP 145/64
[2024-02-20 08:00] VITALS: BP 147/69
[2024-02-20 11:33] VITALS: BP 150/72
[2024-02-20] MEDS ORDERED: VANCOCIN250 M1 PO (13:45)
== END 2024-02-20 14:49 | disposition home or self-care (01) | DRG 371 ==
LOC: ED 13:02 → EDHOLD 15:27 → 4E 15:27 → EDHOLD 02-18 19:40 → 4E 02-19 16:09
PROVIDERS: Nurse Practitioner Family; ADMIT Internal Medicine; ATTEND Internal Medicine
DX: A04.72 Enterocolitis due to Clostridium difficile, not specified as recurrent (principal); E11.10 Type 2 diabetes mellitus with ketoacidosis without coma; E44.0 Moderate protein-calorie malnutrition; N18.4 Chronic kidney disease, stage 4 (severe); Z68.42 Body mass index [BMI] 45.0-49.9, adult; D72.829 Elevated white blood cell count, unspecified; E53.8 Deficiency of other specified B group vitamins; G43.909 Migraine, unspecified, not intractable, without status migrainosus; E11.65 Type 2 diabetes mellitus with hyperglycemia; E11.22 Type 2 diabetes mellitus with diabetic chronic kidney disease; E55.9 Vitamin D deficiency, unspecified; D50.9 Iron deficiency anemia, unspecified; F51.01 Primary insomnia; E78.5 Hyperlipidemia, unspecified; I12.9 Hypertensive chronic kidney disease with stage 1 through stage 4 chronic kidney disease, or unspecified chronic kidney disease; E11.40 Type 2 diabetes mellitus with diabetic neuropathy, unspecified; Z88.1 Allergy status to other antibiotic agents; Z88.8 Allergy status to other drugs, medicaments and biological substances; I25.2 Old myocardial infarction; Z83.6 Family history of other diseases of the respiratory system; Z82.49 Family history of ischemic heart disease and other diseases of the circulatory system

== ENCOUNTER 2024-03-24 12:05 | Emergency (ER) | payer OTHER ==
[~2024-03-24] VITALS: Ht 162.5 cm; Wt 106.6 kg
[~2024-03-24 12:05] MED LIST changes: -INSULIN NPH HUM/REG INSULIN HM 1 UNIT/0.01 ML SC ONE; +VANCOCIN250 M1 PO
[2024-03-24] MEDS ORDERED: Metoclopramide Hydrochloride 10 MG/2 ML VIAL IV ONE (15:30)
[2024-03-24] MEDS ORDERED: Ketorolac Tromethamine 15 MG/ML VIAL IV ONE (15:30)
[2024-03-24] MEDS ORDERED: diphenhydrAMINE hydrochloride 50 MG/ML VIAL IV ONE (15:30)
[2024-03-24 15:50] LABS: BASO % 0.4 % (0.0-1.0); HEMATOCRIT 41.9 % (37.0-47.0); MEAN CELL VOLUME 92.7 fl (81.0-99.0); MEAN CORPUSCULAR HGB 29.4 pg (27.0-31.0); MEAN CORPUSCULAR HGB CONC 31.7 g/dl (33.0-37.0); MEAN PLATELET VOLUME 10.1 fl (9.6-12.3); MONO # 0.5 10*3/uL (0.1-1.0); MONO % 8.9 % (3.0-9.0); NEUT # 4.3 10*3/uL (2.3-7.9); NEUT % 81.6 % (47.0-73.0); PLATELET COUNT AUTOMATED 216 10*3/uL (130-400); RED BLOOD COUNT 4.52 10*6/uL (4.10-5.10); RED CELL DISTRI WIDTH 13.2 % (0-14.5); WHITE BLOOD COUNT 5.3 10*3/uL (4.8-10.8)
[2024-03-24 16:05] LABS: BUN 9 mg/dl (9-23); CHLORIDE 102 mmol/L (98-107); POTASSIUM 3.5 mmol/L (3.4-5.1)
[2024-03-24] MEDS ORDERED: AMOX-CLAV 875-1 EACH PO (17:20)
== END 2024-03-24 17:30 | disposition home or self-care (01) ==
LOC: ED 12:05
PROVIDERS: Emergency Medicine
DX: J40 Bronchitis, not specified as acute or chronic (principal); Z20.822 Contact with and (suspected) exposure to COVID-19; R51.9 Headache, unspecified; R11.2 Nausea with vomiting, unspecified; R42 Dizziness and giddiness; I10 Essential (primary) hypertension; E78.5 Hyperlipidemia, unspecified; E78.00 Pure hypercholesterolemia, unspecified; E11.40 Type 2 diabetes mellitus with diabetic neuropathy, unspecified; Z79.4 Long term (current) use of insulin; Z88.8 Allergy status to other drugs, medicaments and biological substances; Z88.5 Allergy status to narcotic agent; Z88.1 Allergy status to other antibiotic agents; Z90.49 Acquired absence of other specified parts of digestive tract; Z98.890 Other specified postprocedural states

== ENCOUNTER → 2024-03-27 | Outpatient (CLI) | payer OTHER ==
[~2024-03-27] MED LIST changes: +AMOX-CLAV 875-1 EACH PO
== END | disposition home or self-care (01) ==
LOC: RAD 11:47
PROVIDERS: ATTEND Internal Medicine
DX: J45.909 Unspecified asthma, uncomplicated (principal); R05.9 Cough, unspecified

== ENCOUNTER → 2024-04-05 | Outpatient (CLI) | payer OTHER | END | disposition home or self-care (01) | LOC: LAB 14:05 | PROVIDERS: ATTEND Internal Medicine | DX: R19.7 Diarrhea, unspecified (principal) ==

== ENCOUNTER → 2024-04-09 | Outpatient (CLI) | payer OTHER ==
[~2024-04-09] MED LIST changes: +Regadenoson 0.4 MG/5 ML SYR IV ONE
== END | disposition home or self-care (01) ==
LOC: CARD 03:23
PROVIDERS: ATTEND Internal Medicine Cardiovascular Disease
DX: I21.4 Non-ST elevation (NSTEMI) myocardial infarction (principal)

== ENCOUNTER → 2024-06-04 | Outpatient (CLI) | payer OTHER ==
[~2024-06-04] MED LIST changes: -Regadenoson 0.4 MG/5 ML SYR IV ONE
[2024-06-04 14:35] LABS: ALKALINE PHOSPHATASE 74 U/L (46-116); BUN 18 mg/dl (9-23); CHLORIDE 104 mmol/L (98-107); CHOLESTEROL 129 mg/dL (<200); LDL CHOLESTEROL 55 mg/dL (9-159); POTASSIUM 4.3 mmol/L (3.4-5.1); SGPT/ALT 16 U/L (5-49); TOTAL PROTEIN 6.8 gm/dL (6.0-8.0); TRIGLYCERIDES 123 mg/dl (<150)
== END | disposition home or self-care (01) ==
LOC: LAB 13:39
PROVIDERS: Student in an Organized Health Care Education/Training Program; ATTEND Internal Medicine Endocrinology, Diabetes & Metabolism
DX: E11.10 Type 2 diabetes mellitus with ketoacidosis without coma (principal)

== ENCOUNTER 2024-09-30 18:13 | Inpatient (IN) | payer OTHER ==
[~2024-09-30] VITALS: Ht 162.5 cm; Wt 113.5 kg
[2024-09-30 09:30] VITALS: BP 154/76
[2024-09-30 18:22] VITALS: BP 146/88
[2024-09-30 19:36] LABS: BASO # 0.0 10*3/uL (0.0-0.1); BASO % 0.5 % (0.0-1.0); EOS # 0.2 10*3/uL (0.0-0.4); EOS % 2.7 % (1.0-4.0); MEAN CELL VOLUME 90.3 fl (81.0-99.0); MEAN CORPUSCULAR HGB 29.3 pg (27.0-31.0); MEAN PLATELET VOLUME 10.2 fl (9.6-12.3); MONO # 0.6 10*3/uL (0.1-1.0); MONO % 8.8 % (3.0-9.0); NEUT # 4.0 10*3/uL (2.3-7.9); NEUT % 64.7 % (47.0-73.0); NUCLEATED RED BLOOD CELL 0.0 % (0.0-0.0); NUCLEATED RED BLOOD CELL 0.0 10*3/uL (0.0-0.0); PLATELET COUNT AUTOMATED 212 10*3/uL (130-400); RED CELL DISTRI WIDTH 13.0 % (0-14.5)
[2024-09-30] MEDS ORDERED: SODIUM CHLORIDE 0.9% 500 ML IV ONE (19:40)
[2024-09-30 20:13] LABS: BUN 27.0 mg/dl (9-23)
[2024-09-30] MEDS ORDERED: INSULIN REGULAR, HUMAN 1 UNIT/0.01 ML IV ONE (20:25)
[2024-09-30 20:57] LABS: BILIRUBIN Negative (Negative); BLOOD Negative (Negative); CLARITY Clear (Clear); COLOR Yellow (Yellow); KETONE Negative (Negative); LEUKO ESTERASE Negative (Negative); NITRITE Negative (Negative); PH 6.0 (4.5-8.0); SPECIFIC GRAVITY 1.020 (1.001-1.030); UROBILINOGEN 0.2 E.U./dl (0.0-1.0)
[2024-09-30 21:20] LABS: BACTERIA TRACE
[2024-09-30] MEDS ORDERED: ACETAMINOPHEN 325 MG TAB PO PRN (21:40)
[2024-09-30] MEDS ORDERED: BISACODYL 5 MG TAB PO PRN (21:40)
[2024-09-30] MEDS ORDERED: Ondansetron Hydrochloride 4 MG/2 ML VIAL IV PRN (21:40)
[2024-09-30] MEDS ORDERED: BISACODYL 10 MG SUPP R PRN (21:40)
[2024-09-30] MEDS ORDERED: TEMAZEPAM 15 MG CAP PO PRN (21:40)
[2024-09-30] MEDS ORDERED: ACETAMINOPHEN 650 MG SUPP R PRN (21:40)
[2024-09-30] MEDS ORDERED: SODIUM CHLORIDE 0.9% 1,000 ML IV ONE (21:50)
[2024-09-30] MEDS ORDERED: ASPIRIN, CHEWABLE 81 MG TAB PO SCH (22:00)
[2024-09-30] MEDS ORDERED: GABAPENTIN 600 MG TAB PO SCH (22:00)
[2024-09-30] MEDS ORDERED: ATORVASTATIN CALCIUM 40 MG TABLET PO SCH (22:00)
[2024-09-30 23:17] VITALS: BP 135/68
[2024-10-01 04:13] VITALS: BP 121/57
[2024-10-01 06:27] LABS: BASO # 0.0 10*3/uL (0.0-0.1); BASO % 0.7 % (0.0-1.0); EOS # 0.2 10*3/uL (0.0-0.4); EOS % 3.0 % (1.0-4.0); MEAN CELL VOLUME 89.9 fl (81.0-99.0); MEAN CORPUSCULAR HGB 29.0 pg (27.0-31.0); MEAN PLATELET VOLUME 10.7 fl (9.6-12.3); MONO # 0.5 10*3/uL (0.1-1.0); MONO % 9.3 % (3.0-9.0); NEUT # 3.4 10*3/uL (2.3-7.9); NEUT % 60.6 % (47.0-73.0); NUCLEATED RED BLOOD CELL 0.0 % (0.0-0.0); NUCLEATED RED BLOOD CELL 0.0 10*3/uL (0.0-0.0); PLATELET COUNT AUTOMATED 209 10*3/uL (130-400); RED CELL DISTRI WIDTH 13.1 % (0-14.5)
[2024-10-01 06:57] LABS: SGPT/ALT 15 U/L (5-49)
[2024-10-01 06:59] LABS: BUN 17 mg/dl (9-23)
[2024-10-01 12:00] VITALS: BP 146/62
[2024-10-01 16:00] VITALS: BP 131/54
== END 2024-10-01 18:00 | disposition home or self-care (01) | DRG 73 ==
LOC: ED 18:13 → 5E 20:42 → EDHOLD 20:42 → 5E 10-01 07:01
PROVIDERS: Nurse Practitioner Family; ADMIT Internal Medicine; ATTEND Internal Medicine
DX: G90.9 Disorder of the autonomic nervous system, unspecified (principal); N17.0 Acute kidney failure with tubular necrosis; E87.20 Acidosis, unspecified; N18.4 Chronic kidney disease, stage 4 (severe); I95.1 Orthostatic hypotension; E11.42 Type 2 diabetes mellitus with diabetic polyneuropathy; E11.65 Type 2 diabetes mellitus with hyperglycemia; E78.5 Hyperlipidemia, unspecified; K21.9 Gastro-esophageal reflux disease without esophagitis; I12.9 Hypertensive chronic kidney disease with stage 1 through stage 4 chronic kidney disease, or unspecified chronic kidney disease; E11.22 Type 2 diabetes mellitus with diabetic chronic kidney disease; G43.909 Migraine, unspecified, not intractable, without status migrainosus; D64.9 Anemia, unspecified; E55.9 Vitamin D deficiency, unspecified; F51.01 Primary insomnia; K58.9 Irritable bowel syndrome, unspecified; Z79.4 Long term (current) use of insulin; Z88.1 Allergy status to other antibiotic agents; Z88.8 Allergy status to other drugs, medicaments and biological substances; Z91.09 Other allergy status, other than to drugs and biological substances; Z79.899 Other long term (current) drug therapy; Z79.01 Long term (current) use of anticoagulants; Z79.2 Long term (current) use of antibiotics; Z90.49 Acquired absence of other specified parts of digestive tract; Z82.5 Family history of asthma and other chronic lower respiratory diseases; Z82.49 Family history of ischemic heart disease and other diseases of the circulatory system; Z83.3 Family history of diabetes mellitus; Z80.8 Family history of malignant neoplasm of other organs or systems

== ENCOUNTER 2025-01-06 19:18 | Emergency (ER) | payer OTHER ==
[~2025-01-06] VITALS: Ht 167.6 cm; Wt 108.9 kg
[2025-01-06] MEDS ORDERED: SODIUM CHLORIDE 0.9% 1,000 ML IV ONE (19:35)
[2025-01-06] MEDS ORDERED: Ondansetron Hydrochloride 4 MG/2 ML VIAL IV ONE (19:35)
[2025-01-06 19:50] LABS: MEAN CELL VOLUME 91.3 fl (81.0-99.0); MEAN CORPUSCULAR HGB 29.2 pg (27.0-31.0); MEAN PLATELET VOLUME 10.7 fl (9.6-12.3); NUCLEATED RED BLOOD CELL 0.0 % (0.0-0.0); NUCLEATED RED BLOOD CELL 0.0 10*3/uL (0.0-0.0); PLATELET COUNT AUTOMATED 237 10*3/uL (130-400); RED CELL DISTRI WIDTH 12.5 % (0-14.5)
[2025-01-06 19:51] LABS: MANUAL DIFF REFLEX YES
[2025-01-06 20:18] LABS: BUN 23.0 mg/dl (9-23); SGPT/ALT 16.0 U/L (5-49)
[2025-01-06 20:45] LABS: PLATELET SUFFICIENCY NORMAL (NORMAL)
[2025-01-06 20:51] LABS: COLOR Yellow (Yellow)
[2025-01-06 20:52] LABS: BILIRUBIN Negative (Negative); BLOOD Negative (Negative); CLARITY Clear (Clear); KETONE 2+ (Negative); PH 6.0 (4.5-8.0); SPECIFIC GRAVITY 1.015 (1.001-1.030)
[2025-01-06 20:53] LABS: BACTERIA TRACE; LEUKO ESTERASE Negative (Negative); NITRITE Negative (Negative); UROBILINOGEN 0.2 E.U./dl (0.0-1.0)
[2025-01-06] MEDS ORDERED: ACETAMINOPHEN 325 MG TAB PO ONE (21:35)
== END 2025-01-06 23:07 | disposition home or self-care (01) ==
LOC: ED 19:18
DX: E11.65 Type 2 diabetes mellitus with hyperglycemia (principal); R11.2 Nausea with vomiting, unspecified; A08.4 Viral intestinal infection, unspecified; E78.5 Hyperlipidemia, unspecified; G47.00 Insomnia, unspecified; G43.909 Migraine, unspecified, not intractable, without status migrainosus; I12.9 Hypertensive chronic kidney disease with stage 1 through stage 4 chronic kidney disease, or unspecified chronic kidney disease; N18.4 Chronic kidney disease, stage 4 (severe); Z90.49 Acquired absence of other specified parts of digestive tract; Z98.890 Other specified postprocedural states; Z88.1 Allergy status to other antibiotic agents; Z88.5 Allergy status to narcotic agent; Z88.8 Allergy status to other drugs, medicaments and biological substances

== ENCOUNTER → 2025-02-04 | Outpatient (CLI) | payer OTHER ==
[2025-02-04 14:30] LABS: BUN 19 mg/dl (9-23); LDL CHOLESTEROL 59 mg/dL (9-159); SGPT/ALT 13 U/L (5-49)
== END | disposition home or self-care (01) ==
LOC: LAB 13:45
PROVIDERS: Student in an Organized Health Care Education/Training Program; ATTEND Internal Medicine Endocrinology, Diabetes & Metabolism
DX: E13.9 Other specified diabetes mellitus without complications (principal)

== ENCOUNTER 2025-02-09 15:10 | Inpatient (IN) | payer OTHER ==
[~2025-02-09] VITALS: Ht 162.5 cm; Wt 106.4 kg
[2025-02-09 15:23] VITALS: BP 153/81
[2025-02-09] MEDS ORDERED: SODIUM CHLORIDE 0.9% 500 ML IV ONE (15:40)
[2025-02-09] MEDS ORDERED: Ondansetron Hydrochloride 4 MG/2 ML VIAL IV ONE (15:40)
[2025-02-09 15:51] LABS: BASO # 0.0 10*3/uL (0.0-0.1); BASO % 0.7 % (0.0-1.0); EOS # 0.1 10*3/uL (0.0-0.4); EOS % 1.7 % (1.0-4.0); MEAN CELL VOLUME 91.5 fl (81.0-99.0); MEAN CORPUSCULAR HGB 29.2 pg (27.0-31.0); MEAN PLATELET VOLUME 10.3 fl (9.6-12.3); MONO # 0.4 10*3/uL (0.1-1.0); MONO % 7.1 % (3.0-9.0); NEUT # 4.5 10*3/uL (2.3-7.9); NEUT % 73.5 % (47.0-73.0); NUCLEATED RED BLOOD CELL 0.0 % (0.0-0.0); NUCLEATED RED BLOOD CELL 0.0 10*3/uL (0.0-0.0); PLATELET COUNT AUTOMATED 246 10*3/uL (130-400); RED CELL DISTRI WIDTH 12.5 % (0-14.5)
[2025-02-09 16:09] LABS: BUN 10 mg/dl (9-23)
[2025-02-09 20:00] VITALS: BP 148/62
[2025-02-09 20:30] VITALS: BP 148/62
[2025-02-09] MEDS ORDERED: SODIUM CHLORIDE 0.9% 1,000 ML IV SCH (21:10)
[2025-02-09] MEDS ORDERED: ACETAMINOPHEN 325 MG TAB PO PRN (21:30)
[2025-02-09] MEDS ORDERED: PETROLATUM 42% 100 GM JAR T PRN (21:30)
[2025-02-09] MEDS ORDERED: GABAPENTIN 600 MG TAB PO SCH (22:00)
[2025-02-09] MEDS ORDERED: ATORVASTATIN CALCIUM 40 MG TABLET PO SCH (22:00)
[2025-02-09] MEDS ORDERED: ASPIRIN, CHEWABLE 81 MG TAB PO SCH (22:00)
[2025-02-10] VITALS: BP 144/81
[2025-02-10] MEDS ORDERED: INSULIN PUMP (PT'S PUMP FROM HOME) SC SCH (02:20)
[2025-02-10] MEDS ORDERED: DEXTROSE 10 % IN WATER 250 ML DEHP.FR.BG IV PRN (02:20)
[2025-02-10 08:00] VITALS: BP 170/75
[2025-02-10] MEDS ORDERED: LISINOPRIL 10 MG TAB PO SCH (10:00)
[2025-02-10 12:00] VITALS: BP 158/70
[2025-02-10 16:00] VITALS: BP 170/77
[2025-02-10 20:00] VITALS: BP 172/86; BP 177/81
[2025-02-11] VITALS: BP 134/64
[2025-02-11 08:00] VITALS: BP 155/62
[2025-02-11 12:00] VITALS: BP 147/77; BP 155/62
[2025-02-11] MEDS ORDERED: PEPCID40 MG PO (14:42)
[2025-02-11] MEDS ORDERED: NORVASC5 MG PO (14:42)
== END 2025-02-11 15:46 | disposition home or self-care (01) | DRG 149 ==
LOC: ED 15:10 → EDHOLD 18:42 → 4E 18:42
PROVIDERS: Student in an Organized Health Care Education/Training Program; ADMIT Internal Medicine; ATTEND Internal Medicine
DX: R42 Dizziness and giddiness (principal); R94.31 Abnormal electrocardiogram [ECG] [EKG]; E11.40 Type 2 diabetes mellitus with diabetic neuropathy, unspecified; N18.9 Chronic kidney disease, unspecified; E78.5 Hyperlipidemia, unspecified; E11.22 Type 2 diabetes mellitus with diabetic chronic kidney disease; I12.9 Hypertensive chronic kidney disease with stage 1 through stage 4 chronic kidney disease, or unspecified chronic kidney disease; G43.909 Migraine, unspecified, not intractable, without status migrainosus; E11.65 Type 2 diabetes mellitus with hyperglycemia; E55.9 Vitamin D deficiency, unspecified; F51.01 Primary insomnia; K58.9 Irritable bowel syndrome, unspecified; E53.8 Deficiency of other specified B group vitamins; Z92.89 Personal history of other medical treatment; Z88.6 Allergy status to analgesic agent; Z88.1 Allergy status to other antibiotic agents; Z88.8 Allergy status to other drugs, medicaments and biological substances; Z91.09 Other allergy status, other than to drugs and biological substances; Z79.899 Other long term (current) drug therapy; Z79.01 Long term (current) use of anticoagulants; Z79.2 Long term (current) use of antibiotics; Z79.4 Long term (current) use of insulin; Z90.49 Acquired absence of other specified parts of digestive tract; Z82.5 Family history of asthma and other chronic lower respiratory diseases; Z83.3 Family history of diabetes mellitus; Z82.49 Family history of ischemic heart disease and other diseases of the circulatory system